=== PATIENT | female | born 1945 | race Caucasian/White ===

== ENCOUNTER 2017-01-04 23:29 | Inpatient (IN) | payer MEDICARE, BC ==
--- NOTE | 2017-01-04 23:50 | ERNOTE ---
Neuro HPI ER Record Presenting Symptoms: confusion Time Seen by Provider: 01/04/17 23:38 Source: family Exam Limitations: clinical condition Immunizations: IMMUNIZATION HX Immunizations Up to Date Yes History of Influenza Vaccine No Hx Pneumococcal Vaccination Yes Allergies/Adverse Reactions: Allergies Allergy/AdvReac Type Severity Reaction Status Date / Time clidinium [Clidinium] Allergy Unknown Verified 06/27/16 09:02 codeine [Codeine] Allergy Unknown Verified 06/27/16 09:02 escitalopram Allergy Unknown Verified 06/27/16 09:02 latex Allergy Unknown Verified 06/27/16 09:02 hydromorphone HCl Allergy Verified 06/27/16 09:02 [From Dilaudid] opoid AdvReac Severe Uncoded 06/27/16 09:02 Home Medications: HOME MEDICATIONS Aspirin [Aspirin EC] 81 mg PO DAILY 01/25/16 [Last Taken Unknown] Clopidogrel Bisulfate [Plavix] 75 mg PO DAILY 01/25/16 [Last Taken Unknown] Nitroglycerin 0.4 mg SL Q5MIN 01/25/16 [Last Taken Unknown] Sennosides [Senna-Extra] 17.2 mg PO DAILY 01/25/16 [Last Taken Unknown] traMADol HCL [Ultram] 100 mg PO QID PRN 01/25/16 [Last Taken Unknown] Atorvastatin Calcium [Lipitor] 80 mg PO HS tablet 01/28/16 [Last Taken Unknown] Insulin Lispro [Humalog] 0 - 24 units SQ ACHS #1 vial 01/28/16 [Last Taken Unknown] Brimonidine Tartrate [Brimonidine 0.2% Ophthalmic Solution] 1 drop EACHEYE BID 06/14/16 [Last Taken Unknown] Gabapentin [Neurontin] 600 mg PO TID 06/14/16 [Last Taken Unknown] Insulin Detemir [Levemir] 36 units SC BID 06/14/16 [Last Taken Unknown] Levothyroxine Sodium [Synthroid] 88 mcg PO DAILY 06/14/16 [Last Taken Unknown] Oxybutynin Chloride [Ditropan] 15 mg PO TID 06/14/16 [Last Taken Unknown] Chlorhexidine Gluconate [Periogard Oral Rinse 0.12%] 15 ml MM DAILY 01/05/17 [ Last Taken Unknown] Docusate Sodium [Colace] 100 mg PO BID 02/24/17 [Last Taken Unknown] Insulin Glargine,Hum.rec.anlog [Lantus] 15 unit SQ HS 01/05/17 [Last Taken Unknown] Lisinopril 5 mg PO BID 01/05/17 [Last Taken Unknown] Metoprolol Succinate 50 mg PO DAILY 01/05/17 [Last Taken Unknown] Polyvinyl Alcohol [Artificial Tears] 1 drop OP DAILY PRN 01/05/17 [Last Taken Unknown] Potassium Chloride [K-Dur] 20 meq PO DAILY 01/05/17 [Last Taken Unknown] Ranolazine [Ranexa] 500 mg PO BID 01/05/17 [Last Taken Unknown] - History of Present Illness Narrative: Pt had 15 teeth pulled at the [facility] yesterday. Her states that she has not eaten since yesterday and has only had a few sips of juice and water today. She has become more and more confused and a bit combative. he has been unable to check her blood sugar due to her confusion Onset: gradual onset Severity: moderate, severe - Character of Deficits Additional Deficits: Present: weakness, cannot walk, cannot stand Baseline Cognition: Present: alert, oriented x 4 Associated Symptoms: Reports: altered mental status, confused, agitated Prior Treament: Reports: recently seen, treated by physician - teeth pulled Review of Systems - Narrative Narrative: Pt confused and does not give much except that she has not been eating - Review of Systems Constitutional: Present: See HPI, chills, weakness. Absent: recent illness EYE: Present: no symptoms reported ENT: Present: other - mouth pain due to teeth being pulled Respiratory: Present: no symptoms reported Cardiology: Present: no symptoms reported Gastrointestinal/Abdominal: Present: no symptoms reported Genitourinary: Present: no symptoms reported Musculoskeletal: Present: no symptoms reported Skin: Present: no symptoms reported Neurological: Present: no symptoms reported Endocrine: Present: no symptoms reported Hematologic/Lymphatic: Present: no symptoms reported Psych: Present: no symptoms reported - Patient's Past Medical History Patient History - Medical: Diabetes Type 2 Insulin Dependent, Fibromyalgia, Hypothyroidism, Osteoarthritis, Osteoporosis, UTI'S, Other Patient History - Cardiac/Respiratory: Arrhythmias, CHF, Myocardial Infarction, Pneumonia Patient History - Cancer: No Hx of Cancer Patient History - Surgical Procedures: Back Surgery, Colonoscopy, Cardiac stent , EGD, Hysterectomy, Tubal Ligation, Other Patient History - Other: None - Family History Mother Family History - Medical: Father Family History - Medical: - Social History Living Situations: home Abuse History: No History of abuse Psych History: No pertinent hx Does anyone smoke in the home?: No Alcohol Use: none Drug Use: none - Immunizations Immunizations Up to Date: Yes Hx Pneumococcal Vaccination: Yes History of Influenza Vaccine: No Physical Exam - Physical Exam General Appearance: Present: wd/wn, moderate distress, lethargic, irritable Ears, Nose, Throat: Present: other - recent teeth extractions noted. Bruising over the lower jaw Neck: Present: normal inspection Respiratory: Present: no respiratory distress, no accessory muscle use, lungs clear Cardiovascular/Chest: Present: regular rate, rhythm, no murmur, normal peripheral pulses Gastrointestinal/Abdominal: Present: normal bowel sounds, nondistended, soft Extremity Exam: Present: normal inspection, no edema Neurological Exam: Present: other - generally confused and irritable Skin Exam: Present: other - bruising of her jaw and chin Lymphatic Exam: Present: no adenopathy Parks Coma Scale - Assess Eye Opening: To Voice Motor: Localizes to Pain Verbal: Confused - Total Coma Scale Total: 12 ED Progress - Results and Orders Patient's Lab Results:: I have reviewed the patient's lab results. Results and Orders: Laboratory Tests 01/04/17 01/04/17 01/05/17 00:04 00:04 00:04 WBC 8.7 Hgb 13.4 Hct 39.8 Plt Count 178 Sodium 137 Potassium 4.3 Chloride 104 Carbon Dioxide 21.9 L BUN 24 H Creatinine 1.17 Est GFR (Non-Af Amer) 48 L BUN/Creatinine Ratio 20.5 Random Glucose 360 H Lactic Acid, Venous 2.9 H* Calcium 8.3 Calcium Adj for Albumin 8.9 Total Bilirubin 0.7 AST 13 ALT 24 Alkaline Phosphatase 88 Total Protein 6.5 Albumin 2.8 L Urine Appearance Urine pH Ur Specific Cameron Urine Protein 01/05/17 00:35 WBC Hgb Hct Plt Count Sodium Potassium Chloride Carbon Dioxide BUN Creatinine Est GFR (Non-Af Amer) BUN/Creatinine Ratio Random Glucose Lactic Acid, Venous Calcium Calcium Adj for Albumin Total Bilirubin AST ALT Alkaline Phosphatase Total Protein Albumin Urine Appearance Cancelled Urine pH Cancelled Ur Specific Cameron Cancelled Urine Protein Cancelled - Vital Signs Patient's Vital Signs:: I have reviewed the patient's vital signs. - CT/Ultrasound CT/Ultrasound Narrative: Chronic small vessel ischemic disease, nothing acute - Progress/Reassessment Progress:: Unchanged Progress Note-Subjective: 01/05/17 01:25 Pt continues to complain of being cold. Pt sleeps at times but when she is bothered at all by staff for vitals, or tests she complains loudly and is mildly combative pushing staff away from her 01/05/17 01:26 Spoke with Ellie BASSETT, she agrees with admit Departure Clinical Impression: Elevated lactic acid level Altered mental status Qualifiers: Altered mental status type: delirium Qualified Code(s): R41.0 - Disorientation , unspecified Status post tooth extraction Qualifiers: Tooth loss class: unspecified tooth loss Qualified Code(s): K08.409 - Partial loss of teeth, unspecified cause, unspecified class Diabetes type 2, uncontrolled Qualifiers: Diabetes mellitus complication status: with neurologic complications Diabetes mellitus complication detail: with unspecified neuropathy - Departure Disposition: [facility] Condition: Poor
[2017-01-05 00:17] LABS: Hematocrit 39.8 % (37.0-47.0); Hemoglobin 13.4 gm/dL (12.5-16.0); Mean Cell Volume 86.1 fl (78-100); Mean Corpuscular Hgb Conc 33.7 g/dl (32-36); Mean Platelet Volume 11.5 fl (6.0-9.5); Neutrophil # 6.8 K/mm3 (1.3-6.0); Neutrophil % 78.5 % (42-75.0); Platelet Count 178 K/mm3 (150-450); Red Blood Count 4.62 M/mm3 (4.2-5.4); Red Cell Distribution Width 13.2 % (11.5-14.0); White Blood Count 8.7 K/mm3 (4.0-10.5)
[2017-01-05 00:28] LABS: Albumin * 2.8 gm/dl (3.4-5.0); Anion Gap 15.4 mmol/L (6.8-13.8); BUN/Creatinine Ratio 20.5 (9.0-21.6); Bilirubin, Total 0.7 mg/dL (0.0-1.1); Ca. Corrected For Albumin 8.9 mg/dL (8.4-10.2); Calcium * 8.3 mg/dL (7.9-10.9); Carbon Dioxide 21.9 mmol/L (24-32.6); Potassium 4.3 mmol/L (3.4-4.6); Total Protein 6.5 gm/dL (6.2-8.2)
[2017-01-05 00:51] LABS: Urine Bilirubin Negative (NEGATIVE); Urine Blood 50 /ul (NEGATIVE); Urine Ketone 50 mg/dL (NEGATIVE); Urine Nitrite Negative (NEGATIVE); Urine Protein 100 mg/dL (NEGATIVE); Urine Urobilinogen Normal (NORMAL)
[2017-01-05 00:52] LABS: Urine Appearance Clear; Urine Bacteria TRACE; Urine Color Pale Yellow; Urine RBC 0-5 /hpf (0-5); Urine WBC 0-5 /hpf (0-5)
[2017-01-05] MEDS: NORMAL SALINE 1,000 ML IV PRN ×2 (01:02→13:00)
--- OUTSIDE RECORDS SUMMARY | 2017-01-05 02:10 | XMS REPORT | Continuity of Care Document ---
:1945 Author Organization [facility] ([facility]) Address [place] [address] Phone [phone] Care Team Providers Name Role Phone Aimee Medina Primary Care Provider [phone] Source Comments This disclosure is being made pursuant to the Care Everywhere program, applicable federal and state laws, and may not contain all informaitonavailable regarding this patient.[facility] ([facility]) Active Allergies and Adverse Reactions Allergen Noted Date Severity Reactions Comments Clidinium 04/26/2016 Unknown Codeine Urticaria (Hives),Pruritus,Unknown Escitalopram 04/26/2016 Unknown Hydrocodone-Acetaminophen 07/29/2012 OTHER Hydromorphone 04/26/2016 Hallucinations Latex, Natural Rubber Urticaria (Hives),Pruritus,Unknown Povidone-Iodine Unknown Current Medications Prescription Sig. Disp. Refills Start Date End Date Status gabapentin 600 mg Take 900 mg by mouth Active tablet 3 times daily ATORVASTATIN 80 mg Take 80 mg by mouth 5 06/28/2015 Active tablet daily levothyroxine 88 Take 88 mcg by mouth Active mcg tablet every morning before breakfast aspirin 81 mg EC Take 1 tablet (81 mg 90 tablet 11/13/2015 Active tablet total) by mouth daily clopidogrel 75 mg Take 1 tablet (75 mg 90 tablet 11/13/2015 Active tablet total) by mouth daily nitroglycerin 0.4 Place 1 tablet (0.4 25 tablet 11/13/2015 Active mg SL tablet mg total) under the tongue every 5 minutes as needed for Chest pain brimonidine 0.2 % Instill 1 Drop onto 11 01/10/2016 Active ophthalmic solution both eyes every 12 hours. pantoprazole 20 mg Take 1 tablet (20 mg 30 tablet 5 04/26/2016 Active EC tablet total) by mouth daily. metoPROLol Take 2 tablets (50 30 tablet 11 08/02/2016 Active succinate 25 mg XL mg total) by mouth tablet daily. artificial tears Instill 1 Drop onto 30 Each 0 2016 Active (REFRESH PLUS) 0.5 both eyes as needed % ophthalmic for Dry eyes. dropperette insulin glargine Inject 15 Units 10 mL 0 2016 Active (LanTUS) 100 subcutaneously at unit/mL injection bedtime. vial insulin lispro Inject 5-13 Units 20 mL 0 2016 Active (HumaLOG) 100 subcutaneously 3 unit/mL injection times daily before vial meals. Breakfast 5 units, lunch 6 units, supper 8 units. SSI 1:50 for glucose >150 docusate 100 mg Take 1 capsule (100 60 capsule 0 2016 Active capsule mg total) by mouth 2 times daily as needed for Constipation. sennosides 8.6 mg Take 1-2 tablets 30 tablet 0 2016 Active tablet (8.6-17.2 mg total) by mouth 2 times daily as needed for Constipation. traMADol 50 mg Take 1-2 tablets 20 tablet 0 10/17/2016 Active tablet (50-100 mg total) by mouth every 6 hours as needed for Pain. chlorhexidine 0.12 Rinse with 10 ML for 473 mL 0 10/17/2016 Active % oral rinse 30 seconds twice daily for 10 days. Swish and spit out excess. Nothing by mouth for 30 minutes. oxybutynin 5 mg Take 5 mg by mouth 3 11 11/08/2016 Active tablet times daily. potassium chloride Take 20 mEq by mouth 0 09/04/2016 Active 20 mEq tablet daily. with food RANEXA 500 mg XR Take 500 mg by mouth 11 11/02/2016 Active tablet 2 times daily. furosemide 20 mg 1 tablet (20 mg 90 tablet 3 11/22/2016 Active tablet total) daily. Take 2 tablets daily for 2 days, then decrease to 1 tab daily. amoxicillin PO Take 500 mg by mouth Active 3 times daily. chlorhexidine 0.12 Rinse with 10 ML for 473 mL 0 01/03/2017 Active % oral rinse 30 seconds twice daily for 10 days. Swish and spit out excess. Nothing by mouth for 30 minutes. amoxicillin 500 mg Take 1 capsule (500 21 capsule 0 01/03/2017 Active capsule mg total) by mouth 3 7 times daily for 7 days. until gone. traMADol 50 mg Take 1-2 tablets 20 tablet 0 01/03/2017 Active tablet (50-100 mg total) by mouth every 6 hours as needed for Pain. Active Problems Problem Noted Date Dental caries 01/03/2017 Type 2 diabetes mellitus with ophthalmic complication 08/02/2016 Neurogenic bladder 08/02/2016 Non-ST elevation myocardial infarction (NSTEMI), initial episode of care 07/31 Ischemic chest pain 07/28/2016 Essential hypertension, benign 07/28/2016 Hyperlipidemia 07/28/2016 Diabetic ketoacidosis without coma associated with type 2 diabetes 07/28/2016 mellitus Acute cystitis without hematuria 07/28/2016 Constipation 12/11/2015 ST elevation myocardial infarction (STEMI) of inferior wall, initial 2014 episode of care CAD in [place] artery 11/09/2015 Overview: Inferior [place] & PCI dRCA, 3.0 x 16 mm, Liberte BMS, [facility] 01/2007. Inferior STEMI, PCI mRCA, 3.0 x 24 Senergy ABBEY & post-dil w/ 3.25 x 15 Quantum , [facility] 12.29.2014 Staged PCI mLAD, 3.0x 38 Senergy ABBEY & post-dil w/ 3.5 x 15 Quantum; POBA jailed D1 2.0 x12 Emerge, [facility] 12.31.2014 Dry eye syndrome 07/01/2015 Seasonal allergic conjunctivitis 07/01/2015 Proliferative diabetic retinopathy without macular edema associated with 07/01 type 2 diabetes mellitus Compression fracture 08/14/2012 Type II or unspecified type diabetes mellitus without mention of 10/14/2008 complication, uncontrolled Abdominal pain, generalized 09/21/2008 Most Recent Encounters Date Type Specialty Providers Description 01/04/2017 Telephone Cardiac Rehabilitation Teresa Urbano DO 01/03/2017 Office Visit Heart and Vascular Teresa Urbano Dx: Benign S, DO essential HTN (Primary Dx) 01/03/2017 Office Visit Dentistry Juan Barlow Dx: Pain (Primary DDS Dx) 01/03/2017 Office Visit Dentistry Juan Barlow Dx: Diabetes DDS (Primary Dx) 01/02/2017 Telephone Dentistry Kitty Kinsey Chief Comp: Dental M, RN Injury 12/19/2016 Office Visit Dentistry Atif Ivy Chief Comp: INGRIS Galvan Patient Reported Reason For Visit 11/22/2016 Office Visit Heart and Vascular Teresa Urbano Dx: Chronic S, DO systolic heart failure (Primary Dx) 11/17/2016 Office Visit Dentistry Chief Comp: Patient Reported Reason For Visit 11/17/2016 Office Visit Dentistry Bertin Mora, Dx: Infected DDS dental carries Nagi Hebert, (Primary Dx) DDS 10/26/2016 Hospital Rehabilitation Therapist, Rehab Dx: BPPV (benign Encounter paroxysmal positional vertigo), left (Primary Dx) 10/25/2016 Office Visit Heart and Vascular Teresa Urbano Chief Comp: S, DO Patient Reported Reason For Visit 10/17/2016 Office Visit Dentistry Bertin Mora, Dx: Caries DDS (Primary Dx) Atif Ivy DDS Social History Tobacco Use Types Packs/Day Years Used Date Former Smoker Cigarettes 20 Quit: 01/03/1985 Smokeless Tobacco: Never Used Alcohol Use Drinks/Week oz/Week Comments No Last Filed Vital Signs Vital Sign Reading Time Taken Blood Pressure 116/57 01/03/2017 8:18 AM [employer] Pulse 71 01/03/2017 8:18 AM [employer] Temperature 36.8 C (98.2 F) 01/03/2017 8:18 AM [employer] Respiratory Rate 18 2016 7:21 AM CDT Height 1.676 m (5' 6") 11/22/2016 11:40 AM [employer] Weight 73.029 kg (161 lb) 11/22/2016 11:40 AM [employer] Body Mass Index 26 11/22/2016 11:40 AM [employer] Oxygen Saturation 97% 2016 7:21 AM CDT Plan of Care Date Type Specialty Providers Description 01/29/2017 Appointment Dentistry Atif Ivy DDS Chief Comp: Patient [address] [place] [address] [phone] (Fax) Health Maintenance Due Date Last Done Comments Hepatitis B Vaccine (1 of 3 - Primary 1945 Series) Tdap Vaccine 1955 Td Vaccine 1962 Mammogram 1984 Zoster Vaccine 2004 Osteoporosis Screening (DXA Bone 2009 Density) Pneumococcal Vaccine (1 of 2 - PCV13) 2009 DIABETIC: Foot Exam 04/25/2011 Influenza Vaccine: Seasonal (#1) 06/12/2016 DIABETIC: Retinal Eye Exam 07/01/2016 07/01/2015 DIABETIC: Hemoglobin A1C 01/25/2017 07/28/2016, 11/10/2015, 09/21/2008 DIABETIC: Cholesterol 07/28/2017 07/28/2016, 09/21/2008 Diabetic: Hdl 07/28/2017 07/28/2016, 09/21/2008 Diabetic: Ldl 07/28/2017 07/28/2016, 09/21/2008 DIABETIC: Microalbumin 07/28/2017 07/28/2016 DIABETIC: Triglycerides 07/28/2017 07/28/2016, 09/21/2008 Colonoscopy 12/02/2018 12/02/2008 Procedures from Last 3 Months Procedure Name Priority Date/Time Associated Comments Diagnosis ABSTRACTED BY Routine 01/04/2017 11:56 AM Pain Results for this [employer] procedure are in the results section. ABSTRACTED BY Routine 10/23/2016 9:00 AM Dental caries Results for this [employer] procedure are in the results section. Results from Last 3 Months DENTOALVEOLAR SURGERY (01/04/2017 11:56 AM) Juan Huitron DDS 01/04/2017 11:56 AM Full Mouth Tooth Extraction Procedure Note Procedure Date: 01/03/17 Location:[facility] Pre-operative Diagnosis: Nonrestorable teeth #6, 8, 9, 10, 11, 12, 13, 14; 22, 23, 24, 25 26, 27, 28. Post-operative Diagnosis:Same. Faculty Surgeon: Juan Barlow Resident Surgeon: Luis Carlos Mckeon DDS Assistants: Maggie Young Procedure:Tooth extraction # 6, 8, 9, 10, 11, 12, 13, 14 ; 23, 24, 25, 26, 28([id number] x 13), Surgical removal # 22, 27 ([id number] x 2), Alveoloplasty UR,UL,LR,LL (D7310 x 4) Consent Obtained: The risks, benefits, indications, potential complications, and alternatives were explained to the patient and informed consent obtained. Description of Operation/Procedure: The patient presented [facility] the [facility] for multiple tooth extractions.The medical history was reviewed and there are no changes. A thorough pre-procedural anesthetic evaluation was completed. IV access was obtained.Appropriate monitors were placed and checked.Oxygen was administered via nasal cannula.The patient was prepped and draped in the usual fashion.Sedative agents were administered and titrated to desired effect. Local anesthetic was administered and given time to take effect. Gauze was placed to protect the oropharynx.A crestal incision was made in the maxilla and a full thickness flap was elevated. Teeth # 6, 8, 9, 10, 11, 12, 13, 14 were then extracted with elevator and forceps technique without complication. The sockets were curetted and the entire area was irrigated.The gingival tissues were trimmed and reapproximated with 3-0 chromic gut suture in continuous fashion after placement of gel foam.A crestal incision was made in the mandible and a full thickness flap was elevated.Teeth # 23, 24, 25, 26, 28 were extracted with elevator and forceps technique without complication.Teeth #22, 27 required removal of bone with a handpiece.Major alveoloplasty was completed to prepare the ridge for a prosthesis. The sockets were curetted and the entire area was irrigated.The gingival tissues were trimmed and reapproximated with 3-0 chromic gut suture in continuous fashion after placement of gel foam.Gauze was removed from the mouth and fresh gauze was placed to aid in hemostasis.The patient tolerated the procedure well and was discharged in stable condition. Agents: 6.8 cc 0.5% marcaine with 1:200,000 epinephrine 5.1cc3% carbocaine without epinephrine Findings:As above. Specimens:None. EBL:Minimal Fluids: None Suture: 3-0 chromic gut Complications:The patient tolerated the procedure well and had no complications. Plan: RTC prn. Denture fabrication after 6 weeks of healing Discharge: Patient approved for discharge by dentist. Teaching Statement: Dr. Juan Barlow was present for [place] portions of the procedure, defined as assurance of anesthesia, and was immediately available for the remainder of the procedure. Luis Carlos Mckeon DDS BLOOD GLUCOSE, BEDSIDE (01/03/2017 8:39 AM)Only the most recent of3 resultswithin the time period is included. Component Value Range Glucose, Accu-Chek 288(H) 65-99 mg/dL Specimen Blood, capillary HOSP DENT SINGLE PANOREX (EACH) (11/17/2016 1:13 PM)DENTOALVEOLAR SURGERY (10/2016 9:00 AM) Ricco Varner DDS 10/23/20169:00 AM Tooth Extraction Procedure Note Procedure Date: 10/17/16 Location:[facility] Pre-operative Diagnosis:Carious, nonrestorable tooth #3 Post-operative Diagnosis:same Faculty Surgeon: Juan Barlow Resident Surgeon: Atif Ivy DDS Assistants: Andreas Prieto Procedure:Tooth extraction #3 (D7140) with local anesthesia Consent Obtained: The risks, benefits, indications, potential complications, and alternatives were explained to the patient and informed consent obtained. Description of Operation/Procedure: The patient presented to [facility] for tooth extraction.The medical history was reviewed and there are no changes. Local anesthetic was administered and given time to take effect. Gauze was placed to protect the oropharynx.Releasing incisions were made to allow a flap buccal to #3.Tooth #3 was removed with standard elevator and forceps technique without complications.Avitene was placed and a figure 8 suture (3-0 gut).Hemostasis was .The area was irrigated with sterile saline and moist gauze was placed to aid in hemostasis. The patient was discharged in stable condition. Agents: 1.7 cc 2% lidocaine with 1:100,000 epinephrine Findings:As above. Specimens:None. EBL:Minimal Fluids: None Suture: None Complications:None RTC:prn Teaching Statement: Dr. Ricco Ding was present for fel[place] portions of the procedure, defined as assurance of anesthesia, and was immediately available for the remainder of the procedure. Atif Ivy DDS
--- OUTSIDE RECORDS SUMMARY | 2017-01-05 02:10 | XMS REPORT | Continuity of Care Document ---
:1945 Author Organization [facility] ([facility]) Address [place] [address] Phone [phone] Care Team Providers Name Role Phone Aimee Medina Primary Care Provider [phone] Source Comments This disclosure is being made pursuant to the Care Everywhere program, applicable federal and state laws, and may not contain all informaitonavailable regarding this patient.[facility] ([facility]) Active Allergies and Adverse Reactions Allergen Noted [...] initial 2014 episode of care CAD in [place] artery 11/09/2015 Overview: Inferior [place] & PCI dRCA, 3.0 x 16 mm, [...] Taken Blood Pressure 116/57 01/03/2017 8:18 AM [employer] Pulse 71 01/03/2017 8:18 AM [employer] Temperature 36.8 C (98.2 F) 01/03/2017 8:18 AM [employer] Respiratory Rate 18 2016 7:21 AM CDT Height 1.676 m (5' 6") 11/22/2016 11:40 AM [employer] Weight 73.029 kg (161 lb) 11/22/2016 11:40 AM [employer] Body Mass Index 26 11/22/2016 11:40 AM [employer] Oxygen Saturation 97% 2016 7:21 AM CDT Plan of Care Date Type Specialty Providers Description 01/29/2017 Appointment Dentistry Atif Ivy DDS Chief Comp: Patient [address] [place] [address] [phone] (Fax) Health Maintenance Due Date Last Done [...] AM Pain Results for this [employer] procedure are in the results section. ABSTRACTED BY Routine 10/23/2016 9:00 AM Dental caries Results for this [employer] procedure are in the results section. Results [...] of Operation/Procedure: The [facility] presented [facility] for multiple tooth extractions.The medical history [...] of Operation/Procedure: The patient presented to the [facility] for tooth extraction.The medical history was [...]
--- NOTE | 2017-01-05 02:43 | HP ---
Chief Complaint - Chief Complaint Date of Service: 01/05/17 Time of Service: 02:33 Chief Complaint: "Confusion, Agitation,". Source of HPI- Pt; unreliable due to AMS, pt's Addison, ER provider report. History of Present Illness: Mrs Gaona is a 71-yr-old [place] pt of Dr. Aimee Medina with a PMH of: Angina at rest, Chronic Pain Syndrome, DM II, Glaucoma, HLD, IBS, CT & Osteoporosis. History is unobtainable from pt due to AMS. She is curled up on the stretcher and when asked any questions, she repeatedly answers, "cold! cold!." I reached the pt's , Addison, by phone and he was able to relay pt's sickness events that led to coming to the ED tonight. He states that pt, was seen by the Dentist at the [facility] on 01/03/17 for a planned teeth extraction. A referral had been made by Dr. An for the remaining teeth to be extracted due to poor/non- restorable dentition, with the plan to replace with complete dentures. On the evening of , he gave her the prescribed Tramadol for pain. He is unsure if she was started on any prophylactic antibiotic. Then on morning hours of 01/04/17, he gave her another Tramadol for pain. Later, he noticed that the pt was acting confused. But, he is uncertain if the confusion began before or after Tramadol administration. He reports that as the day progressed, the confusion got worse. She could not tell where their bedroom was after using the toilet. Addison says that she was also saying " silly things." She also could not eat or drink anything and did not take any other medications during the day. He states that he attempted to help her out of bed to bring her to the hospital, but pt could not follow commands to move or stand up. He then chose to call the EMS and she was brought to [facility] ER. During evaluation at the ED, pt got agitated easily and would not cooperate with treatment cares. A CT of the head did not have any acute findings. The CXR, hematology & chemistry labs, and UA were all also unremarkable. Pt remained in somnolence at the time of exam and would yell with any external stimuli. She will be admitted under observation status due to mental Status changes. - Patient's Past Medical History Patient History - Medical: Diabetes Type 2 Insulin Dependent, Fibromyalgia, Glaucoma, Hypothyroidism, Osteoarthritis, Osteoporosis, UTI'S, Other - Angina at rest, IBS, Patient History - Cardiac/Respiratory: Arrhythmias, CHF, Hyperlipidemia, Myocardial Infarction, Pneumonia Patient History - Cancer: No Hx of Cancer Patient History - Surgical Procedures: Back Surgery, Colonoscopy, Cardiac stent , EGD, Hysterectomy, Tubal Ligation, Other Patient History - Other: None - Family History Mother Family History - Medical: Father Family History - Medical: - Social History Living Situations: home Abuse History: No History of abuse Psych History: No pertinent hx Does anyone smoke in the home?: No Smoking Status: Former smoker Alcohol Use: none Drug Use: none - Immunizations Immunizations Up to Date: Yes Hx Pneumococcal Vaccination: Yes History of Influenza Vaccine: Yes Review Of Systems (GEN) - Review of Systems Additional Comments: ROS unobtainable due to AMS. Immunizations: IMMUNIZATION HX Immunizations Up to Date Yes History of Influenza Vaccine No Hx Pneumococcal Vaccination Yes Allergies/Adverse Reactions: Allergies Allergy/AdvReac Type Severity Reaction Status Date / Time clidinium [Clidinium] Allergy Unknown Verified 01/05/17 03:52 codeine [Codeine] Allergy Unknown Verified 01/05/17 03:52 escitalopram Allergy Unknown Verified 01/05/17 03:52 latex Allergy Unknown Verified 01/05/17 03:52 hydromorphone HCl Allergy Verified 01/05/17 03:52 [From Dilaudid] opoid AdvReac Severe Uncoded 01/05/17 03:52 Home Medications: HOME MEDICATIONS Aspirin [Aspirin EC] 81 mg PO DAILY 01/25/16 [Last Taken Unknown] Clopidogrel Bisulfate [Plavix] 75 mg PO DAILY 01/25/16 [Last Taken Unknown] Nitroglycerin 0.4 mg SL Q5MIN 01/25/16 [Last Taken Unknown] Sennosides [Senna-Extra] 17.2 mg PO DAILY 01/25/16 [Last Taken Unknown] traMADol HCL [Ultram] 100 mg PO QID PRN 01/25/16 [Last Taken Unknown] Atorvastatin Calcium [Lipitor] 80 mg PO HS tablet 01/28/16 [Last Taken Unknown] Insulin Lispro [Humalog] 0 - 24 units SQ ACHS #1 vial 01/28/16 [Last Taken Unknown] Brimonidine Tartrate [Brimonidine 0.2% Ophthalmic Solution] 1 drop EACHEYE BID 06/14/16 [Last Taken Unknown] Gabapentin [Neurontin] 600 mg PO TID 06/14/16 [Last Taken Unknown] Insulin Detemir [Levemir] 36 units SC BID 06/14/16 [Last Taken Unknown] Levothyroxine Sodium [Synthroid] 88 mcg PO DAILY 06/14/16 [Last Taken Unknown] Oxybutynin Chloride [Ditropan] 15 mg PO TID 06/14/16 [Last Taken Unknown] Chlorhexidine Gluconate [Periogard Oral Rinse 0.12%] 15 ml MM DAILY 01/05/17 [ Last Taken Unknown] Docusate Sodium [Colace] 100 mg PO BID 01/05/17 [Last Taken Unknown] Fexofenadine HCl 180 mg PO BID 01/05/17 [Last Taken Unknown] Furosemide [Lasix] 40 mg PO DAILY 01/05/17 [Last Taken Unknown] Insulin Glargine,Hum.rec.anlog [Lantus] 15 unit SQ HS 01/05/17 [Last Taken Unknown] Lisinopril 5 mg PO BID 01/05/17 [Last Taken Unknown] Metoprolol Succinate 50 mg PO DAILY 01/05/17 [Last Taken Unknown] Oxybutynin Chloride [Ditropan Xl] 10 mg PO DAILY 01/05/17 [Last Taken Unknown] Pantoprazole Sodium [Protonix] 20 mg PO DAILY 01/05/17 [Last Taken Unknown] Polyvinyl Alcohol [Artificial Tears] 1 drop OP DAILY PRN 01/05/17 [Last Taken Unknown] Potassium Chloride [K-Dur] 20 meq PO DAILY 01/05/17 [Last Taken Unknown] Ranolazine [Ranexa] 500 mg PO BID 01/05/17 [Last Taken Unknown] Exam - Exam Vital Signs: Vital Signs - Last Taken Temp 37.2 C 01/05/17 02:01 Pulse 105 H 01/05/17 02:01 Resp 18 01/05/17 02:01 BP 187/70 01/05/17 02:01 Pulse Ox 98 01/05/17 02:01 Constitutional: Present: Moderate distress, Somnolent, Other - Yells when touched, says she is cold., Elderly ENT Exam: Present: other - Bruising on chin and around the mouth. Missing dentition, stitches on lower gums, Eye Exam: bilateral eye: normal inspection, PERRL Neck: Present: trachea midline, tender lateral Back Exam: Present: normal inspection, no CVA tenderness Breasts: Present: Exam deferred Respiratory: Present: lungs clear, no accessory muscle use, No wheezing Cardiovascular/Chest: Present: normal peripheral pulses, regular rate, rhythm, no edema, no murmur Abdomen: Present: Normal bowel sounds, soft, nontender /Rectal: Present: Exam deferred Extremity: Present: normal inspection, no pedal edema Skin Exam: Present: other - ecchymosis on mouth region. Lymphatic: Present: no adenopathy Neurologic: Present: disoriented x 3 Appearance: Present: impaired insight Eye contact: Present: refused to answer, uncooperative Thoughts: Present: no apparent hallucination, incoherent Diagnostic Studies: Laboratory Results WBC 8.7 K/mm3 (4.0-10.5) 01/04/17 00:04 RBC 4.62 M/mm3 (4.2-5.4) 01/04/17 00:04 Hgb 13.4 gm/dL (12.5-16.0) 01/04/17 00:04 Hct 39.8 % (37.0-47.0) 01/04/17 00:04 MCV 86.1 fl (78-100) 01/04/17 00:04 MCH 29.0 pg (27-31) 01/04/17 00:04 MCHC 33.7 g/dl (32-36) 01/04/17 00:04 RDW 13.2 % (11.5-14.0) 01/04/17 00:04 Plt Count 178 K/mm3 (150-450) 01/04/17 00:04 MPV 11.5 fl (6.0-9.5) H 01/04/17 00:04 Immature Gran % (Auto) 0.30 % (0.001-0.429) 01/04/17 00:04 Immature Gran # (Auto) 0.03 K/mm3 (0.000-0.0310) 01/04/17 00:04 Neutrophils % 78.5 % (42-75.0) H 01/04/17 00:04 Lymphocytes % 13.0 % (20-51) L 01/04/17 00:04 Monocytes % 7.6 % (0.0-9) 01/04/17 00:04 Eosinophils % 0.1 % (0.0-3.0) 01/04/17 00:04 Basophils % 0.5 % (0.0-1.0) 01/04/17 00:04 Nucleated RBC % 0.0 k/mm3 (0-1) 01/04/17 00:04 Neutrophils # 6.8 K/mm3 (1.3-6.0) H 01/04/17 00:04 Lymphocytes # 1.1 k/mm3 (1.5-3.5) L 01/04/17 00:04 Monocytes # 0.7 k/mm3 (0.0-1.0) 01/04/17 00:04 Eosinophils # 0.0 k/mm3 (0.0-0.7) 01/04/17 00:04 Absolute Basophils 0.0 k/mm3 (0.0-0.1) 01/04/17 00:04 Sodium 137 mmol/L (132-142) 01/04/17 00:04 Plasma Sodium 141 mmol/L (130-142) 01/04/17 00:04 Potassium 4.3 mmol/L (3.4-4.6) 01/04/17 00:04 Chloride 104 mmol/L (97-106) 01/04/17 00:04 Carbon Dioxide 21.9 mmol/L (24-32.6) L 01/04/17 00:04 Anion Gap 15.4 mmol/L (6.8-13.8) H 01/04/17 00:04 BUN 24 mg/dL (3-23) H 01/04/17 00:04 Creatinine 1.17 mg/dL (0.4-1.4) 01/04/17 00:04 Est GFR (Non-Af Amer) 48 mL/min (60-130) L 01/04/17 00:04 BUN/Creatinine Ratio 20.5 (9.0-21.6) 01/04/17 00:04 Random Glucose 360 mg/dL (70-110) H 01/04/17 00:04 Lactic Acid, Venous 2.9 mmol/L (0.4-2.0) H* 01/05/17 00:04 Calcium 8.3 mg/dL (7.9-10.9) 01/04/17 00:04 Calcium Adj for Albumin 8.9 mg/dL (8.4-10.2) 01/04/17 00:04 Total Bilirubin 0.7 mg/dL (0.0-1.1) 01/04/17 00:04 AST 13 U/L (0-48) 01/04/17 00:04 ALT 24 U/L (19-67) 01/04/17 00:04 Alkaline Phosphatase 88 U/L (50-170) 01/04/17 00:04 Total Protein 6.5 gm/dL (6.2-8.2) 01/04/17 00:04 Albumin 2.8 gm/dl (3.4-5.0) L 01/04/17 00:04 Urine Color Pale yellow 01/05/17 00:46 Urine Appearance Clear 01/05/17 00:46 Urine pH 6.0 pH (5.0-7.0) 01/05/17 00:46 Ur Specific Excello 1.020 SP.GR. (1.005-1.010) 01/05/17 00:46 Urine Protein 100 mg/dL (NEGATIVE) H 01/05/17 00:46 Urine Glucose (UA) >=1000 mg/dL (NEGATIVE) H 01/05/17 00:46 Urine Ketones 50 mg/dL (NEGATIVE) 01/05/17 00:46 Urine Blood 50 /ul (NEGATIVE) H 01/05/17 00:46 Urine Nitrate Negative (NEGATIVE) 01/05/17 00:46 Urine Bilirubin Negative mg/dl (NEGATIVE) 01/05/17 00:46 Prot Sulfosalicylic Acd 4+ mg/dL (0) H 01/05/17 00:46 Urine Urobilinogen Normal EU/dl (NORMAL) 01/05/17 00:46 Ur Leukocyte Esterase Negative /ul (NEGATIVE) 01/05/17 00:46 Urine RBC 0-5 /hpf (0-5) 01/05/17 00:46 Urine WBC 0-5 /hpf (0-5) 01/05/17 00:46 Ur Epithelial Cells 5-10 /hpf (0-5) H 01/05/17 00:46 Ur Squamous Epith Cells Cancelled 01/05/17 00:35 Ur Transition Epith Cell Cancelled 01/05/17 00:35 Ur Renal Epithelial Cell Cancelled 01/05/17 00:35 Calcium Oxalate Crystal Cancelled 01/05/17 00:35 Uric Acid Crystals Cancelled 01/05/17 00:35 Triple Phos Crystals Cancelled 01/05/17 00:35 Other Crystals Cancelled 01/05/17 00:35 Amorphous Sediment Cancelled 01/05/17 00:35 Urine Bacteria Trace (NONE) 01/05/17 00:46 Hyaline Casts Cancelled 01/05/17 00:35 Fine Granular Casts Cancelled 01/05/17 00:35 Coarse Granular Casts Cancelled 01/05/17 00:35 Waxy Casts Cancelled 01/05/17 00:35 RBC Casts Cancelled 01/05/17 00:35 WBC Casts Cancelled 01/05/17 00:35 Other Casts Cancelled 01/05/17 00:35 Urine Mucus Cancelled 01/05/17 00:35 Urine Trichomonas Cancelled 01/05/17 00:35 Urine Yeast Cancelled 01/05/17 00:35 Urine Sperm Cancelled 01/05/17 00:35 Ur Oval Fat Bodies Cancelled 01/05/17 00:35 Urine Culture Comments Culture to follow 01/05/17 00:46 Assessment/Plan - Assessment/Plan (1) Altered mental status Assessment: Mrs. gaona'kash AMS is noted with somnolence, agitation/irritability, confusion and inability to cooperate or follow commands. The head CT has negative findings for CVA, hence making it unlikely that this may be related to vascular dementia , but can consider MRI of the brain should the other test proof to be negative or if there is no improvement in cognitive functioning. The conditions that are likely contributing to the pt's delirious state are: a.) Sedation drugs- with the pt undergoing recent invasive procedure which required use of conscious sedation, it is likely the agitation or somnolence are the after effects of the sedating agents. b.) Narcotic/opioids- She received two doses of Tramadol, it's use on elderly can cause impaired psychomotor function. Will hold this med as well as other medications except for antihypertensive medications. c.) Infection- WBC was normal, the CXR, UA did not show any infection. Lactic acid was elevated at 2.9. However, with recent invasive procedure, blood stream infection cannot be ruled out. Will obtain blood cultures. It might be beneficial to cover with prophylactic antibiotics as the records show that she had gross decay involving the dentition that had remained prior to the extraction on 01/03/17. Will start clindamycin, could also consider Ampicillin sulbactam 3 gm q 6 hrs as it has broader coverage against oral anaerobes. Problem: Acute Qualifiers: Altered mental status type: delirium Qualified Code(s): R41.0 - Disorientation, unspecified (2) Lactic acidosis Assessment: Even though lactic acid was elevated, she has NO fevers, tachycardia, nor elevation of WBC to suggest sepsis. However, her serum blood sugar was found to be 360. she had an anion gap of 15.3. and may have had a very mild DKA. A moderate degree of lactic acidodis can occur in some pts with DKA. Will monitor V.S & CBC. Problem: Acute (3) Potential alteration in nutrition Assessment: Nutrition may be affected due to teeth extraction. Will involve sander machine to assist with dietary recommendations. Problem: Acute (4) Generalized weakness Assessment: Involve PT/OT for strengthening. Problem: Acute (5) Diabetes type 2, uncontrolled Assessment: continue accuchecks AC/HS, will cut back on Lantus to 15 units as she is not eating well. Add SSI. Problem: Chronic Qualifiers: Diabetes mellitus complication status: with neurologic complications Diabetes mellitus complication detail: with unspecified neuropathy (6) Chronic pain Assessment: Hold any sedating medications due to AMS/somnolence. Problem: Chronic Qualifiers: Chronic pain type: chronic pain syndrome Qualified Code(s): G89.4 - Chronic pain syndrome (7) GERD (gastroesophageal reflux disease) Assessment: Stable- on Omeprazole. Problem: Chronic (8) Hyperlipemia Problem: Chronic (9) HTN (hypertension) Assessment: Continue Lisinopril and metoprolol. Problem: Chronic Qualifiers: Hypertension type: essential hypertension Qualified Code(s): I10 - Essential (primary) hypertension
[2017-01-05] MEDS ORDERED: INSULIN LISPRO 100 UNITS/ML VIAL SC SCH (02:45)
[2017-01-05 04:16] LABS: Urine Bilirubin Negative (NEGATIVE); Urine Blood 50 /ul (NEGATIVE); Urine Ketone 50 mg/dL (NEGATIVE); Urine Nitrite Negative (NEGATIVE); Urine Protein 100 mg/dL (NEGATIVE); Urine Urobilinogen Normal (NORMAL)
[2017-01-05 04:17] LABS: Urine Appearance Slightly Cloudy; Urine Bacteria None Seen; Urine Color Yellow; Urine RBC 0-5 /hpf (0-5); Urine WBC 0-5 /hpf (0-5)
[2017-01-05] MEDS: CLINDAMYCIN PHOSPHATE 600 MG in DEXTROSE 5 % IN WATER 100 ML IV SCH ×4 (05:47→13:42)
[2017-01-05 06:06] LABS: Hemoglobin 12.6 gm/dL (12.5-16.0); Mean Cell Volume 86.7 fl (78-100); Mean Corpuscular Hemoglobin 29.5 pg (27-31); Mean Corpuscular Hgb Conc 34.1 g/dl (32-36); Mean Platelet Volume 11.6 fl (6.0-9.5); Neutrophil # 8.4 K/mm3 (1.3-6.0); Neutrophil % 78.4 % (42-75.0); Platelet Count 184 K/mm3 (150-450); Red Blood Count 4.27 M/mm3 (4.2-5.4); Red Cell Distribution Width 13.2 % (11.5-14.0); White Blood Count 10.7 K/mm3 (4.0-10.5)
[2017-01-05 06:26] LABS: Anion Gap 13.8 mmol/L (6.8-13.8); BUN/Creatinine Ratio 20.2 (9.0-21.6); Calcium * 8.3 mg/dL (7.9-10.9); Carbon Dioxide 24.1 mmol/L (24-32.6); Estimated Creat Clear 43.7; Potassium 3.9 mmol/L (3.4-4.6)
[2017-01-05] MEDS: INSULIN LISPRO 100 UNITS/ML VIAL SC SCH ×4 (06:56→23:58)
[2017-01-05] MEDS: LISINOPRIL 5 MG TABLET PO SCH (09:03)
[2017-01-05] MEDS: METOPROLOL SUCCINATE 50 MG TABLET.SA PO SCH (09:03)
[2017-01-05] MEDS: PANTOPRAZOLE SODIUM 20 MG TABLET.DR PO SCH (09:03)
[2017-01-05] MEDS ORDERED: POLYVINYL ALCOHOL 150 DROP BTL OP PRN (12:50)
[2017-01-05] MEDS ORDERED: INSULIN DETEMIR 100 UNITS/ML VIAL SC SCH (13:00)
[2017-01-05] MEDS ORDERED: ACETAMINOPHEN 650 MG SUPP.RECT RC PRN (14:18)
[2017-01-05] MEDS ORDERED: INSULIN GLARGINE,HUM.REC.ANLOG 100 UNITS/ML VIAL SC SCH (21:00)
[2017-01-05] MEDS: DOCUSATE SODIUM 100 MG CAPSULE PO SCH (23:57)
[2017-01-05] MEDS: BRIMONIDINE TARTRATE 50 DROP BTL EACHEYE SCH (23:57)
[2017-01-06] MEDS: LORazepam 2 MG/ML DISP.SYRIN IV PRN (00:10)
[2017-01-06] MEDS: INSULIN DETEMIR 100 UNITS/ML VIAL SC SCH ×2 (01:33→10:02)
[2017-01-06] MEDS: KETOROLAC TROMETHAMINE 30 MG/ML VIAL IV PRN ×3 (01:34→23:12)
[2017-01-06 06:31] LABS: Hematocrit 35.6 % (37.0-47.0); Hemoglobin 11.8 gm/dL (12.5-16.0); Mean Cell Volume 87.9 fl (78-100); Mean Corpuscular Hemoglobin 29.1 pg (27-31); Mean Corpuscular Hgb Conc 33.1 g/dl (32-36); Mean Platelet Volume 11.7 fl (6.0-9.5); Neutrophil # 6.8 K/mm3 (1.3-6.0); Neutrophil % 75.6 % (42-75.0); Platelet Count 183 K/mm3 (150-450); Red Blood Count 4.05 M/mm3 (4.2-5.4); Red Cell Distribution Width 13.4 % (11.5-14.0)
[2017-01-06 06:46] LABS: Anion Gap 19.1 mmol/L (6.8-13.8); Calcium * 8.2 mg/dL (7.9-10.9); Carbon Dioxide 16.9 mmol/L (24-32.6); Estimated Creat Clear 47.6
[2017-01-06] MEDS: LEVOTHYROXINE SODIUM 88 MCG TABLET PO SCH (07:39)
[2017-01-06] MEDS: INSULIN LISPRO 100 UNITS/ML VIAL SC SCH ×3 (07:51→17:44)
[2017-01-06] MEDS ORDERED: ASPIRIN 81 MG TABLET.DR PO SCH (09:00)
[2017-01-06] MEDS: ZIPRASIDONE HCL 20 MG CAPSULE PO SCH (09:59)
[2017-01-06] MEDS: SENNOSIDES 8.6 MG TABLET PO SCH (10:00)
[2017-01-06] MEDS: LISINOPRIL 5 MG TABLET PO SCH ×2 (10:00)
[2017-01-06] MEDS: DOCUSATE SODIUM 100 MG CAPSULE PO SCH (10:00)
[2017-01-06] MEDS: BRIMONIDINE TARTRATE 50 DROP BTL EACHEYE SCH (10:00)
[2017-01-06] MEDS: PANTOPRAZOLE SODIUM 20 MG TABLET.DR PO SCH (10:01)
[2017-01-06] MEDS: CLOPIDOGREL BISULFATE 75 MG TABLET PO SCH (10:01)
[2017-01-06] MEDS: METOPROLOL SUCCINATE 50 MG TABLET.SA PO SCH (10:01)
[2017-01-06] MEDS: CHLORHEXIDINE GLUCONATE 15 ML UDC MM SCH (10:02)
[2017-01-06] MEDS: 0.5 NORMAL SALINE 1,000 ML IV PRN ×2 (10:04→20:13)
--- NOTE | 2017-01-06 16:09 | PN ---
Subjective - Date and Time Seen Date: 01/06/17 Time: 16:05 Subjective Narrative: Remains very confused. sugars on the high side. very little pain. Objective - Review of Systems Generalized/Overall Review: Reports: Malaise EENTM: Reports: Mouth Pain - changes of dental extraction Respiratory: Reports: No Symptoms Reported Cardiac: Reports: No Symptoms Reported Abdominal: Reports: No Symptoms Reported Genitourinary Symptoms: Reports: No Symptoms Reported Musculoskeletal Complaints: Reports: No Symptoms Reported Neurological: Reports: No Symptoms Reported Skin: Reports: No Symptoms Reported Endocrine: Reports: No Symptoms Reported Misc: All systems neg except as marked - Vitals Vitals: Last Vital Signs Selected Entries 01/06/17 14:00 Temperature 36.7 C Temperature Oral Source Pulse Rate 71 Respiratory 20 Rate Respiratory Normal Depth Blood Pressure 153/55 Blood Pressure Supine Position O2 Sat by Pulse 99 Oximetry Oxygen Delivery Room Air Method - Abnormal Lab Findings Abnormal Lab Findings: Abnormal Lab Results 01/06/17 01/06/17 Range/Units 05:00 05:00 RBC 4.05 L (4.2-5.4) M/mm3 Hgb 11.8 L (12.5-16.0) gm/dL Hct 35.6 L (37.0-47.0) % MPV 11.7 H (6.0-9.5) fl Neutrophils % 75.6 H (42-75.0) % Lymphocytes % 17.3 L (20-51) % Neutrophils # 6.8 H (1.3-6.0) K/mm3 Plasma Sodium 143 H (130-142) mmol/L Chloride 108 H (97-106) mmol/L Carbon Dioxide 16.9 L (24-32.6) mmol/L Anion Gap 19.1 H (6.8-13.8) mmol/L BUN 24 H (3-23) mg/dL Est GFR (Non-Af Amer) 58 L (60-130) mL/min BUN/Creatinine Ratio 24.0 H (9.0-21.6) Random Glucose 300 H (70-110) mg/dL - Exam Constitutional: Present: Well developed, Well nourished, Mild distress, Looks Older than stated age ENT Exam: Present: normal ENT inspection Neck: Present: normal inspection Respiratory: Present: lungs clear, no respiratory distress Cardiovascular/Chest: Present: regular rate, rhythm, no murmur Abdomen: Present: Normal bowel sounds, soft, nontender, nondistended, no rebound tenderness, no hepatospenomegaly, no masses Extremity: Present: normal inspection, pedal edema Skin Exam: Present: normal color, warm/dry, no cyanosis Neurologic: Present: disoriented x 3 Appearance: Present: neat Eye contact: Present: other Assessment/Plan Plan Narrative: adjust insulin. follow labs. add geodon. - Problems/Diagnosis (1) Altered mental status Problem: Acute Qualifiers: Altered mental status type: delirium Qualified Code(s): R41.0 - Disorientation, unspecified (2) Generalized weakness Problem: Acute (3) Status post tooth extraction Problem: Acute Qualifiers: Tooth loss class: unspecified tooth loss Qualified Code(s): K08.409 - Partial loss of teeth, unspecified cause, unspecified class (4) Diabetes type 2, uncontrolled Problem: Chronic Qualifiers: Diabetes mellitus complication status: with neurologic complications Diabetes mellitus complication detail: with unspecified neuropathy (5) HTN (hypertension) Problem: Chronic Qualifiers: Hypertension type: essential hypertension Qualified Code(s): I10 - Essential (primary) hypertension (6) GERD (gastroesophageal reflux disease) Problem: Chronic Qualifiers: Esophagitis presence: without esophagitis Qualified Code(s): K21.9 - Gastro -esophageal reflux disease without esophagitis
[2017-01-06] MEDS ORDERED: INSULIN DETEMIR 100 UNITS/ML VIAL SC SCH (21:00)
[2017-01-06] MEDS ORDERED: DEXTROSE 50%-WATER 50 ML SYRG IV ONE (23:06)
[2017-01-07] MEDS: LORazepam 2 MG/ML DISP.SYRIN IV PRN (03:40)
[2017-01-07 05:13] LABS: Hematocrit 33.5 % (37.0-47.0); Hemoglobin 11.4 gm/dL (12.5-16.0); Mean Cell Volume 87.2 fl (78-100); Mean Corpuscular Hemoglobin 29.7 pg (27-31); Mean Platelet Volume 10.9 fl (6.0-9.5); Neutrophil # 4.8 K/mm3 (1.3-6.0); Platelet Count 170 K/mm3 (150-450); Red Blood Count 3.84 M/mm3 (4.2-5.4); Red Cell Distribution Width 13.6 % (11.5-14.0); White Blood Count 7.3 K/mm3 (4.0-10.5)
[2017-01-07 05:16] LABS: Anion Gap 12.1 mmol/L (6.8-13.8); Calcium * 8.2 mg/dL (7.9-10.9); Carbon Dioxide 24.4 mmol/L (24-32.6); Estimated Creat Clear 53.5; Potassium 3.5 mmol/L (3.4-4.6)
[2017-01-07] MEDS: KETOROLAC TROMETHAMINE 30 MG/ML VIAL IV PRN (05:48)
[2017-01-07] MEDS: 0.5 NORMAL SALINE 1,000 ML IV PRN (06:25)
[2017-01-07] MEDS: LEVOTHYROXINE SODIUM 88 MCG TABLET PO SCH (06:28)
[2017-01-07] MEDS: ACETAMINOPHEN 325 MG TABLET PO PRN ×2 (06:30→18:39)
--- NOTE | 2017-01-07 06:51 | PN ---
<Ellie Salinas - Last Filed: 01/07/17 07:10> Subjective - Date and Time Seen Date: 01/07/17 Time: 06:44 Subjective Narrative: Mrs. Arriaza is awake and in mild distress. Able to communicate needs to nursing. Says her mouth hurts a lot. Is very emotional about not having any teeth. Nursing reports hypoglycemic events in the night and this am with BS of 45 & 59. Toradol provides pain relief to the according to nursing. Objective - Vitals Vitals: Last Vital Signs Temp 36.4 C L 01/07/17 06:31 Pulse 77 01/07/17 06:31 Resp 20 01/07/17 06:31 BP 131/59 01/07/17 06:31 Pulse Ox 99 01/07/17 06:31 - Abnormal Lab Findings Abnormal Lab Findings: Abnormal Lab Results 01/06/17 01/07/17 01/07/17 Range/Units 05:00 05:00 05:00 RBC 3.84 L (4.2-5.4) M/mm3 Hgb 11.4 L (12.5-16.0) gm/dL Hct 33.5 L (37.0-47.0) % MPV 10.9 H (6.0-9.5) fl Sodium 145 H (132-142) mmol/L Plasma Sodium 143 H 144 H (130-142) mmol/L Chloride 108 H 112 H (97-106) mmol/L Carbon Dioxide 16.9 L (24-32.6) mmol/L Anion Gap 19.1 H (6.8-13.8) mmol/L BUN 24 H 24 H (3-23) mg/dL Est GFR (Non-Af Amer) 58 L (60-130) mL/min BUN/Creatinine Ratio 24.0 H 27.0 H (9.0-21.6) Random Glucose 300 H 66 L D (70-110) mg/dL - Exam Constitutional: Present: Alert, Oriented x3, Moderate distress ENT Exam: Present: nasal congestion, dry mucous membranes, other - Missing dentition in upper/lower gums. Has stitches. Ecchymosis around her mouth. Neck: Present: full range of motion. Absent: lymphadenopathy (R), lymphadenopathy (L) Breasts: Present: Exam deferred Respiratory: Present: lungs clear, no accessory muscle use, No wheezing Cardiovascular/Chest: Present: regular rate, rhythm, no chest tenderness, no murmur Abdomen: Present: Normal bowel sounds, soft, nontender /Rectal: Present: Exam deferred Extremity: Present: non-tender, normal inspection, no pedal edema Skin Exam: Present: other - Echymossis on mouth region. Lymphatic: Present: no adenopathy Neurologic: Present: alert, oriented x 3. Absent: dizzy/light-headedness Appearance: Present: appropriate appearance Eye contact: Present: cooperative, normal speech Thoughts: Present: no apparent hallucination, other - Very emotional & teary Assessment/Plan - Problems/Diagnosis (1) Altered mental status Problem: Acute QualifierTitle: Altered mental status type: delirium Qualified Code(s): R41.0 - Disorientation, unspecified Narrative: Mrs. spain AMS was initially noted with somnolence, agitation/irritability, confusion and inability to cooperate or follow commands. The head CT has negative findings for CVA, hence making it unlikely that this may be related to vascular dementia. Etiology of AMS remained unclear as there was no use of sedation during the teeth extraction surgical procedure. She received Tramadol and this could have been the cause too. There was no clear sign of infection but she was started on prophylactic antibiotics due to tooth decay she had prior to the extraction. During the night, nursing report having somewhat clear mentation. She is recalling that she had dental procedure and able to communicate about her pain. Will continue to monitor closely. Could consider MRI of the brain if there is no improvement in cognitive functioning. (2) Status post tooth extraction Problem: Acute QualifierTitle: Tooth loss class: unspecified tooth loss Qualified Code(s ): K08.409 - Partial loss of teeth, unspecified cause, unspecified class Narrative: Continue with prophylactic antibiotic use of Clindaymycin. Change toradol to scheduled doses to help ease the pain. (3) Lactic acidosis Problem: Acute Narrative: Even though lactic acid was elevated, she has NO fevers, tachycardia, nor elevation of WBC to suggest sepsis. However, her serum blood sugar was found to be 360. she had an anion gap of 15.3. and may have had a very mild DKA. A moderate degree of lactic acidodis can occur in some pts with DKA. Will monitor V.S & CBC. (4) Potential alteration in nutrition Problem: Acute Narrative: Furnace Installer Helper consulted- Continue the consistent carb, pureed diet, glucerna TID with meals for wound healing. (5) Generalized weakness Problem: Acute Narrative: Continue with PT/OT. Encourage ambulation. (6) Diabetes type 2, uncontrolled Problem: Chronic QualifierTitle: Diabetes mellitus complication status: with neurologic complications Diabetes mellitus complication detail: with unspecified neuropathy Narrative: Was noted to be hyperglycemic initially. Will adjust SSI to low dose algorithm and cut the long acting insulin to 20 units bid instead of 46 units as her appetite is still poor. (7) Chronic pain Problem: Chronic QualifierTitle: Chronic pain type: chronic pain syndrome Qualified Code(s ): G89.4 - Chronic pain syndrome (8) GERD (gastroesophageal reflux disease) Problem: Chronic QualifierTitle: Esophagitis presence: without esophagitis Qualified Code( s): K21.9 - Gastro-esophageal reflux disease without esophagitis (9) Hyperlipemia Problem: Chronic (10) HTN (hypertension) Problem: Chronic QualifierTitle: Hypertension type: essential hypertension Qualified Code( s): I10 - Essential (primary) hypertension <Gregor Swift - Last Filed: 01/07/17 12:13> Objective - Vitals Vitals: Last Vital Signs Temp 36.4 C L 01/07/17 11:03 Pulse 64 01/07/17 11:03 Resp 16 01/07/17 11:03 BP 131/59 01/07/17 11:03 Pulse Ox 99 01/07/17 11:03 - Abnormal Lab Findings Abnormal Lab Findings: Abnormal Lab Results 01/07/17 01/07/17 Range/Units 05:00 05:00 RBC 3.84 L (4.2-5.4) M/mm3 Hgb 11.4 L (12.5-16.0) gm/dL Hct 33.5 L (37.0-47.0) % MPV 10.9 H (6.0-9.5) fl Sodium 145 H (132-142) mmol/L Plasma Sodium 144 H (130-142) mmol/L Chloride 112 H (97-106) mmol/L BUN 24 H (3-23) mg/dL BUN/Creatinine Ratio 27.0 H (9.0-21.6) Random Glucose 66 L D (70-110) mg/dL Assessment/Plan Plan Narrative: I personally directed Ellie Salinas's care for this patient. Record reviewed and patient examined. Hypernatremia and hyperkalemia today, will adjust IV fluids. Much better on oral Geodon. Vulvitis, will use nystatin cream. - Problems/Diagnosis (1) Altered mental status Problem: Acute Qualifiers: Altered mental status type: delirium Qualified Code(s): R41.0 - Disorientation, unspecified (2) Generalized weakness Problem: Acute (3) Status post tooth extraction Problem: Acute Qualifiers: Tooth loss class: unspecified tooth loss Qualified Code(s): K08.409 - Partial loss of teeth, unspecified cause, unspecified class (4) Diabetes type 2, uncontrolled Problem: Chronic Qualifiers: Diabetes mellitus complication status: with neurologic complications Diabetes mellitus complication detail: with unspecified neuropathy (5) HTN (hypertension) Problem: Chronic Qualifiers: Hypertension type: essential hypertension Qualified Code(s): I10 - Essential (primary) hypertension (6) GERD (gastroesophageal reflux disease) Problem: Chronic Qualifiers: Esophagitis presence: without esophagitis Qualified Code(s): K21.9 - Gastro -esophageal reflux disease without esophagitis (7) Candidal vulvovaginitis Problem: Acute (8) Hypernatremia Problem: Acute (9) Hyperkalemia Problem: Acute
[2017-01-07] MEDS: BRIMONIDINE TARTRATE 50 DROP BTL EACHEYE SCH ×3 (07:00→20:24)
[2017-01-07] MEDS: ZIPRASIDONE HCL 20 MG CAPSULE PO SCH ×3 (07:00→20:28)
[2017-01-07] MEDS: DOCUSATE SODIUM 100 MG CAPSULE PO SCH ×3 (07:00→20:25)
[2017-01-07] MEDS: INSULIN LISPRO 100 UNITS/ML VIAL SC SCH ×5 (07:01→20:34)
[2017-01-07] MEDS: ROSUVASTATIN CALCIUM 10 MG TABLET PO SCH ×2 (07:01→20:26)
[2017-01-07] MEDS: LISINOPRIL 5 MG TABLET PO SCH ×3 (07:01→20:28)
[2017-01-07] MEDS ORDERED: KETOROLAC TROMETHAMINE 30 MG/ML VIAL IV SCH ×2 (07:15→12:00)
[2017-01-07] MEDS: PANTOPRAZOLE SODIUM 20 MG TABLET.DR PO SCH (08:36)
[2017-01-07] MEDS: METOPROLOL SUCCINATE 50 MG TABLET.SA PO SCH (08:40)
[2017-01-07] MEDS: CLOPIDOGREL BISULFATE 75 MG TABLET PO SCH (08:42)
[2017-01-07] MEDS: SENNOSIDES 8.6 MG TABLET PO SCH (08:46)
[2017-01-07] MEDS: CHLORHEXIDINE GLUCONATE 15 ML UDC MM SCH (08:55)
[2017-01-07] MEDS: INSULIN DETEMIR 100 UNITS/ML VIAL SC SCH ×2 (08:56→18:51)
[2017-01-07] MEDS: WATER FOR INJECTION STERILE IV SCH ×2 (13:40→23:56)
[2017-01-07] MEDS: SODIUM CHLORIDE IV SCH ×2 (13:40→23:56)
[2017-01-07] MEDS: NYSTATIN 30 APPL TUBE TP SCH ×2 (13:42→20:27)
[2017-01-07] MEDS: POLYVINYL ALCOHOL 150 DROP BTL EACHEYE PRN ×2 (14:38→17:01)
[2017-01-07] MEDS: GABAPENTIN 600 MG TABLET PO SCH (16:54)
[2017-01-07] MEDS: KETOROLAC TROMETHAMINE 15 MG/ML VIAL IV SCH ×2 (18:30→23:23)
[2017-01-08] MEDS: ACETAMINOPHEN 500 MG TABLET PO PRN ×2 (00:16→08:55)
[2017-01-08] MEDS: KETOROLAC TROMETHAMINE 15 MG/ML VIAL IV SCH (05:14)
[2017-01-08 05:44] LABS: Hemoglobin 12.9 gm/dL (12.5-16.0); Mean Cell Volume 87.2 fl (78-100); Mean Corpuscular Hemoglobin 28.9 pg (27-31); Mean Corpuscular Hgb Conc 33.1 g/dl (32-36); Mean Platelet Volume 11.6 fl (6.0-9.5); Neutrophil # 3.5 K/mm3 (1.3-6.0); Neutrophil % 63.3 % (42-75.0); Platelet Count 164 K/mm3 (150-450); Red Blood Count 4.47 M/mm3 (4.2-5.4); Red Cell Distribution Width 13.7 % (11.5-14.0); White Blood Count 5.5 K/mm3 (4.0-10.5)
[2017-01-08 05:55] LABS: Anion Gap 12.4 mmol/L (6.8-13.8); BUN/Creatinine Ratio 17.3 (9.0-21.6); Calcium * 8.6 mg/dL (7.9-10.9); Carbon Dioxide 25.8 mmol/L (24-32.6); Estimated Creat Clear 45.8; Potassium 3.2 mmol/L (3.4-4.6)
[2017-01-08] MEDS: LEVOTHYROXINE SODIUM 88 MCG TABLET PO SCH (06:53)
[2017-01-08 06:58] VITALS: BP 195/80
[2017-01-08] MEDS: INSULIN LISPRO 100 UNITS/ML VIAL SC SCH (07:08)
[2017-01-08] MEDS ORDERED: POTASSIUM CHLORIDE 20 MEQ TABLET.SA PO ONE (07:15)
[2017-01-08] MEDS: ZIPRASIDONE HCL 20 MG CAPSULE PO SCH (07:32)
--- NOTE | 2017-01-08 07:53 | DS ---
(1) Encephalopathy acute Problem: Resolved (2) Elevated lactic acid level Problem: Resolved Description of Stay: ADMISSION DATE: 01.05.2017 DISCHARGE DATE: 01.08.2017 ADMISSION HPI: Mrs Arriaza is a 71-yr-old W[place] pt of Dr. Aimee Medina with a PMH of: Angina at rest, Chronic Pain Syndrome, DM II, Glaucoma, HLD, IBS, FL & Osteoporosis. History is unobtainable from pt due to AMS. She is curled up on the stretcher and when asked any questions, she repeatedly answers, "cold! cold!." I reached the pt's , Addison, by phone and he was able to relay pt's sickness events that led to coming to the ED tonight. He states that pt, was seen by the Dentist at the [facility] on 01/03/17 for a planned teeth extraction. A referral had been made by Dr. An for the remaining teeth to be extracted due to poor/non- restorable dentition, with the plan to replace with complete dentures. On the evening of , he gave her the prescribed Tramadol for pain. He is unsure if she was started on any prophylactic antibiotic. Then on morning hours of 01/04/17, he gave her another Tramadol for pain. Later, he noticed that the pt was acting confused. But, he is uncertain if the confusion began before or after Tramadol administration. He reports that as the day progressed, the confusion got worse. She could not tell where their bedroom was after using the toilet. Addison says that she was also saying " silly things." She also could not eat or drink anything and did not take any other medications during the day. He states that he attempted to help her out of bed to bring her to the hospital, but pt could not follow commands to move or stand up. He then chose to call the EMS and she was brought to [facility] ER. During evaluation at the ED, pt got agitated easily and would not cooperate with treatment cares. A CT of the head did not have any acute findings. The CXR, hematology & chemistry labs, and UA were all also unremarkable. Pt remained in somnolence at the time of exam and would yell with any external stimuli. She will be admitted under observation status due to mental Status changes. HOSPITAL COURSE: Unclear etiology of the patient's acute encephalopathy. I spoke with the oral surgeon at the [facility] that performed the patient's surgery the day prior to admission. He states that no sedation was given during her procedure other than local marcaine. She did not get any IV pain medications, IV anesthesia or even any inhaled nitrous oxide. He is unable to provide any insight into the etiology of the patient's AMS. The patient was sent home with a script for Tramadol which may be the cause for the AMS but it is not clear whether or not the patient even took any of this medication. The bruising that the patient has is expected per the oral surgeon, as she is on Plavix which was not discontinued perioperatively secondary to recent cardiac stent placement. Head CT in ED unremarkable for acute findings. Cultures negative with no other overwhelming signs of infection. During her admission, her mental status eventually improved and on the day of discharge, she was back to baseline. FOLLOW-UP APPOINTMENTS: PCP, Dr. Medina, within 1-2 weeks. Check BMP at follow-up visit. NEW OR CHANGED MEDICATIONS: Lisinopril 10mg PO BID (increased from 5mg BID) Nystatin cream PRN DISCONTINUED MEDICATIONS: None Procedures Performed: none Discharge Disposition: Home self care Disposition: Home self-care Condition: Stable Discharge Activity: Activity as tolerated Discharge Diet: Consistent carbs, Resume usual diet Referrals: Aimee Medina DO [Primary Care Provider] - Problem Oriented Discharge Instructions to Patient/Family: Confusion Additional Patient Instructions (free text): Follow-up with Dr. Medina within 1-2 weeks. Check BMP at follow-up visit. 01/18 at 11:00 Prescriptions (Any new or edited meds): Lisinopril [Zestril] 10 mg PO BID #60 tablet Nystatin [Mycostatin Cream] 1 appl TP BID PRN #1 tube PRN Reason: Rash Complete Home Medications List: Complete Home Medication List: Aspirin [Aspirin EC] 81 mg PO DAILY 01/25/16 Clopidogrel Bisulfate [Plavix] 75 mg PO DAILY 01/25/16 Nitroglycerin 0.4 mg SL Q5MIN 01/25/16 Sennosides [Senna-Extra] 17.2 mg PO DAILY 01/25/16 traMADol HCL [Ultram] 100 mg PO QID PRN 01/25/16 Atorvastatin Calcium [Lipitor] 80 mg PO HS tablet 01/28/16 Insulin Lispro [Humalog] 0 - 24 units SQ ACHS #1 vial 01/28/16 Brimonidine Tartrate [Brimonidine 0.2% Ophthalmic Solution] 1 drop EACHEYE BID 06/14/16 Gabapentin [Neurontin] 600 mg PO TID 06/14/16 Insulin Detemir [Levemir] 36 units SC BID 06/14/16 Levothyroxine Sodium [Synthroid] 88 mcg PO DAILY 06/14/16 Oxybutynin Chloride [Ditropan] 5 mg PO TID 06/14/16 Chlorhexidine Gluconate [Periogard Oral Rinse 0.12%] 10 ml MM DAILY 01/05/17 Docusate Sodium [Colace] 100 mg PO BID 01/05/17 Fexofenadine HCl 180 mg PO BID 01/05/17 Furosemide [Lasix] 40 mg PO DAILY 01/05/17 Metoprolol Succinate 50 mg PO DAILY 01/05/17 Oxybutynin Chloride [Ditropan Xl] 10 mg PO DAILY 01/05/17 Pantoprazole Sodium [Protonix] 20 mg PO DAILY 01/05/17 Polyvinyl Alcohol [Artificial Tears] 1 drop OP DAILY PRN 01/05/17 Potassium Chloride [K-Dur] 20 meq PO DAILY 01/05/17 Ranolazine [Ranexa] 500 mg PO BID 01/05/17 Lisinopril [Zestril] 10 mg PO BID #60 tablet 01/08/17 Nystatin [Mycostatin Cream] 1 appl TP BID PRN #1 tube 01/08/17
[2017-01-08] MEDS: BRIMONIDINE TARTRATE 50 DROP BTL EACHEYE SCH (08:21)
[2017-01-08] MEDS: DOCUSATE SODIUM 100 MG CAPSULE PO SCH (08:22)
[2017-01-08] MEDS: NYSTATIN 30 APPL TUBE TP SCH (08:23)
[2017-01-08] MEDS: GABAPENTIN 600 MG TABLET PO SCH (08:25)
[2017-01-08] MEDS: CHLORHEXIDINE GLUCONATE 15 ML UDC MM SCH (08:27)
[2017-01-08] MEDS: PANTOPRAZOLE SODIUM 20 MG TABLET.DR PO SCH (08:28)
[2017-01-08] MEDS: SENNOSIDES 8.6 MG TABLET PO SCH (08:28)
[2017-01-08] MEDS: METOPROLOL SUCCINATE 50 MG TABLET.SA PO SCH (08:29)
[2017-01-08] MEDS: INSULIN DETEMIR 100 UNITS/ML VIAL SC SCH (08:50)
[2017-01-08] MEDS: CLOPIDOGREL BISULFATE 75 MG TABLET PO SCH (08:53)
[2017-01-08] MEDS ORDERED: LISINOPRIL 10 MG TABLET PO SCH (09:00)
== END 2017-01-08 10:53 | disposition home or self-care (01) | DRG 72 ==
LOC: ER 23:29 → MS 01-05 01:54 → OBSVTOIN 01-05 01:54
PROVIDERS: ADMIT Nurse Practitioner; ATTEND Internal Medicine
DX: G93.40 Encephalopathy, unspecified (principal); E11.40 Type 2 diabetes mellitus with diabetic neuropathy, unspecified; E11.65 Type 2 diabetes mellitus with hyperglycemia; K08.409 Partial loss of teeth, unspecified cause, unspecified class; R53.1 Weakness; G89.4 Chronic pain syndrome; I10 Essential (primary) hypertension; E78.5 Hyperlipidemia, unspecified; Z79.4 Long term (current) use of insulin; Z79.82 Long term (current) use of aspirin

== ENCOUNTER 2017-01-16 22:47 | Emergency (ER) | payer MEDICARE, BC ==
[2017-01-16] MEDS ORDERED: ASPIRIN 81 MG TAB.CHEW ONE (22:55)
[2017-01-16] MEDS ORDERED: ASPIRIN 81 MG TAB.CHEW PO ONE (22:59)
[2017-01-16] MEDS ORDERED: NITROGLYCERIN 0.4 MG/TAB BTL SL ONE (23:00)
[2017-01-16] MEDS ORDERED: SUCRALFATE 1 G/10 ML UDC PO ONE (23:09)
[2017-01-16] MEDS ORDERED: MAG HYDROX/ALUMINUM HYD/SIMETH 30 ML UDC PO ONE (23:09)
[2017-01-16] MEDS ORDERED: LIDOCAINE HCL 20 ML UDC PO ONE (23:09)
[2017-01-16] MEDS ORDERED: ONDANSETRON HCL/PF 2 MG/ML VIAL IV ONE (23:15)
[2017-01-16] MEDS ORDERED: ONDANSETRON HCL/PF 2 MG/ML VIAL ONE (23:16)
--- OUTSIDE RECORDS SUMMARY | 2017-01-16 23:18 | XMS REPORT | Continuity of Care Document ---
:1945 Author Organization [facility] ([facility]) Address [address] [place] [address] Phone [phone] Care Team Providers Name Role Phone Aimee Medina Primary Care Provider [phone] Source Comments This disclosure is being made pursuant to the Care Everywhere program, applicable federal and state laws, and may not contain all informaitonavailable regarding this patient.[facility] ([facility]) Active Allergies and Adverse Reactions Allergen Noted Date Severity Reactions Comments Clidinium 04/26/2016 Unknown Codeine Urticaria (Hives),Pruritus,Unknown Escitalopram 04/26/2016 Unknown Hydrocodone-Acetaminophen 07/29/2012 OTHER Hydromorphone 04/26/2016 Hallucinations Latex, Natural Rubber Urticaria (Hives),Pruritus,Unknown Povidone-Iodine Unknown Current Medications Prescription Sig. Disp. Refills Start End Date Status Date gabapentin 600 mg Take 900 mg by Active tablet mouth 3 times daily ATORVASTATIN 80 mg Take 80 mg by 5 Active tablet mouth daily 5 levothyroxine 88 Take 88 mcg by Active mcg tablet mouth every morning before breakfast aspirin 81 mg EC Take 1 tablet (81 90 tablet Active tablet mg total) by mouth 6 daily clopidogrel 75 mg Take 1 tablet (75 90 tablet 4 Active tablet mg total) by mouth [address] 1 tablet 25 tablet Active mg SL tablet (0.4 mg total) 6 under the tongue every 5 minutes as needed for Chest pain brimonidine 0.2 % Instill 1 Drop Active ophthalmic onto both eyes 6 solution every 12 hours. pantoprazole 20 mg Take 1 tablet (20 30 tablet 5 Active EC tablet mg total) by mouth 6 daily. metoPROLol Take 2 tablets (50 30 tablet 11 Active succinate 25 mg XL mg total) by mouth 6 tablet daily. artificial tears Instill 1 Drop 30 Each 0 Active (REFRESH PLUS) 0.5 onto both eyes as 6 % ophthalmic needed for Dry dropperette eyes. insulin glargine Inject 15 Units 10 mL 0 Active (LanTUS) 100 subcutaneously at 6 unit/mL injection bedtime. vial insulin lispro Inject 5-13 Units 20 mL 0 Active (HumaLOG) 100 subcutaneously 3 6 unit/mL injection times daily before vial meals. Breakfast 5 units, lunch 6 units, supper 8 units. SSI 1:50 for glucose >150 docusate 100 mg Take 1 capsule 60 capsule 0 Active capsule (100 mg total) by 6 mouth 2 times daily as needed for Constipation. sennosides 8.6 mg Take 1-2 tablets 30 tablet 0 Active tablet (8.6-17.2 mg 6 total) by mouth 2 times daily as needed for Constipation. traMADol 50 mg Take 1-2 tablets 20 tablet 0 Active tablet (50-100 mg total) 6 by mouth every 6 hours as needed for Pain. chlorhexidine 0.12 Rinse with 10 ML 473 mL 0 Active % oral rinse for 30 seconds 6 twice daily for 10 days. Swish and spit out excess. Nothing by mouth for 30 minutes. oxybutynin 5 mg Take 5 mg by mouth Active tablet 3 times daily. 6 potassium chloride Take 20 mEq by 0 Active 20 mEq tablet mouth daily. with 6 food furosemide 20 mg 1 tablet (20 mg 90 tablet 3 Active tablet total) daily. Take 7 2 tablets daily for 2 days, then decrease to 1 tab daily. amoxicillin PO Take 500 mg by Active mouth 3 times daily. chlorhexidine 0.12 Rinse with 10 ML 473 mL 0 Active % oral rinse for 30 seconds 7 twice daily for 10 days. Swish and spit out excess. Nothing by mouth for 30 minutes. traMADol 50 mg Take 1-2 tablets 20 tablet 0 Active tablet (50-100 mg total) 7 by mouth every 6 hours as needed for Pain. RANEXA 500 mg XR Take 1 tablet (500 60 tablet 11 Active tablet mg total) by mouth 7 2 times daily. RANEXA 500 mg XR Take 500 mg by 11 01/05/20 Discontinued tablet mouth 2 times 6 17 daily. amoxicillin 500 mg Take 1 capsule 21 capsule 0 01/11/20 capsule (500 mg total) by 7 17 mouth 3 times daily for 7 days. until gone. Active Problems Problem Noted Date Dental caries [...] initial 2014 episode of care CAD in rampart artery 11/09/2015 Overview: Inferior ND & PCI dRCA, 3.0 x 16 mm, [...] Encounters Date Type Specialty Providers Description 01/04/2017 Refill Cardiac Rehabilitation Teresa Urbano Dx: Coronary S, DO artery disease involving rampart coronary artery of rampart heart without angina pectoris (Primary Dx) 01/03/2017 Office Visit Heart and Vascular Teresa Urbano Dx: Benign S, DO essential HTN (Primary Dx) 01/03/2017 Office Visit Dentistry Juan Barlow, Dx: Pain (Primary DDS Dx) 01/03/2017 Office Visit Dentistry Juan Barlow, Dx: Diabetes DDS (Primary Dx) 01/02/2017 Telephone [...] S, DO Patient Reported Reason For Visit Social History Tobacco Use Types Packs/Day Years Used Date Former Smoker Cigarettes 1 20 Quit: 01/03/1985 Smokeless Tobacco: Never Used Alcohol Use Drinks/Week oz/Week Comments No Last Filed Vital Signs Vital Sign Reading Time Taken Blood Pressure 116/57 01/03/2017 8:18 AM IGNITION SPECIALIST Pulse 71 01/03/2017 8:18 AM IGNITION SPECIALIST Temperature 36.8 C (98.2 F) 01/03/2017 8:18 AM IGNITION SPECIALIST Respiratory Rate 18 2016 7:21 AM CDT Height 1.676 m (5' 6") 11/22/2016 11:40 AM IGNITION SPECIALIST Weight 73.029 kg (161 lb) 11/22/2016 11:40 AM IGNITION SPECIALIST Body Mass Index 26 11/22/2016 11:40 AM IGNITION SPECIALIST Oxygen Saturation 97% 2016 7:21 AM CDT Plan of Care Date Type Specialty Providers Description 01/29/2017 Appointment Dentistry Atif Ivy DDS Chief Comp: Patient [address] [place] [address] [phone] (Fax) Health Maintenance Due Date Last Done [...] Date/Time Associated Comments Diagnosis ABSTRACTED BY Routine 01/10/2017 10:00 AM Pain Results for this BILLING STAFF IGNITION SPECIALIST procedure are in the results section. ABSTRACTED BY Routine 10/23/2016 9:00 AM Dental caries Results for this BILLING STAFF IGNITION SPECIALIST procedure are in the results section. Results from Last 3 Months DENTOALVEOLAR SURGERY (01/10/2017 10:00 AM) Juan Huitron DDS 01/10/2017 10:00 AM Full Mouth Tooth Extraction Procedure Note [...] # 22, 27 (D7210 x 2), Alveoloplasty LR,LL (D7310 x 2) Consent Obtained: The risks, benefits, indications, potential complications, and alternatives were explained to the patient and informed consent obtained. Description of Operation/Procedure: The [facility] extractions.The medical history [...] BEDSIDE (01/03/2017 8:39 AM)Only the most recent of2 resultswithin the time period is included. Component [...] of Operation/Procedure: The patient presented to the [facility] for tooth extraction.The medical history was [...]
--- NOTE | 2017-01-16 23:26 | ERNOTE ---
Chest Pain/Cardiac HPI Chief Complaint: Chest Pain Time Seen by Provider: 01/16/17 23:10 Source: patient, family Exam Limitations: no limitations Immunizations: IMMUNIZATION HX Immunizations Up to Date No History of Influenza Vaccine Yes Hx Pneumococcal Vaccination Yes Allergies/Adverse Reactions: Allergies clidinium [Clidinium] Allergy (Unknown, Verified 01/05/17 03:52) codeine [Codeine] Allergy (Unknown, Verified 01/05/17 03:52) escitalopram Allergy (Unknown, Verified 01/05/17 03:52) latex Allergy (Unknown, Verified 01/05/17 03:52) hydromorphone HCl [From Dilaudid] Allergy (Verified 01/05/17 03:52) opoid Adverse Reaction (Severe, Uncoded 01/05/17 03:52) Home Medications: HOME MEDICATIONS Aspirin [Aspirin EC] 81 mg PO DAILY 01/25/16 [Last Taken Unknown] Clopidogrel Bisulfate [Plavix] 75 mg PO DAILY 01/25/16 [Last Taken Unknown] Nitroglycerin 0.4 mg SL Q5MIN 01/25/16 [Last Taken Unknown] Sennosides [Senna-Extra] 17.2 mg PO DAILY 01/25/16 [Last Taken Unknown] traMADol HCL [Ultram] 100 mg PO QID PRN 01/25/16 [Last Taken Unknown] Atorvastatin Calcium [Lipitor] 80 mg PO HS tablet 01/28/16 [Last Taken Unknown] Insulin Lispro [Humalog] 0 - 24 units SQ ACHS #1 vial 01/28/16 [Last Taken Unknown] Brimonidine Tartrate [Brimonidine 0.2% Ophthalmic Solution] 1 drop EACHEYE BID 06/14/16 [Last Taken Unknown] Gabapentin [Neurontin] 600 mg PO TID 06/14/16 [Last Taken Unknown] Insulin Detemir [Levemir] 36 units SC BID 06/14/16 [Last Taken Unknown] Levothyroxine Sodium [Synthroid] 88 mcg PO DAILY 06/14/16 [Last Taken Unknown] Oxybutynin Chloride [Ditropan] 5 mg PO TID 06/14/16 [Last Taken Unknown] Chlorhexidine Gluconate [Periogard Oral Rinse 0.12%] 10 ml MM DAILY 01/05/17 [ Last Taken Unknown] Docusate Sodium [Colace] 100 mg PO BID 01/05/17 [Last Taken Unknown] Fexofenadine HCl 180 mg PO BID 01/05/17 [Last Taken Unknown] Furosemide [Lasix] 40 mg PO DAILY 01/05/17 [Last Taken Unknown] Metoprolol Succinate 50 mg PO DAILY 01/05/17 [Last Taken Unknown] Oxybutynin Chloride [Ditropan Xl] 10 mg PO DAILY 01/05/17 [Last Taken Unknown] Pantoprazole Sodium [Protonix] 20 mg PO DAILY 01/05/17 [Last Taken Unknown] Polyvinyl Alcohol [Artificial Tears] 1 drop OP DAILY PRN 01/05/17 [Last Taken Unknown] Potassium Chloride [K-Dur] 20 meq PO DAILY 01/05/17 [Last Taken Unknown] Ranolazine [Ranexa] 500 mg PO BID 01/05/17 [Last Taken Unknown] Lisinopril [Zestril] 10 mg PO BID #60 tablet 01/08/17 [Last Taken Unknown] Nystatin [Mycostatin Cream] 1 appl TP BID PRN #1 tube 01/08/17 [Last Taken Unknown] Narrative: 5 hours SIZE MIXER, Pt had sudden onset of chest pain while eating that was severe and radiated to her left jaw. Pt tried a nitro at home which didn't help. Timing: constant Severity/Quality: moderate, severe Location: central Chest Pain Radiation: jaw Activities at Onset: other - eating Modifying Factors - Improves: Present: nothing Nitro Today/Relief: 0.4 mg x 1 Aspirin Treatment Today: 81 mg x 1 Associated Symptoms: Present: nausea. Absent: shortness of breath, diaphoresis Prior Chest Pain/Cardiac Workup: Reports: prior chest pain, heart attack Review of Systems - Review of Systems Constitutional: Absent: recent illness EYE: Present: no symptoms reported ENT: Present: no symptoms reported Respiratory: Absent: shortness of breath Cardiology: Present: See HPI Gastrointestinal/Abdominal: Present: vomiting - frequently without other symptoms, other - difficulty swallowing at times Genitourinary: Present: no symptoms reported Musculoskeletal: Present: no symptoms reported Skin: Present: no symptoms reported Neurological: Present: no symptoms reported Endocrine: Present: no symptoms reported Hematologic/Lymphatic: Present: no symptoms reported Psych: Present: no symptoms reported - Patient's Past Medical History Patient History - Medical: Diabetes Type 2 Insulin Dependent, Fibromyalgia, Glaucoma, Hypothyroidism, Osteoarthritis, Osteoporosis, UTI'S, Other Patient History - Cardiac/Respiratory: Arrhythmias, CHF, Hyperlipidemia, Myocardial Infarction, Pneumonia Patient History - Cancer: No Hx of Cancer Patient History - Surgical Procedures: Back Surgery, Colonoscopy, Cardiac stent , EGD, Hysterectomy, Tubal Ligation, Other Patient History - Other: None - Family History Mother Family History - Medical: Father Family History - Medical: - Social History Living Situations: spouse Abuse History: No History of abuse Psych History: No pertinent hx Does anyone smoke in the home?: No Smoking Status: Former smoker Have you smoked in the past 12 months: No Do you dip or chew tobacco: No Patient requests Smoking Cessation Consult: No Initiate information on Smoking Cessation: No Alcohol Use: none Drug Use: none - Immunizations Immunizations Up to Date: No Hx Pneumococcal Vaccination: Yes History of Influenza Vaccine: Yes Physical Exam - Physical Exam General Appearance: Present: wd/wn, alert, mild distress Eye Exam: Normal inspection: bilateral Ears, Nose, Throat: Present: normal ENT inspection Neck: Present: normal inspection Respiratory: Present: no respiratory distress, normal breath sounds, no accessory muscle use, chest nontender, lungs clear Cardiovascular/Chest: Present: regular rate, rhythm, no murmur, normal peripheral pulses Gastrointestinal/Abdominal: Present: normal bowel sounds, nondistended, soft Back Exam: Present: normal inspection Extremity Exam: Present: normal inspection, non-tender, no edema Neurological Exam: Present: alert, oriented, normal mood/affect, no motor/ sensory deficits Skin Exam: Present: normal color, warm/dry ED Progress - Results and Orders Patient's Lab Results:: I have reviewed the patient's lab results. Results and Orders: Laboratory Tests 01/16/17 01/16/17 23:26 23:26 WBC 7.8 Hgb 11.7 L Hct 34.7 L Plt Count 180 Sodium 144 H Potassium 4.4 D Chloride 107 H Carbon Dioxide 29.0 Anion Gap 12.4 BUN 13 Creatinine 1.13 Est GFR (Non-Af Amer) 50 L BUN/Creatinine Ratio 11.5 Random Glucose 157 H Calcium 8.4 Calcium Adj for Albumin 9.1 Total Bilirubin 0.3 AST 18 ALT 26 Alkaline Phosphatase 79 Troponin I Less than 0.017 Total Protein 5.7 L Albumin 2.7 L Amylase 10 L Lipase 36 L - Vital Signs Patient's Vital Signs:: I have reviewed the patient's vital signs. Vital Signs: Vital Signs 01/16/17 01/16/17 01/16/17 22:53 23:04 23:07 Temperature 36.0 C L Pulse Rate 69 74 77 Respiratory 15 16 Rate Blood Pressure 154/133 115/53 O2 Sat by Pulse 93 Oximetry - EKG EKG: NSR, RBBB, other - left posterior fascicular block EKG read: Interp. by me EKG Comments: No acute changes - Progress/Reassessment Chief Complaint: Chest Pain Progress:: Pain free at discharge Progress Note-Subjective: 01/17/17 00:15 pt is pain free after GI coctail. Discussed possibility of esophageal spasm. Pt says she occasionally takes nexium. I encouraged her to take it regularly. She as an appointment with her PCP Dr Medina in 2 days. Departure - Departure Clinical Impression: Esophageal spasm Disposition: Home Follow Up Needed Condition: Good Instructions: Esophageal Spasm Additional Instructions: Take nexium daily. Talk to Dr. Medina about your symptoms today and if she thinks you might need and EGD (scope into your stomach). Return to ER as needed Referrals: Aimee Medina DO [Primary Care Provider] -
[2017-01-16 23:32] LABS: Hematocrit 34.7 % (37.0-47.0); Hemoglobin 11.7 gm/dL (12.5-16.0); Mean Cell Volume 87.4 fl (78-100); Mean Corpuscular Hemoglobin 29.5 pg (27-31); Mean Corpuscular Hgb Conc 33.7 g/dl (32-36); Mean Platelet Volume 11.5 fl (6.0-9.5); Neutrophil # 5.3 K/mm3 (1.3-6.0); Neutrophil % 68.6 % (42-75.0); Platelet Count 180 K/mm3 (150-450); Red Blood Count 3.97 M/mm3 (4.2-5.4); Red Cell Distribution Width 13.3 % (11.5-14.0); White Blood Count 7.8 K/mm3 (4.0-10.5)
[2017-01-16 23:50] LABS: ALT 26 U/L (19-67); AST 18 U/L (0-48); Albumin * 2.7 gm/dl (3.4-5.0); Alkaline Phosphatase * 79 U/L (50-170); Amylase * 10 U/L (25-115); Anion Gap 12.4 mmol/L (6.8-13.8); BUN/Creatinine Ratio 11.5 (9.0-21.6); Bilirubin, Total 0.3 mg/dL (0.0-1.1); Blood Urea Nitrogen 13 mg/dL (3-23); Ca. Corrected For Albumin 9.1 mg/dL (8.4-10.2); Calcium * 8.4 mg/dL (7.9-10.9); Chloride 107 mmol/L (97-106); Glucose * 157 mg/dL (70-110); Lipase 36 U/L (73-393); Potassium 4.4 mmol/L (3.4-4.6); Sodium 144 mmol/L (132-142); Total Protein 5.7 gm/dL (6.2-8.2); Troponin I Less than 0.017 ng/ml (0.00-0.10)
[2017-01-17 00:28] VITALS: BP 119/53
== END 2017-01-17 00:35 | disposition home or self-care (01) ==
LOC: ER 22:47
DX: K22.4 Dyskinesia of esophagus (principal)

== ENCOUNTER 2017-05-09 11:45 | Day surgery (SDC) | payer MEDICARE, BC ==
[~2017-05-09 11:45] MED LIST: NORMAL SALINE 1,000 ML IV PRN
[2017-05-09] MEDS ORDERED: RINGERS SOLUTION,LACTATED 1,000 ML IV ONE (12:40)
[2017-05-09] MEDS ORDERED: ceFAZolin SODIUM 1 GM VIAL IV ONE ×2 (13:00→13:15)
[2017-05-09] MEDS ORDERED: IOPAMIDOL 100 ML INFUS..BTL IJ ONE (13:10)
--- NOTE | 2017-05-09 13:33 | OR ---
Operative Report - Dictated Report Narrative: Location: Main OR Anesthesia: Mac anesthesia Surgeon: Dr. Mckeon Preoperative diagnosis: Persistent urinary abnormalities including hematuria Postoperative diagnosis: Right lateral wall large bladder tumor and smaller tumor on posterior wall. Normal left retrograde. Inability to identify right ureter Procedure: #1 Cystoscopy with platter washing for cytology and culture and left retrograde pyelograms Indications: 71-year-old diabetic female with history of coronary artery disease and multiple prior stents last stent July 2016 on Plavix with persistent urinary abnormalities and hematuria. CT 2016 with contrast was normal in FM. Above-mentioned procedure was indicated to assess bladder for potential cause of the abnormalities Description: Consent obtained. Patient brought to the operating room where general endotracheal anesthesia was induced. Placed in the dorsal lithotomy position. Prepped and draped. Timeout taken. Rigid cystoscope introduced into the bladder with ease. There was some debris. Bladder was rinsed and a washing was obtained sent for cytology and culture. On the right lateral wall is a large exophytic tumor. Right ureter not visible. Appearance is classic for TCC. Appears to be on a stalk. It is near the obturator on the right. There is a second tumor identified on the posterior wall that was smaller. Left ureter was visible. Right ureter was under the tumor I did not want to risk bleeding with the Plavix. Left retrograde obtained and interpreted by Dr. Maldonado. Left ureter identified intubated with 5 [place] catheter and left retrograde obtained. 5-7 mL of Isovue was injected. Distal, mid and proximal ureter delicate without filling defects or hydronephrosis. Proximal collecting system nonhydronephrotic, delicate calyces, no filling defects. Essentially normal retrograde. Prompt drainage upon removal of catheter. Washing for cytology and culture. 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 Large bulky tumor on right lateral wall. Normal left retrograde. Inability to find right ureter. Follow-up: Need to have patient be evaluated by cardiology for general anesthesia. More importantly would like to proceed with this surgery without Plavix on board however she had stent in July so need guidance/ clarification from cardiology. Worst case scenario I would stop the Plavix for 3 days perform the surgery on day for that way I can assess for degree of bleeding and not be fully off Plavix. Also diabetic. CT urogram was last year so I need to repeat one prior to surgery to assess outside of bladder and right upper tract.
--- NOTE | 2017-05-09 14:09 | PATH ---
PHYSICIAN: Mike Maldonado MD LAB#: [id number] SPECIMEN DATE: 05/09/2017 SPECIMEN: Bladder washings for cytology CLINICAL INFORMATION: Hematuria. Rigid cystoscopy with retrograde. Operative report: A large exophytic tumor on right lateral wall appearance is classic for TCC. There is a smaller tumor on the posterior wall. GROSS DESCRIPTION: The specimen is received in a urine container appropriately designated, "bladder washings for cytology." The specimen consists of 95 mL of slightly cloudy urine with fixative added. Specimen is processed for cytospin' s and cytologic examination. DIAGNOSIS: URINE, WASHINGS OBTAINED DURING CYSTOSCOPY, CYTOLOGIC EXAMINATION: -ABNORMAL CYTOLOGIC FINDINGS COMMENT: Some atypical urothelial cells arranged singly and in clusters, few reactive urothelial cells, few reactive clusters of urothelial cells due to instrumentation, some benign urothelial cells, few squamous cells, many PMNs, some histiocytes, some RBCs and scant proteinaceous debris. Cytologic findings are correlated with the gross findings seen on cystoscopy and a high-grade malignant process cannot be confirmed. Low-grade TCC does not produce malignant urine cytologic findings. A histologic biopsy of the identified lesions would be necessary to establish a pathologic diagnosis. The findings are communicated to Dr. Maldonado by fax on 05/10/2017.
[2017-05-09 14:31] VITALS: BP 121/64
== END 2017-05-09 11:46 | disposition home or self-care (01) ==
LOC: AMB 11:45
PROVIDERS: ATTEND Urology
PROC: 3E1K88X Irrigation of Genitourinary Tract using Irrigating Substance, Via Natural or Artificial Opening Endoscopic, Diagnostic (ICD-10-PCS; 2017-05-09)
PROC: BT1FZZZ Fluoroscopy of Left Kidney, Ureter and Bladder (ICD-10-PCS; principal; 2017-05-09 13:10)
DX: D49.4 Neoplasm of unspecified behavior of bladder (principal); R31.9 Hematuria, unspecified; E11.9 Type 2 diabetes mellitus without complications; I25.10 Atherosclerotic heart disease of native coronary artery without angina pectoris; E03.9 Hypothyroidism, unspecified; M19.90 Unspecified osteoarthritis, unspecified site; M81.0 Age-related osteoporosis without current pathological fracture; Z87.891 Personal history of nicotine dependence; Z68.23 Body mass index [BMI] 23.0-23.9, adult

== ENCOUNTER 2017-06-20 14:41 | Inpatient (IN) | payer MEDICARE, BC ==
[2017-06-20] MEDS ORDERED: NORMAL SALINE 1,000 ML IV ONE (15:14)
--- NOTE | 2017-06-20 15:19 | ERNOTE ---
Abdominal HPI - General Chief Complaint: Abdominal Pain Time Seen by Provider: 06/20/17 15:08 Source: patient, family Exam Limitations: clinical condition - Immun/Allergies/Home Medications Immunizatons: IMMUNIZATION HX Immunizations Up to Date No History of Influenza Vaccine Yes Hx Pneumococcal Vaccination Yes Allergies/Adverse Reactions: Allergies hydromorphone HCl [From Dilaudid] Allergy (Intermediate, Verified 05/09/17 12:34 ) Other Altered mental status codeine [Codeine] Allergy (Mild, Verified 05/09/17 12:34) Itching latex Allergy (Mild, Verified 05/09/17 12:34) Other Blisters clidinium [Clidinium] Allergy (Unknown, Verified 05/09/17 12:34) escitalopram Allergy (Unknown, Verified 05/09/17 12:34) opoid Adverse Reaction (Severe, Uncoded 05/09/17 12:34) Other Altered mental status Home Medications: HOME MEDICATIONS Aspirin [Aspirin EC] 81 mg PO DAILY 01/25/16 [Last Taken 05/08/17] Nitroglycerin 0.4 mg SL [id number] PRN 01/25/16 [Last Taken 05/08/17] traMADol HCL [Ultram] 50 mg PO Q12H PRN 01/25/16 [Last Taken 05/08/17] Atorvastatin Calcium [Lipitor] 80 mg PO HS tablet 01/28/16 [Last Taken 05/08/17 ] Brimonidine Tartrate [Brimonidine 0.2% Ophthalmic Solution] 1 drop EACHEYE DAILY 06/14/16 [Last Taken 05/08/17] Gabapentin [Neurontin] 600 mg PO DAILY 06/14/16 [Last Taken 05/08/17] Insulin Detemir [Levemir] 30 units SC HS 06/14/16 [Last Taken 05/08/17] Levothyroxine Sodium [Synthroid] 88 mcg PO DAILY 06/14/16 [Last Taken 05/08/17] Oxybutynin Chloride [Ditropan] 5 mg PO DAILY 06/14/16 [Last Taken 05/08/17] Ranolazine [Ranexa] 500 mg PO BID 01/05/17 [Last Taken 05/08/17] Metoprolol Succinate [Toprol Xl] 12.5 mg PO BID 05/01/17 [Last Taken 05/08/17 18 :00] Nitrofurantoin/Nitrofuran Mac [Macrobid] 100 mg PO Q12H 06/20/17 [Last Taken Unknown] - History of Present Illness Narrative: reports that patient had had intermittent vomiting for 8-9 months. She vomits a couple times a week, sometimes goes a couple of weeks without it. This time she has vomited for a couple of days, also complains of abdominal pain. Per her she is getting increasingly confused over about the same time frame. Unable to obtain details of history from patient, complaints of being cold. Review of Systems - Narrative Narrative: unable to obtain details - Patient's Past Medical History Patient History - Medical: Chronic Pain, Diabetes Type 2, Fibromyalgia, Hypothyroidism, Osteoarthritis, Osteoporosis, Other Patient History - Cardiac/Respiratory: Coronary Heart Disease, Myocardial Infarction Patient History - Cancer: No Hx of Cancer Patient History - Surgical Procedures: Cardiac stent, Hysterectomy, Tubal Ligation, Other, Hernia Repair Patient History - Other: None - Family History Mother Family History - Medical: , Diabetes Type 2 Family History - Cardiac/Respiratory: No pertinent hx Family History - Cancer: No pertinent family hx Father Family History - Medical: , Diabetes Type 2 Family History - Cardiac/Respiratory: No pertinent hx Family History - Cancer: No pertinent family hx Sister Family History - Medical: Diabetes Type 2 Family History - Cardiac/Respiratory: No pertinent hx Family History - Cancer: No pertinent family hx Brother Family History - Medical: No pertinent hx Family History - Cardiac/Respiratory: No pertinent hx Family History - Cancer: Melanoma - Social History Living Situations: spouse Abuse History: No History of abuse Psych History: No pertinent hx Does anyone smoke in the home?: No Have you smoked in the past 12 months: No Alcohol Use: none Drug Use: none - Immunizations Immunizations Up to Date: No Hx Pneumococcal Vaccination: Yes History of Influenza Vaccine: Yes Physical Exam - Physical Exam General Appearance: Present: wd/wn, alert, no apparent distress, anxious Head Exam: Present: normal inspection Eye Exam: Normal inspection: bilateral, PERRL: bilateral Ears, Nose, Throat: Present: normal ENT inspection, dry mucous membranes Respiratory: Present: no respiratory distress, normal breath sounds, no accessory muscle use, lungs clear Cardiovascular/Chest: Present: regular rate, rhythm, no murmur Gastrointestinal/Abdominal: Present: normal bowel sounds, nondistended, soft, tenderness - mild throughout Extremity Exam: Present: no edema Neurological Exam: Present: alert, no motor/sensory deficits - moves all extremities, face symmetric, equal director design, limited exam due to limited cooperation , other - patient is oriented to person, when asked about location she repeats her name again, follows some commands, repeatedly states that she is cold Skin Exam: Present: normal color, warm/dry ED Progress - Results and Orders Patient's Lab Results:: I have reviewed the patient's lab results. - Vital Signs Patient's Vital Signs:: I have reviewed the patient's vital signs. Vital Signs: Vital Signs 06/20/17 14:42 Temperature 37.2 C Pulse Rate 77 Respiratory 17 Rate Blood Pressure 225/100 O2 Sat by Pulse 100 Oximetry - EKG EKG: NSR, RBBB, unchanged from - 01/2017, other - no acute changes EKG read: Interp. by me - X-Ray X-Ray #1 X-Ray: abdomen - moderate amount of stool, no acute changes Interpretation: Reviewed by me - CT/Ultrasound CT/Ultrasound Narrative: CT head: no acute changes - Progress/Reassessment Chief Complaint: Abdominal Pain Progress Note-Subjective: 06/20/17 16:32 reviewed patient's prior chart, was admitted in 12/2016 for encephalopathy of unclear origin, she seemed to have similar symptoms then compared to now. patient also had a recurrent bladder tumor per , had cystoscopy 05/09/17 06/20/17 16:48 blood pressure continues in the 190's 06/20/17 17:20 patient alert, oriented to person and place, states that she feels fine, denies headache, denies feeling cold, tolerating sips of water 06/20/17 18:05 patient still intermittently confused discussed with Dr Medina, okay to admit to observation for encephalopathy and UTI, will treat with macrobid as last cx was sensitive to that Departure - Departure Clinical Impression: Encephalopathy acute, Acute UTI Disposition: [facility] Condition: Fair
[2017-06-20 15:37] LABS: Hemoglobin 13.5 gm/dL (12.5-16.0); Mean Cell Volume 84.2 fl (78-100); Mean Corpuscular Hemoglobin 29.2 pg (27-31); Mean Corpuscular Hgb Conc 34.6 g/dl (32-36); Mean Platelet Volume 11.5 fl (6.0-9.5); Neutrophil # 5.3 K/mm3 (1.3-6.0); Neutrophil % 74.4 % (42-75.0); Platelet Count 147 K/mm3 (150-450); Red Blood Count 4.63 M/mm3 (4.2-5.4); Red Cell Distribution Width 12.4 % (11.5-14.0); White Blood Count 7.1 K/mm3 (4.0-10.5)
[2017-06-20 15:40] LABS: Urine Bilirubin Negative (NEGATIVE); Urine Blood 25 /ul (NEGATIVE); Urine Ketone 5 mg/dL (NEGATIVE); Urine Nitrite Negative (NEGATIVE); Urine Protein 100 mg/dL (NEGATIVE); Urine Urobilinogen Normal (NORMAL); Urine pH 7.5 pH (5.0-7.0)
[2017-06-20 15:59] LABS: ALT 27 U/L (19-67); AST 19 U/L (0-48); Albumin * 2.8 gm/dl (3.4-5.0); Alkaline Phosphatase * 102 U/L (50-170); Amylase * 14 U/L (25-115); Anion Gap 15.8 mmol/L (6.8-13.8); BUN/Creatinine Ratio 14.4 (9.0-21.6); Bilirubin, Total 0.4 mg/dL (0.0-1.1); Blood Urea Nitrogen 13 mg/dL (3-23); Ca. Corrected For Albumin 9.2 mg/dL (8.4-10.2); Calcium * 8.6 mg/dL (7.9-10.9); Carbon Dioxide 23.2 mmol/L (24-32.6); Chloride 103 mmol/L (97-106); Glucose * 308 mg/dL (70-110); Sodium 138 mmol/L (132-142); Total Protein 6.2 gm/dL (6.2-8.2); Troponin I Less than 0.017 ng/ml (0.00-0.10)
[2017-06-20 16:08] LABS: Urine Amorphous Sediment Moderate - 2+ (NONE-FEW); Urine Appearance Slightly Cloudy; Urine Bacteria 1+; Urine Color Yellow; Urine WBC 0-5 /hpf (0-5); Urine Yeast Few - 1+
[2017-06-20] MEDS: LABETALOL HCL 5 MG/ML VIAL IV ONE ×2 (16:53→17:22)
--- NOTE | 2017-06-20 20:13 | HP ---
Chief Complaint - Chief Complaint Date of Service: 06/20/17 Time of Service: 20:13 Chief Complaint: "Confusion, poor appetite, nausea,". Source of HPI-Pt; unobtainable due to AMS, Pt's spouse Addison. History of Present Illness: Mrs. Arriaza is a 71-yr-old [place] pt of Dr. Aimee Medina with a PMH of: Angina at rest , Bladder tumor, CAD, Chronic Pain Syndrome, DM II, Glaucoma, HTN, HLD, IBS, OR & Osteoporosis. History is unobtainable from pt due to AMS and therefore her spouse, Addison Arriaza was reached by phone. He states that Mrs. Arriaza has had worsening confusion for the last 1-2 days. Her appetite has been very poor for the past 8 months and she has had on & off episodes of vomiting 30-40 minutes later after meals. He denies her having any fevers or chills. Today, she was complaining of abdominal pain and her confusion wasn't improving and so he called the EMS. At the ED, most oh her lab-work was otherwise unremarkable. The abdominal x-ray did not have any findings to suggest SBO, but moderate amount of stool was noted. The head CT also did not have any acute findings. However, she was found to have hypertenive urgency with BP of 225/100 and required IV Labetalol. The UA showed possible UTI. - Patient's Past Medical History Patient History - Medical: Chronic Pain, Diabetes Type 2, Fibromyalgia, Glaucoma , Hypothyroidism, Osteoarthritis, Osteoporosis, Other - bladder tumor, Chronic Pain Syndrome, Patient History - Cardiac/Respiratory: Coronary Heart Disease, Hypertension, Hyperlipidemia, Myocardial Infarction Patient History - Cancer: No Hx of Cancer Patient History - Surgical Procedures: Cardiac stent, Hysterectomy, Tubal Ligation, Other, Hernia Repair Patient History - Other: None - Family History Mother Family History - Medical: , Diabetes Type 2 Family History - Cardiac/Respiratory: No pertinent hx Family History - Cancer: No pertinent family hx Father Family History - Medical: , Diabetes Type 2 Family History - Cardiac/Respiratory: No pertinent hx Family History - Cancer: No pertinent family hx Sister Family History - Medical: Diabetes Type 2 Family History - Cardiac/Respiratory: No pertinent hx Family History - Cancer: No pertinent family hx Brother Family History - Medical: No pertinent hx Family History - Cardiac/Respiratory: No pertinent hx Family History - Cancer: Melanoma - Social History Living Situations: spouse Abuse History: No History of abuse Psych History: No pertinent hx Does anyone smoke in the home?: No Have you smoked in the past 12 months: No Alcohol Use: none Drug Use: none - Immunizations Immunizations Up to Date: No Hx Pneumococcal Vaccination: Yes History of Influenza Vaccine: Yes Review Of Systems (GEN) - Review of Systems Additional Comments: ROS unobtainable due to AMS. Immunizations: IMMUNIZATION HX Immunizations Up to Date No History of Influenza Vaccine Yes Hx Pneumococcal Vaccination Yes Allergies/Adverse Reactions: Allergies Allergy/AdvReac Type Severity Reaction Status Date / Time hydromorphone HCl Allergy Intermediate Other Verified 05/09/17 12:34 [From Dilaudid] codeine [Codeine] Allergy Mild Itching Verified 05/09/17 12:34 latex Allergy Mild Other Verified 05/09/17 12:34 clidinium [Clidinium] Allergy Unknown Verified 05/09/17 12:34 escitalopram Allergy Unknown Verified 05/09/17 12:34 opoid AdvReac Severe Other Uncoded 05/09/17 12:34 Home Medications: HOME MEDICATIONS Nitroglycerin 0.4 mg SL [id number] PRN 01/25/16 [Last Taken 05/08/17] traMADol HCL [Ultram] 50 mg PO Q12H PRN 01/25/16 [Last Taken 05/08/17] Atorvastatin Calcium [Lipitor] 80 mg PO HS tablet 01/28/16 [Last Taken 05/08/17 ] Brimonidine Tartrate [Brimonidine 0.2% Ophthalmic Solution] 1 drop EACHEYE BID 06/14/16 [Last Taken 05/08/17] Gabapentin [Neurontin] 900 mg PO TID 06/14/16 [Last Taken 05/08/17] Levothyroxine Sodium [Synthroid] 88 mcg PO DAILY 06/14/16 [Last Taken 05/08/17] Oxybutynin Chloride [Ditropan] 5 mg PO TID 06/14/16 [Last Taken 05/08/17] Ranolazine [Ranexa] 500 mg PO BID 01/05/17 [Last Taken 05/08/17] Metoprolol Succinate [Toprol Xl] 50 mg PO DAILY 05/01/17 [Last Taken 05/08/17 18 :00] Insulin Glargine,Hum.rec.anlog [Lantus] 18 units SC HS 06/20/17 [Last Taken Unknown] Insulin Lispro [Humalog] 8 units SC TIDWM 06/20/17 [Last Taken Unknown] Lisinopril [Zestril] 2.5 mg PO DAILY 06/20/17 [Last Taken Unknown] Nitrofurantoin/Nitrofuran Mac [Macrobid] 100 mg PO DAILY 06/20/17 [Last Taken Unknown] Polyethylene Glycol 3350 [Miralax] 17 gm PO DAILY 06/20/17 [Last Taken Unknown] Sennosides/Docusate Sodium [Senna-S Tablet] 1 each PO TID 06/20/17 [Last Taken Unknown] Tobramycin/Dexamethasone [Tobramycin-Dexameth Ophth Susp] 5 ml OP QID 06/20/17 [ Last Taken Unknown] Exam - Exam Vital Signs: Vital Signs - Last Taken Temp 36.8 C 06/20/17 15:36 Pulse 76 06/20/17 17:22 Resp 15 06/20/17 16:48 BP 188/86 06/20/17 17:22 Pulse Ox 96 06/20/17 16:48 Constitutional: Present: Alert - to self only, she mourns repeately about pain on abdomen and feeling cold, restless in bed., Mild distress, Elderly ENT Exam: Present: other - No teeth on upper and lower gums. Eye Exam: bilateral eye: normal inspection, PERRL Neck: Present: full range of motion, normal inspection Back Exam: Present: normal inspection, no CVA tenderness Breasts: Present: Exam deferred Respiratory: Present: lungs clear, No rales, No wheezing Cardiovascular/Chest: Present: normal peripheral pulses, regular rate, rhythm Abdomen: Present: Normal bowel sounds, soft, tender - LLQ /Rectal: Present: Exam deferred Extremity: Present: normal range of motion, normal inspection Skin Exam: Present: no cyanosis Lymphatic: Present: no adenopathy Neurologic: Present: no motor/sensory deficits, depressed affect, disoriented x 3 Appearance: Present: impaired insight, impaired recent memory Eye contact: Present: avoids eye contact, uncooperative Thoughts: Present: incoherent Diagnostic Studies: Laboratory Results WBC 7.1 K/mm3 (4.0-10.5) 06/20/17 15:35 RBC 4.63 M/mm3 (4.2-5.4) 06/20/17 15:35 Hgb 13.5 gm/dL (12.5-16.0) 06/20/17 15:35 Hct 39.0 % (37.0-47.0) 06/20/17 15:35 MCV 84.2 fl (78-100) 06/20/17 15:35 MCH 29.2 pg (27-31) 06/20/17 15:35 MCHC 34.6 g/dl (32-36) 06/20/17 15:35 RDW 12.4 % (11.5-14.0) 06/20/17 15:35 Plt Count 147 K/mm3 (150-450) L 06/20/17 15:35 MPV 11.5 fl (6.0-9.5) H 06/20/17 15:35 Immature Gran % (Auto) 0.30 % (0.001-0.429) 06/20/17 15:35 Immature Gran # (Auto) 0.02 K/mm3 (0.000-0.0310) 06/20/17 15:35 Neutrophils % 74.4 % (42-75.0) 06/20/17 15:35 Lymphocytes % 19.7 % (20-51) L 06/20/17 15:35 Monocytes % 4.7 % (0.0-9) 06/20/17 15:35 Eosinophils % 0.3 % (0.0-3.0) 06/20/17 15:35 Basophils % 0.6 % (0.0-1.0) 06/20/17 15:35 Nucleated RBC % 0.0 k/mm3 (0-1) 06/20/17 15:35 Neutrophils # 5.3 K/mm3 (1.3-6.0) 06/20/17 15:35 Lymphocytes # 1.4 k/mm3 (1.5-3.5) L 06/20/17 15:35 Monocytes # 0.3 k/mm3 (0.0-1.0) 06/20/17 15:35 Eosinophils # 0.0 k/mm3 (0.0-0.7) 06/20/17 15:35 Absolute Basophils 0.0 k/mm3 (0.0-0.1) 06/20/17 15:35 Sodium 138 mmol/L (132-142) 06/20/17 15:13 Plasma Sodium 141 mmol/L (130-142) 06/20/17 15:13 Potassium 4.0 mmol/L (3.4-4.6) 06/20/17 15:13 Chloride 103 mmol/L (97-106) 06/20/17 15:13 Carbon Dioxide 23.2 mmol/L (24-32.6) L 06/20/17 15:13 Anion Gap 15.8 mmol/L (6.8-13.8) H 06/20/17 15:13 BUN 13 mg/dL (3-23) 06/20/17 15:13 Creatinine 0.90 mg/dL (0.4-1.4) 06/20/17 15:13 Est GFR (Non-Af Amer) 65 mL/min (60-130) 06/20/17 15:13 BUN/Creatinine Ratio 14.4 (9.0-21.6) 06/20/17 15:13 Random Glucose 308 mg/dL (70-110) H 06/20/17 15:13 Calcium 8.6 mg/dL (7.9-10.9) 06/20/17 15:13 Calcium Adj for Albumin 9.2 mg/dL (8.4-10.2) 06/20/17 15:13 Total Bilirubin 0.4 mg/dL (0.0-1.1) 06/20/17 15:13 AST 19 U/L (0-48) 06/20/17 15:13 ALT 27 U/L (19-67) 06/20/17 15:13 Alkaline Phosphatase 102 U/L (50-170) 06/20/17 15:13 Troponin I Less than 0.017 ng/ml (0.00-0.10) 06/20/17 15:13 Total Protein 6.2 gm/dL (6.2-8.2) 06/20/17 15:13 Albumin 2.8 gm/dl (3.4-5.0) L 06/20/17 15:13 Amylase 14 U/L (25-115) L 06/20/17 15:13 Urine Color Yellow 06/20/17 15:27 Urine Appearance Slightly cloudy 06/20/17 15:27 Urine pH 7.5 pH (5.0-7.0) 06/20/17 15:27 Ur Specific [place] 1.020 SP.GR. (1.005-1.010) 06/20/17 15:27 Urine Protein 100 mg/dL (NEGATIVE) H 06/20/17 15:27 Urine Glucose (UA) 500 mg/dL (NEGATIVE) H 06/20/17 15:27 Urine Ketones 5 mg/dL (NEGATIVE) 06/20/17 15:27 Urine Blood 25 /ul (NEGATIVE) H 06/20/17 15:27 Urine Nitrate Negative (NEGATIVE) 06/20/17 15:27 Urine Bilirubin Negative mg/dl (NEGATIVE) 06/20/17 15:27 Prot Sulfosalicylic Acd 3+ mg/dL (0) H 06/20/17 15:27 Urine Urobilinogen Normal EU/dl (NORMAL) 06/20/17 15:27 Ur Leukocyte Esterase Negative /ul (NEGATIVE) 06/20/17 15:27 Urine RBC 5-10 /hpf (0-5) H 06/20/17 15:27 Urine WBC 0-5 /hpf (0-5) 06/20/17 15:27 Ur Epithelial Cells 0-5 /hpf (0-5) 06/20/17 15:27 Amorphous Sediment Moderate - 2+ (NONE-FEW) H 06/20/17 15:27 Urine Bacteria 1+ (NONE) H 06/20/17 15:27 Urine Yeast Few - 1+ (NONE) H 06/20/17 15:27 Urine Culture Comments Culture to follow 06/20/17 15:27 Serum Ketones Negative (NEGATIVE) 06/20/17 15:13 Assessment/Plan - Assessment/Plan (1) Encephalopathy acute Assessment: Pt is noted to have Confusion, agitation, & delirium. The conditions likely contributing to pt's delirious state: I) Infection- UA shows a UTI, II.) Dehydration: she had had poor food/liquid intake per pt's spouse or III) Delirium that can coexist with dementia. I do not suspect toxic causes from drugs as she is not on any psychiatric and sedative medications. 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 Will monitor progress following IVF hydration, better b/ps control and if no improvement, may consider obtaining MRI of the brain to check for vascular dementia. Will Hold Neurontin for now & Provide IVF hydration, continue oral antibiotics. Will utilize pharmacological therapy only when her agitation seems to be interfering with safety and if utilized, the goal will be to avoid sedation and keep her in a manageable state. Problem: Acute (2) Hypertensive urgency Assessment: Likely contributed by non- compliance with treatment regimen. Administered IV labetalol due to BP of 225/100. Will add prn Apresoline for SBP > 180 or DBP > 90. Problem: Acute (3) UTI (urinary tract infection) Assessment: Continue with Macrobid until urine culture results. Problem: Acute (4) Altered mental status Problem: Acute (5) Delirium, acute Assessment: Plan as above. Problem: Acute (6) Diabetes type 2, controlled Assessment: Accu checks ACHS, Carb Control diet. Continue with Long acting and mealtime insulin. Problem: Chronic Qualifiers: Diabetic retinopathy severity: with proliferative retinopathy (7) GERD (gastroesophageal reflux disease) Problem: Chronic Qualifiers: Esophagitis presence: without esophagitis Qualified Code(s): K21.9 - Gastro -esophageal reflux disease without esophagitis (8) HTN (hypertension) Problem: Chronic Qualifiers: Hypertension type: essential hypertension Qualified Code(s): I10 - Essential (primary) hypertension (9) Hyperlipemia Problem: Chronic
[2017-06-20] MEDS ORDERED: NITROFURANTOIN/NITROFURAN MAC 100 MG CAPSULE PO SCH (21:00)
[2017-06-20] MEDS ORDERED: NITROGLYCERIN 0.4 MG/TAB BTL SL PRN (21:40)
[2017-06-20] MEDS: INSULIN GLARGINE,HUM.REC.ANLOG 100 UNITS/ML VIAL SC SCH (22:32)
[2017-06-20] MEDS: BRIMONIDINE TARTRATE 50 DROP BTL EACHEYE SCH (22:35)
[2017-06-21] MEDS ORDERED: hydrALAZINE HCL 25 MG TABLET ONE (00:26)
[2017-06-21] MEDS: hydrALAZINE HCL 50 MG TABLET PO PRN (00:31)
[2017-06-21] MEDS: NORMAL SALINE 1,000 ML IV PRN ×2 (01:17→14:18)
[2017-06-21 07:03] LABS: BUN/Creatinine Ratio 17.9 (9.0-21.6); Calcium * 8.7 mg/dL (7.9-10.9); Carbon Dioxide 23.7 mmol/L (24-32.6); Estimated Creat Clear 52.3; Potassium 3.7 mmol/L (3.4-4.6)
[2017-06-21] MEDS: LEVOTHYROXINE SODIUM 88 MCG TABLET PO SCH (07:32)
[2017-06-21] MEDS: NITROFURANTOIN/NITROFURAN MAC 100 MG CAPSULE PO SCH ×3 (07:55→21:05)
[2017-06-21] MEDS: POLYETHYLENE GLYCOL 3350 119 GM BTL PO SCH ×2 (07:55→09:03)
[2017-06-21] MEDS: OXYBUTYNIN CHLORIDE 5 MG TABLET PO SCH ×4 (07:55→16:54)
[2017-06-21] MEDS: BRIMONIDINE TARTRATE 50 DROP BTL EACHEYE SCH ×3 (07:57→21:03)
[2017-06-21] MEDS: SENNOSIDES/DOCUSATE SODIUM 1 TAB TABLET PO SCH ×3 (07:59→17:02)
[2017-06-21] MEDS: TOBRAMYCIN SULFATE/DEXAMETH 25 DROP BTL OP SCH ×4 (08:00→21:04)
[2017-06-21] MEDS: METOPROLOL SUCCINATE 50 MG TABLET.SA PO SCH (08:00)
[2017-06-21] MEDS: hydrALAZINE HCL 20 MG/ML VIAL IV PRN ×2 (08:35→21:26)
[2017-06-21] MEDS: INSULIN LISPRO 100 UNITS/ML VIAL SC SCH ×3 (08:59→17:02)
[2017-06-21] MEDS ORDERED: TOBRAMYCIN SULFATE/DEXAMETH 25 DROP BTL OP SCH (09:00)
[2017-06-21] MEDS ORDERED: LISINOPRIL 2.5 MG TABLET PO SCH (09:00)
[2017-06-21] MEDS: LISINOPRIL 10 MG TABLET PO SCH (09:15)
[2017-06-21] MEDS: ENOXAPARIN SODIUM 40 MG/0.4 ML SYRG SC SCH (17:44)
--- NOTE | 2017-06-21 20:06 | PN ---
Subjective - Date and Time Seen Date: 06/21/17 Time: 19:52 Subjective Narrative: Mrs. Arriaza examined this am. She is tearful, restless, in mild distress and is alert and oriented to self and place only. She is retching, states that she ' feels like she is going to throw up.' & complains of lower Abdominal pain. Nursing reports poor appetite all day and only drunk apple juice and when given medicine, she spits out. She refuses to wear her dentures. B/Ps improved but slightly elevated. Objective - Vitals Vitals: Last Vital Signs Temp 37.0 C 06/21/17 15:08 Pulse 86 06/21/17 15:08 Resp 20 06/21/17 15:08 BP 175/55 06/21/17 15:08 Pulse Ox 97 06/21/17 15:08 - Exam Constitutional: Present: Alert, Mild distress, Elderly ENT Exam: Present: hard of hearing. Absent: nasal drainage, pharyngeal erythema Neck: Present: full range of motion, supple, normal inspection Breasts: Present: Exam deferred Respiratory: Present: lungs clear, No rales, No wheezing Cardiovascular/Chest: Present: regular rate, rhythm, no edema Abdomen: Present: Normal bowel sounds, soft, tender - lower abdomen /Rectal: Present: Exam deferred Extremity: Present: normal range of motion, non-tender, normal inspection, no pedal edema Skin Exam: Present: warm/dry, no cyanosis Neurologic: Present: no motor/sensory deficits, alert, depressed affect Appearance: Present: impaired insight, impaired recent memory Eye contact: Present: decreased rate of speech, compulsive Thoughts: Present: no apparent hallucination, incoherent Assessment/Plan - Problems/Diagnosis (1) Encephalopathy acute Problem: Acute Narrative: 06/20/17-Pt is noted to have Confusion, agitation, & delirium. The conditions likely contributing to pt's delirious state: I) Infection- UA shows a UTI, II. ) Dehydration: she had had poor food/liquid intake per pt's spouse or III) Delirium that can coexist with dementia. I do not suspect toxic causes from drugs as she is not on any psychiatric and sedative medications. 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 Will monitor progress following IVF hydration, better b/ps control and if no improvement, may consider obtaining MRI of the brain to check for vascular dementia. Will Hold Neurontin for now & Provide IVF hydration, continue oral antibiotics. Will utilize pharmacological therapy only when her agitation seems to be interfering with safety and if utilized, the goal will be to avoid sedation and keep her in a manageable state. 06/21/17- Still noted to be restless, irritable, focus is poor, unable to carry out a conversation, and will answer questions with one or two words. Nursing reports she refuses to eat and has had poor oral intake at home for a while. Cannot perform any ADLs without assistance.Etiology of delirum unclear but malnutrition is also one of the risk factors. will consult Psychiatry as she may need oral antispychotics & she will be evaluated on 06/21/17 (2) Hypertensive urgency Problem: Acute Narrative: Likely contributed by non- compliance with treatment regimen. Administered IV labetalol due to BP of 225/100. Will add Prn Apresoline for SBP > 180 or DBP > 90 on DOA- b/p 06/21/17- B/Ps slighly elevated but improved. Lisinopril daily dose increased. (3) UTI (urinary tract infection) Problem: Acute Narrative: Continue with Macrobid until urine culture results. (4) Abdominal pain Problem: Acute Narrative: Pt states that her lower abdomen hurts. There is no distention, guarding, but she has tenderness on lower abdomen. She complains of feeling nauseted and is noted to be retching. Abdominal X-ray on 06/20 did not show anything acute, but there was moderate stool retention. Will give additional miralax tonight and dulcolax suppository. (5) Altered mental status Problem: Acute (6) Diabetes type 2, controlled Problem: Chronic Qualifiers: Diabetic retinopathy severity: with proliferative retinopathy Narrative: Accu checks ACHS, Carb Control diet. Continue with Long acting and mealtime insulin. (7) Delirium, acute Problem: Acute (8) GERD (gastroesophageal reflux disease) Problem: Chronic Qualifiers: Esophagitis presence: without esophagitis Qualified Code(s): K21.9 - Gastro -esophageal reflux disease without esophagitis (9) HTN (hypertension) Problem: Chronic Qualifiers: Hypertension type: essential hypertension Qualified Code(s): I10 - Essential (primary) hypertension (10) Hyperlipemia Problem: Chronic
[2017-06-21] MEDS ORDERED: BISACODYL 10 MG SUPP.RECT RC ONE (20:30)
[2017-06-21] MEDS ORDERED: POLYETHYLENE GLYCOL 3350 119 GM BTL PO SCH (20:30)
[2017-06-21] MEDS: ROSUVASTATIN CALCIUM 20 MG TABLET PO SCH (21:05)
[2017-06-21] MEDS: INSULIN GLARGINE,HUM.REC.ANLOG 100 UNITS/ML VIAL SC SCH (21:24)
[2017-06-22] MEDS: NORMAL SALINE 1,000 ML IV PRN ×2 (03:58→17:08)
--- NOTE | 2017-06-22 06:19 | PN ---
Subjective - Date and Time Seen Date: 06/22/17 - n Time: 06:01 Subjective Narrative: Mrs. Arriaza seen this am. As i entered the room, she seemed to be resting/ sleeping comfortably. When i called her name, she woke-up, became restless, while nodding her head side to side. She repeatedly says, "help me, help me, am cold."She is oriented to self only. When asked questions, she will repeat back the question and says "I don't know." She starts retching repeatedly and brings up saliva. says her 'abdomen hurts and feels hot,' while touching the lower section. According to nursing, she had little results with dulcolax and miralax. Objective - Vitals Vitals: Last Vital Signs Temp 37.0 C 06/22/17 03:05 Pulse 95 06/22/17 03:05 Resp 20 06/22/17 03:05 BP 191/83 06/22/17 03:05 Pulse Ox 96 06/22/17 03:05 - Exam Constitutional: Present: Alert, Mild distress, Other - gets easily irritated and restless., Elderly ENT Exam: Present: hard of hearing, other - No teeth, - Neck: Present: full range of motion, supple, normal inspection Respiratory: Present: normal breath sounds, No rales, No wheezing Cardiovascular/Chest: Present: regular rate, rhythm, no chest tenderness, no edema, no murmur Abdomen: Present: Normal bowel sounds, soft, tender - lower abdomen /Rectal: Present: Exam deferred Extremity: Present: non-tender, normal inspection, no pedal edema Skin Exam: Present: warm/dry, no cyanosis Lymphatic: Present: no adenopathy Neurologic: Present: no motor/sensory deficits, alert, disoriented x 3 Appearance: Present: impaired insight, impaired recent memory, impaired remote memory Eye contact: Present: decreased rate of speech, compulsive Thoughts: Present: no apparent hallucination, incoherent Assessment/Plan - Problems/Diagnosis (1) Encephalopathy acute Problem: Acute Narrative: 06/20/17-Pt is noted to have Confusion, agitation, & delirium. The conditions likely contributing to pt's delirious state: I) Infection- UA shows a UTI, II. ) Dehydration: she had had poor food/liquid intake per pt's spouse or III) Delirium that can coexist with dementia. I do not suspect toxic causes from drugs as she is not on any psychiatric and sedative medications. She has had prior episodes of delirium states which research shows it can can be associated with permanent neurologic damage and will likely continue to have manager terminal cognitive and functional deficits, hence Skilled placement may be necessary in the near future. Will monitor progress following IVF hydration, better b/ps control and if no improvement, may consider obtaining MRI of the brain to check for vascular dementia. Will Hold Neurontin for now & Provide IVF hydration, continue oral antibiotics. Will utilize pharmacological therapy only when her agitation seems to be interfering with safety and if utilized, the goal will be to avoid sedation and keep her in a manageable state. 06/21/17- Still noted to be restless, irritable, focus is poor, unable to carry out a conversation, and will answer questions with one or two words. Nursing reports she refuses to eat and has had poor oral intake at home for a while. Cannot perform any ADLs without assistance.Etiology of delirum unclear but malnutrition is also one of the risk factors. will consult Psychiatry as she may need oral antispychotics & she will be evaluated on 06/21/17 06/22/17- Behaviour is unchanged. Will await input from psychiatry. (2) Hypertensive urgency Problem: Acute Narrative: Likely contributed by non- compliance with treatment regimen. Administered IV labetalol due to BP of 225/100. Will add Prn Apresoline for SBP > 180 or DBP > 90 on DOA- b/p 06/21/17- B/Ps slighly elevated but improved. Lisinopril daily dose increased. (3) UTI (urinary tract infection) Problem: Acute Narrative: Continue with Macrobid until urine culture results. 06/22/17- No growth on preliminary urine culture results. (4) Abdominal pain Problem: Acute Narrative: 06/21/17-Pt states that her lower abdomen hurts. There is no distention, guarding, but she has tenderness on lower abdomen. She complains of feeling nauseted and is noted to be retching. Abdominal X-ray on 06/20 did not show anything acute, but there was moderate stool retention. Will give additional miralax tonight and dulcolax suppository. 06/22/17- No good results with miralax and dulcolax supp. Still complain of abdominal pain, and says her lower abdomen feels hot. May consider obtaining CT of the abdomen. (5) Altered mental status Problem: Acute (6) Delirium, acute Problem: Acute (7) Diabetes Problem: Chronic Qualifiers: Diabetes mellitus type: type 2 Narrative: Accu checks ACHS, Carb Control diet. Continue with Long acting and mealtime insulin (8) GERD (gastroesophageal reflux disease) Problem: Chronic Qualifiers: Esophagitis presence: without esophagitis Qualified Code(s): K21.9 - Gastro -esophageal reflux disease without esophagitis (9) HTN (hypertension) Problem: Chronic Qualifiers: Hypertension type: essential hypertension Qualified Code(s): I10 - Essential (primary) hypertension (10) Hyperlipemia Problem: Chronic
[2017-06-22] MEDS: INSULIN LISPRO 100 UNITS/ML VIAL SC SCH ×6 (07:12→17:12)
[2017-06-22] MEDS: LEVOTHYROXINE SODIUM 88 MCG TABLET PO SCH (07:12)
[2017-06-22] MEDS: hydrALAZINE HCL 20 MG/ML VIAL IV PRN (08:36)
[2017-06-22] MEDS: POLYETHYLENE GLYCOL 3350 119 GM BTL PO SCH (08:44)
[2017-06-22] MEDS: hydrALAZINE HCL 50 MG TABLET PO PRN ×2 (08:44→21:01)
[2017-06-22] MEDS: LISINOPRIL 10 MG TABLET PO SCH (08:45)
[2017-06-22] MEDS: SENNOSIDES/DOCUSATE SODIUM 1 TAB TABLET PO SCH ×3 (08:45→17:12)
[2017-06-22] MEDS: NITROFURANTOIN/NITROFURAN MAC 100 MG CAPSULE PO SCH ×2 (08:47→20:49)
[2017-06-22] MEDS: BRIMONIDINE TARTRATE 50 DROP BTL EACHEYE SCH ×2 (08:47→20:48)
[2017-06-22] MEDS: OXYBUTYNIN CHLORIDE 5 MG TABLET PO SCH ×3 (08:47→17:12)
[2017-06-22] MEDS: TOBRAMYCIN SULFATE/DEXAMETH 25 DROP BTL OP SCH ×4 (08:48→20:49)
[2017-06-22] MEDS: METOPROLOL SUCCINATE 50 MG TABLET.SA PO SCH (11:29)
[2017-06-22] MEDS: traMADol HCL 50 MG TABLET PO PRN (13:31)
[2017-06-22] MEDS: ENOXAPARIN SODIUM 40 MG/0.4 ML SYRG SC SCH (17:12)
--- NOTE | 2017-06-22 18:25 | CONS ---
[facility] - General Date of Service: 06/22/17 Source: patient, family, RN/MD, RN notes reviewed, old records Exam Limitations: other - History of Present Illness Allergies/Adverse Reactions: Allergies hydromorphone HCl [From Dilaudid] Allergy (Intermediate, Verified 05/09/17 12:34 ) Other Altered mental status codeine [Codeine] Allergy (Mild, Verified 05/09/17 12:34) Itching latex Allergy (Mild, Verified 05/09/17 12:34) Other Blisters clidinium [Clidinium] Allergy (Unknown, Verified 05/09/17 12:34) escitalopram Allergy (Unknown, Verified 05/09/17 12:34) opoid Adverse Reaction (Severe, Uncoded 05/09/17 12:34) Other Altered mental status Home Medications: Home Medications Medication Instructions Recorded Last Taken Nitroglycerin 0.4 mg SL [id number] PRN 01/25/16 05/08/17 traMADol HCL [Ultram] 50 mg PO Q12H PRN 01/25/16 05/08/17 Brimonidine Tartrate [Brimonidine 1 drop EACHEYE BID 06/14/16 05/08/17 0.2% Ophthalmic Solution] Gabapentin [Neurontin] 900 mg PO TID 06/14/16 05/08/17 Levothyroxine Sodium [Synthroid] 88 mcg PO DAILY 06/14/16 05/08/17 Oxybutynin Chloride [Ditropan] 5 mg PO TID 06/14/16 05/08/17 Ranolazine [Ranexa] 500 mg PO BID 01/05/17 05/08/17 Metoprolol Succinate [Toprol Xl] 50 mg PO DAILY 05/01/17 05/08/17 18:00 Insulin Glargine,Hum.rec.anlog 18 units SC HS 06/20/17 Unknown [Lantus] Insulin Lispro [Humalog] 8 units SC TIDWM 06/20/17 Unknown Lisinopril [Zestril] 2.5 mg PO DAILY 06/20/17 Unknown Nitrofurantoin/Nitrofuran Mac 100 mg PO DAILY 06/20/17 Unknown [Macrobid] Polyethylene Glycol 3350 [Miralax] 17 gm PO DAILY 06/20/17 Unknown Sennosides/Docusate Sodium 1 each PO TID 06/20/17 Unknown [Senna-S Tablet] Tobramycin/Dexamethasone 5 ml OP QID 06/20/17 Unknown [Tobramycin-Dexameth Ophth Susp] - Narrative Narrative: IDENTIFYING INFORMATION Zoila Arriaza is a 71 year old , , female from [place], [place] admitted through our ED for evaluation and treatment of : 1-Stomach pain 2-Altered consciousness She was referred to me by Dr. Aimee Medina, for psychiatric evaluation and treatment. I reviewed all of her medical files and ran an exhaustive drug-drug interaction check of each of her home medications and spent a considerable amount of time with Addison, her long-suffering , overwhelmed of 53 years alone and then saw them together in her room for another good hour. 1-This woman is one of three siblings. She has a brother and a sister. Her father in 1985 of complications related to uncontrolled Diabetes Mellitus Type II who eventually had his legs amputated and "lost her mind two weeks before he ." This was in August that year. 2-Her mother was a source of a great deal of pain for Zoila: She was given to rapid, rapid moodswings, insane spending sprees, rages for no visible or predictable triggers. She was a hypochondriac who demanded a lot of adulation and attention from her children and . She eventually from metastatic cancer the source focus being undiscovered. This was in 2003. 3-Addison considers her the "only love of my life." He coddled her and gave her the stability and "unconditional love" that was totally alien to her until they met. 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 Things really went from bad to worse after the demise of her mother towards whom she held a strong set of ambivalent feelings. In May 5 years ago, after years of hypochondriacal stomach complaints for which no medical provider , including the [facility] , could find a plausible etiological disease , she suddenly became psychotic. "It was scary to watch as she talked gibberish and made no sense at all. And as unpredictably stochastic as her moods and "psychotic episodes " came , she would suddenly be "just as normal as can be !" Two years ago , in July, she had another "nervous breakdown " wherein she talked gibberish again and totally made no sense. She had refused to eat or drink for days on end even when she was advised stentorially against this practice by her medical providers. "She has always been quite sensitive about her weight as , at 5'5" , she weighed above 200 lbs. "For two months, she had suffered these things after a course of Hydrocortisone." It got so insane that she fired her medical provider , Dr. Swift of killing all of his assistants ." Within the past 3 weeks, she was diagnosed with bladder malignancy and , just this week, was informed by Dr. Mike Maldonado , her Urologist, that she also has a malignancy in her kidney. "This really threw her for a loop because she has always been afraid of dying.She then went back to her refusing to eat or drink within the past 24 hours which eventually led to my taking her here to our Emergency Room because she was totally out of it." An impressive constant in all the vagaries of this woman's excesses --according to Addison- is how, from out the blue, as when I signed her out of here { peremptorily } because she objected to the oppressive bullying of the Physical Therapist, as she was "out of her mind all this time when she was an inpatient, the moment we got into my car, she suddenly as normal as she has ever been for no reason at all." The nursing staff have noticed these patterns of behavior as in when she was "so out of it the whole day today , until the Respiratory Therapist , who she has always loved , walked in and , suddenly, from her confused , disoriented state, she suddenly became "with it" and gabbing giddily with that member of our staff. And then, after that staffer left, she suddenly lapsed into "being out of it." INTERVIEW That last paragraph's truth was never as dramatically shown as when I spent a considerable amount of time with her and her . She kept complaining of how hard of hearing she was , but when I murmured some witticism which I knew would trip her trigger, she "suddenly could hear every single word I said !" When she refused the SC anticoagulant she was supposed to have to avoid DVTs , she suddenly acquiesced when I quipped that she would certainly be in a heap of bad shape if she didn't allow that injection. This woman definitely embodies the actions and presentation of the Great Cecille Blair , the famous stage actress , who made it her obsession to sleep in a silk-lined coffin when she was on the road to perform. She repeatedly told me that she does not know how our current President is , nor does she recall the past 5 Presidents were in sequence backwards. She says that she has no idea what year {"1916"} , month, or date today is. Judgment, orientation, abstract thinking, calculation and memory were totally absent. Her general fund of information was as barren as that possessed by a person who has lived under a rock for the past decade or so . It is my opinion that the great majority of these deficiencies were staged and dissimulated. IMPRESSIONS 1-Bipolar affective disorder 2-Posttraumatic Stress Disorder 3-Munchhausen syndrome 4-Histrionic personality disorder Thank you for asking me to participate in this certainly challenging lady's care. Nelly Uribe M.D. Total time spent: 2 hours - Patient's Past Medical History Patient History - Medical: Chronic Pain, Diabetes Type 2, Fibromyalgia, Glaucoma , Hypothyroidism, Osteoarthritis, Osteoporosis, Other - bladder tumor, Chronic Pain Syndrome, Patient History - Cardiac/Respiratory: Coronary Heart Disease, Hypertension, Hyperlipidemia, Myocardial Infarction Patient History - Cancer: No Hx of Cancer Patient History - Surgical Procedures: Cardiac stent, Hysterectomy, Tubal Ligation, Other, Hernia Repair Patient History - Other: None - Family History Mother Family History - Medical: , Diabetes Type 2 Family History - Cardiac/Respiratory: No pertinent hx Family History - Cancer: No pertinent family hx Father Family History - Medical: , Diabetes Type 2 Family History - Cardiac/Respiratory: No pertinent hx Family History - Cancer: No pertinent family hx Sister Family History - Medical: Diabetes Type 2 Family History - Cardiac/Respiratory: No pertinent hx Family History - Cancer: No pertinent family hx Brother Family History - Medical: No pertinent hx Family History - Cardiac/Respiratory: No pertinent hx Family History - Cancer: Melanoma - Social History Living Situations: spouse Abuse History: No History of abuse Psych History: No pertinent hx Does anyone smoke in the home?: No Smoking Status: Former smoker Have you smoked in the past 12 months: No Do you dip or chew tobacco: No Alcohol Use: none Drug Use: none - Immunizations Immunizations Up to Date: No Hx Pneumococcal Vaccination: Yes History of Influenza Vaccine: Yes Procedures ANESTH INJEC PERIPH NERV (03/27/07) ANESTH INJECT-SPIN CANAL (08/29/04) DRAINAGE OF BLADDER, VIA NATURAL OR ARTIFICIAL OPENING (06/20/17) ENDOSC POLYPECTOMY OF LG INTEST (05/27/07) ESOPHAGOGASTRODUODENOSCOPY [EGD] W/CLOSED BIOPSY (03/27/07) EXCIS DEBRIDE OF WOUND, INFECT, OR BURN (07/19/11) FLUOROSCOPY OF LEFT KIDNEY, URETER AND BLADDER (05/09/17) INJECT STEROID (03/27/07) IRRIGATION OF GENITOURINARY TRACT USING IRRIGAT, ENDO, DIAGN (05/09/17) PERIPH NERVE INJECT NEC (03/27/07) SPINAL CANAL INJECT NEC (08/29/04) TOE AMPUTATION (07/07/11) Medications - Medications Current Medications: Current Medications Brimonidine Tartrate (Brimonidine 0.2% Ophthalmic Solution) 1 drop EACHEYE BID [facility] Stop: 07/20/17 21:46 Last Admin: 06/22/17 08:47 Dose: 1 drop Enoxaparin Sodium (Lovenox) 40 mg SC Q24H [facility] Stop: 07/21/17 17:31 Last Admin: 06/22/17 17:12 Dose: 40 mg Hydralazine HCl (Apresoline) 50 mg PO Q6H PRN PRN Reason: Hypertension Stop: 07/20/17 23:01 Last Admin: 06/22/17 08:44 Dose: 50 mg Hydralazine HCl (Apresoline) 20 mg IV Q4H PRN PRN Reason: Hypertension Stop: 07/21/17 08:12 Last Admin: 06/22/17 08:36 Dose: 20 mg Sodium Chloride (Sodium Chloride 0.9%) 1,000 mls @ 75 mls/hr IV .[id number] PRN PRN Reason: HYDRATION Stop: 07/21/17 00:58 Last Admin: 06/22/17 17:08 Dose: 75 mls/hr Insulin Glargine (Lantus) 18 units SC HS [facility] Stop: 07/20/17 22:01 Last Admin: 06/21/17 21:24 Dose: 9 units Insulin Human Lispro (Humalog) 8 units SC TIDWM [facility] Stop: 07/21/17 09:01 Last Admin: 06/22/17 17:12 Dose: 8 units Insulin Human Lispro (Humalog) 0 units SC ACINS [facility] PRN Reason: Protocol Stop: 07/22/17 07:01 Last Admin: 06/22/17 17:07 Dose: Not Given Levothyroxine Sodium (Synthroid) 88 mcg PO QDAC [facility] Stop: 07/21/17 07:01 Last Admin: 06/22/17 07:12 Dose: 88 mcg Lisinopril (Zestril) 10 mg PO DAILY [facility] Stop: 07/21/17 09:01 Last Admin: 06/22/17 08:45 Dose: 10 mg Metoprolol Succinate (Toprol Xl) 50 mg PO DAILY [facility] Stop: 07/21/17 09:01 Last Admin: 06/22/17 11:29 Dose: 50 mg Nitrofurantoin Macrocrystals (Macrobid) 100 mg PO BID [facility] Stop: 07/21/17 09:01 Last Admin: 06/22/17 08:47 Dose: 100 mg Oxybutynin Chloride (Ditropan) 5 mg PO TID [facility] Stop: 07/21/17 09:01 Last Admin: 06/22/17 17:12 Dose: 5 mg Polyethylene Glycol (Miralax) 17 gm PO DAILY [facility] Stop: 07/21/17 09:01 Last Admin: 06/22/17 08:44 Dose: 17 gm Polyethylene Glycol (Miralax) 17 gm PO ONCE [facility] Stop: 07/21/17 20:31 Last Admin: 06/21/17 20:54 Dose: 17 gm Ranolazine (Ranexa) 500 mg PO BID [facility] Stop: 07/21/17 09:01 Last Admin: 06/22/17 08:44 Dose: 500 mg Rosuvastatin Calcium (Crestor) 40 mg PO HS [facility] Stop: 07/21/17 21:01 Last Admin: 06/21/17 21:05 Dose: 40 mg Senna/Docusate Sodium (Senokot-S) 1 tab PO TID [facility] Stop: 07/21/17 09:01 Last Admin: 06/22/17 17:12 Dose: 1 tab Tobramycin/Dexamethasone (Tobradex) 1 drop OP QID [facility] Stop: 07/21/17 09:01 Last Admin: 06/22/17 17:13 Dose: 1 drop Tramadol HCl (Ultram) 50 mg PO Q12H PRN PRN Reason: Pain Stop: 07/20/17 21:41 Last Admin: 06/22/17 13:31 Dose: 50 mg Physical Examination - Exam Vital Signs: Vital Signs - Last Taken Temp 37.1 C 06/22/17 15:33 Pulse 76 06/22/17 15:33 Resp 18 06/22/17 15:33 BP 163/71 06/22/17 15:33 Pulse Ox 97 06/22/17 15:33 O2 Oxygen Delivery Method Room Air
[2017-06-22] MEDS: ROSUVASTATIN CALCIUM 20 MG TABLET PO SCH (20:49)
[2017-06-22] MEDS: INSULIN GLARGINE,HUM.REC.ANLOG 100 UNITS/ML VIAL SC SCH (20:57)
[2017-06-23] MEDS: hydrALAZINE HCL 20 MG/ML VIAL IV PRN (03:22)
[2017-06-23] MEDS: NORMAL SALINE 1,000 ML IV PRN (05:17)
[2017-06-23] MEDS: traMADol HCL 50 MG TABLET PO PRN (05:49)
--- NOTE | 2017-06-23 06:10 | PN ---
Subjective - Date and Time Seen Date: 06/23/17 Time: 06:02 Subjective Narrative: Mrs. Arriaza seen this morning. Nursing reports a restful night till 5.00am. She is very tearful. Says " please let me !" "you cant leave me alone!". Complains about her RT foot hurting. When asked if her abdomen feels any better , she says "it hurts too" and starts retching. BP is still elevated. No other acute issues. Seen and evaluated by Psychiatry yesterday. Objective - Vitals Vitals: Last Vital Signs Temp 36.7 C 06/23/17 03:05 Pulse 71 06/23/17 03:22 Resp 18 06/23/17 03:05 BP 149/57 06/23/17 04:54 Pulse Ox 97 06/23/17 03:05 - Exam Constitutional: Present: Alert, Mild distress, Elderly ENT Exam: Present: hard of hearing Neck: Present: full range of motion, supple, normal inspection Breasts: Present: Exam deferred Respiratory: Present: lungs clear, No rales, No wheezing Cardiovascular/Chest: Present: regular rate, rhythm, no chest tenderness, no edema Abdomen: Present: Normal bowel sounds, soft, nontender /Rectal: Present: Exam deferred Extremity: Present: non-tender, normal inspection, no pedal edema Skin Exam: Present: warm/dry, no cyanosis Lymphatic: Present: no adenopathy Neurologic: Present: no motor/sensory deficits, alert, depressed affect, disoriented x 3 Appearance: Present: impaired insight Eye contact: Present: cooperative, compulsive Thoughts: Present: no apparent hallucination, incoherent Assessment/Plan - Problems/Diagnosis (1) Encephalopathy acute Problem: Acute Narrative: Pt presented with delirium noted with Confusion, agitation/irritability and the cause was unclear as most of her labwork, and imaging involving Head CT & CXR did not have any acute findings. The were no new medications involved and she was not any sedative hypnotic, or antipsychotic medications. Behaviour did not improve and Psychiatry was consulted. Impression given by Psych: Bipolar affective disorder, Posttraumatic Stress Disorder, Munchhausen syndrome & Histrionic personality disorder. I do not see any pharmacological therapy he recommended for Mrs. Arriaza to overcome her mood or behaviours. Will contact him for more guidance. Otherwise it may be beneficial to pt to be placed at a senior care home where she can receive round the clock care & proper nutrition until she can regain ability of selfcare. 7.22am I called Dr. Wong in regards to treatment recommendations given her behaviours. He does not recommend any antipsychotics/sedatives pharmacological treatment as pt's behaviours are manipulation for sympathy from . Per Dr. Wong, pt spouse stated that intermediate placement is not an option for him as he is 'madly inlove with her.' (See his note for details). He suggested we could try 1 mg po haldol at hs only. (2) Hypertensive urgency Problem: Acute Narrative: Likely contributed by non- compliance with treatment regimen. Administered IV labetalol due to BP of 225/100. Will add Prn Apresoline for SBP > 180 or DBP > 90 on DOA- b/p 06/21/17- B/Ps slighly elevated but improved. Lisinopril daily dose increased. 06/22/17- Still having episodes of elevated B/Ps and prn Apresoline doses have been utilized a few times. Consider adding and changing lisinopril to 10 bid or 5 mg bid. (3) UTI (urinary tract infection) Problem: Acute Narrative: Was on Macrobid & final urine culture shows no growth. Will stop the macrobid. (4) Diabetes Problem: Chronic Qualifiers: Diabetes mellitus type: type 2 Narrative: Accu checks ACHS, Carb Control diet. Continue with Long acting and mealtime insulin. Levemir dose cut back by 50% due to low hs blood sugars. (5) Abdominal pain Problem: Acute Narrative: Non- Specific complain. No acute findings on Abdominal X-ray on 06/23. (6) Altered mental status Problem: Acute (7) Delirium, acute Problem: Acute (8) GERD (gastroesophageal reflux disease) Problem: Chronic Qualifiers: Esophagitis presence: without esophagitis Qualified Code(s): K21.9 - Gastro -esophageal reflux disease without esophagitis (9) HTN (hypertension) Problem: Chronic Qualifiers: Hypertension type: essential hypertension Qualified Code(s): I10 - Essential (primary) hypertension (10) Hyperlipemia Problem: Chronic
[2017-06-23] MEDS: LEVOTHYROXINE SODIUM 88 MCG TABLET PO SCH (07:07)
[2017-06-23] MEDS: INSULIN LISPRO 100 UNITS/ML VIAL SC SCH ×3 (07:11→11:30)
[2017-06-23 07:38] VITALS: BP 122/54
[2017-06-23 08:11] LABS: Hematocrit 39.3 % (37.0-47.0); Hemoglobin 13.4 gm/dL (12.5-16.0); Mean Corpuscular Hemoglobin 29.3 pg (27-31); Mean Corpuscular Hgb Conc 34.1 g/dl (32-36); Platelet Count 164 K/mm3 (150-450); Red Blood Count 4.57 M/mm3 (4.2-5.4); Red Cell Distribution Width 13.4 % (11.5-14.0); White Blood Count 8.4 K/mm3 (4.0-10.5)
[2017-06-23 08:19] LABS: Anion Gap 16.1 mmol/L (6.8-13.8); BUN/Creatinine Ratio 19.8 (9.0-21.6); Calcium * 8.4 mg/dL (7.9-10.9); Carbon Dioxide 20.1 mmol/L (24-32.6); Estimated Creat Clear 45.7; Potassium 3.2 mmol/L (3.4-4.6)
[2017-06-23] MEDS: SENNOSIDES/DOCUSATE SODIUM 1 TAB TABLET PO SCH (08:21)
[2017-06-23] MEDS: hydrALAZINE HCL 50 MG TABLET PO PRN (08:21)
[2017-06-23] MEDS: OXYBUTYNIN CHLORIDE 5 MG TABLET PO SCH (08:21)
[2017-06-23] MEDS: LISINOPRIL 10 MG TABLET PO SCH (08:21)
[2017-06-23] MEDS: METOPROLOL SUCCINATE 50 MG TABLET.SA PO SCH (08:22)
[2017-06-23] MEDS: BRIMONIDINE TARTRATE 50 DROP BTL EACHEYE SCH (08:22)
[2017-06-23] MEDS: POLYETHYLENE GLYCOL 3350 119 GM BTL PO SCH (08:23)
[2017-06-23] MEDS: NITROFURANTOIN/NITROFURAN MAC 100 MG CAPSULE PO SCH (08:25)
[2017-06-23] MEDS: TOBRAMYCIN SULFATE/DEXAMETH 25 DROP BTL OP SCH (08:26)
--- NOTE | 2017-06-23 12:17 | DS ---
(1) Bipolar affective disorder Problem: Chronic (2) Posttraumatic stress disorder Problem: Chronic (3) Munchausen syndrome Problem: Chronic (4) Histrionic personality disorder Problem: Chronic (5) Acute UTI Problem: Acute (6) Encephalopathy acute Problem: Acute Description of Stay: ADMISSION DATE: 06/20/2017 DISCHARGE DATE: 06/23/2017 ADMISSION HPI BY SERJIO BAILEY: Mrs. Arriaza is a 71-yr-old W[place] pt of Dr. Aimee Medina with a PMH of: Angina at rest , Bladder tumor, CAD, Chronic Pain Syndrome, DM II, Glaucoma, HTN, HLD, IBS, VA & Osteoporosis. History is unobtainable from pt due to AMS and therefore her spouse, Addison Arriaza was reached by phone. He states that Mrs. Arriaza has had worsening confusion for the last 1-2 days. Her appetite has been very poor for the past 8 months and she has had on & off episodes of vomiting 30-40 minutes later after meals. He denies her having any fevers or chills. Today, she was complaining of abdominal pain and her confusion wasn't improving and so he called the EMS. At the ED, most oh her lab-work was otherwise unremarkable. The abdominal x-ray did not have any findings to suggest SBO, but moderate amount of stool was noted. The head CT also did not have any acute findings. However, she was found to have hypertenive urgency with BP of 225/100 and required IV Labetalol. The UA showed possible UTI. HOSPITAL COURSE: The patient was admitted to the hospital with acute encephalopathy, agitation and delirium. The patient was diagnosed with a UTI which was treated with nitrofurantoin. She was also found to have signs of dehydration secondary to poor PO intake and she was treated with IV fluid hydration. This was not reversed and the patient has presented with acute encephalopathy but I did not feel that her UTI or mild electrolyte abnormalities completely explained her presentation. Thus, our psychiatrist, Dr. Uribe, was consulted for further evaluation. As documented by Dr. Uribe, Judgment, orientation, abstract thinking, calculation and memory were totally absent. Her general fund of information was as barren as that possessed by a person who has lived under a rock for the past decade or so. It is my opinion that the great majority of these deficiencies were staged and dissimulated. Dr. [place] evaluation was consistent with the diagnoses of bipolar affective disorder, posttraumatic stress disorder, Munchausen syndrome and histrionic personality disorder. I discussed with the patients that her recurrent episodes of altered mental status, agitation and delirium seem to be psychiatric in etiology. The patient has been adamantly refused placement in a care facility. He also refused home health care. The patient was discharged home in stable condition on 06/23/2017. FOLLOW-UP APPOINTMENTS: - Follow-up with a provider in Internal Medicine within 1-2 weeks -Follow-up with Dr. Uribe within 1 month -Check BMP within 1 week NEW OR CHANGED MEDICATIONS: -Nitrofurantoin [Macrobid] 100mg PO BID X 2 days DISCONTINUED MEDICATIONS: None RADIOLOGY REPORTS: Head CT without contrast on 06/30/2017 showed: No acute intracranial process. Abdominal x-ray flat with upright on 06/20/2017 showed: Nonspecific bowel gas pattern. Abdominal x-ray flat and upright on 06/22/2017 showed: Abnormal but nonspecific bowel gas pattern. No definite signs of intestinal obstruction or free air. Procedures Performed: none Discharge Disposition: Home self care Disposition: Home self-care Condition: Stable Discharge Activity: Activity as tolerated Discharge Diet: Consistent carbs, Resume usual diet Referrals: Aimee Medina DO [Primary Care Provider] - Problem Oriented Discharge Instructions to Patient/Family: Confusion, Hypertension, [id number] Additional Patient Instructions (free text): TCM at discharge. Call Becca at [phone] when discharged. Follow-up with a provider in Internal Medicine within 1-2 weeks Follow-up with Dr. Uribe within 1 month Prescriptions (Any new or edited meds): Nitrofurantoin/Nitrofuran Mac [Macrobid] 100 mg PO BID #4 capsule Complete Home Medications List: Complete Home Medication List: Nitroglycerin 0.4 mg SL [id number] PRN 01/25/16 traMADol HCL [Ultram] 50 mg PO Q12H PRN 01/25/16 Atorvastatin Calcium [Lipitor] 80 mg PO HS tablet 01/28/16 Brimonidine Tartrate [Brimonidine 0.2% Ophthalmic Solution] 1 drop EACHEYE BID 06/14/16 Gabapentin [Neurontin] 900 mg PO TID 06/14/16 Levothyroxine Sodium [Synthroid] 88 mcg PO DAILY 06/14/16 Oxybutynin Chloride [Ditropan] 5 mg PO TID 06/14/16 Ranolazine [Ranexa] 500 mg PO BID 01/05/17 Metoprolol Succinate [Toprol Xl] 50 mg PO DAILY 05/01/17 Insulin Glargine,Hum.rec.anlog [Lantus] 18 units SC HS 06/20/17 Insulin Lispro [Humalog] 8 units SC TIDWM 06/20/17 Lisinopril [Zestril] 2.5 mg PO DAILY 06/20/17 Polyethylene Glycol 3350 [Miralax] 17 gm PO DAILY 06/20/17 Sennosides/Docusate Sodium [Senna-S Tablet] 1 each PO TID 06/20/17 Tobramycin/Dexamethasone [Tobramycin-Dexameth Ophth Susp] 5 ml OP QID 06/20/17 Nitrofurantoin/Nitrofuran Mac [Macrobid] 100 mg PO BID #4 capsule 06/23/17 Amb Orders for Discharge: Basic Metabolic Panel Time Frame: 1 Week, Location: Determined By Patient
[2017-06-23] MEDS ORDERED: POTASSIUM CHLORIDE 20 MEQ TABLET.SA PO ONE (13:00)
[2017-06-23] MEDS ORDERED: HALOPERIDOL 1 MG TABLET PO SCH (21:00)
== END 2017-06-23 13:45 | disposition home or self-care (01) | DRG 689 ==
LOC: ER 14:41 → OBSVTOIN 18:11 → MS 18:11 → INTOOBSV 18:11 → OBSVTOIN 06-21 17:20
PROVIDERS: ADMIT Internal Medicine; ATTEND Internal Medicine
PROC: 0T9B7ZZ Drainage of Bladder, Via Natural or Artificial Opening (ICD-10-PCS; principal; 2017-06-20)
DX: N39.0 Urinary tract infection, site not specified (principal); G93.40 Encephalopathy, unspecified; I16.0 Hypertensive urgency; E11.9 Type 2 diabetes mellitus without complications; K21.9 Gastro-esophageal reflux disease without esophagitis; E78.5 Hyperlipidemia, unspecified; E86.0 Dehydration
CPT/HCPCS: 36415; 51701; 70450; 74020; 80048; 80053; 81001; 82009; 82150; 84484; 85025; 85027; 87086; 93005; 96374; 97116; 97162; 97165; 97530; 99284; G0378

== ENCOUNTER 2017-07-09 06:19 | Emergency (ER) | payer MEDICARE, BC ==
[2017-07-09] MEDS ORDERED: ASPIRIN 81 MG TAB.CHEW PO ONE (06:28)
[2017-07-09] MEDS ORDERED: ASPIRIN 81 MG TAB.CHEW ONE (06:31)
[2017-07-09] MEDS ORDERED: NITROGLYCERIN 0.4 MG/TAB BTL SL ONE (06:34)
[2017-07-09 06:48] LABS: Hematocrit 33.4 % (37.0-47.0); Hemoglobin 11.3 gm/dL (12.5-16.0); Mean Cell Volume 86.8 fl (78-100); Mean Corpuscular Hemoglobin 29.4 pg (27-31); Mean Corpuscular Hgb Conc 33.8 g/dl (32-36); Mean Platelet Volume 10.9 fl (6.0-9.5); Neutrophil # 3.1 K/mm3 (1.3-6.0); Platelet Count 141 K/mm3 (150-450); Red Blood Count 3.85 M/mm3 (4.2-5.4); Red Cell Distribution Width 12.8 % (11.5-14.0); White Blood Count 6.2 K/mm3 (4.0-10.5)
[2017-07-09 06:57] LABS: Prothrombin Time (Patient) 10.1 Seconds (9.4-11.4)
[2017-07-09 06:58] LABS: INR 0.97 INR (0.90-1.10)
[2017-07-09] MEDS ORDERED: MAG HYDROX/ALUMINUM HYD/SIMETH 30 ML UDC PO ONE (07:00)
[2017-07-09] MEDS ORDERED: LIDOCAINE HCL 20 ML UDC PO ONE (07:00)
[2017-07-09 07:08] LABS: Albumin * 2.5 gm/dl (3.4-5.0); BUN/Creatinine Ratio 10.1 (9.0-21.6); Bilirubin, Total 0.3 mg/dL (0.0-1.1); Ca. Corrected For Albumin 9.2 mg/dL (8.4-10.2); Calcium * 8.3 mg/dL (7.9-10.9); Carbon Dioxide 29.6 mmol/L (24-32.6); Potassium 3.6 mmol/L (3.4-4.6); Total Protein 5.4 gm/dL (6.2-8.2); Troponin I 0.03 ng/ml (0.00-0.10)
--- NOTE | 2017-07-09 07:13 | ERNOTE ---
<Suly Lawrence - Last Filed: 07/09/17 07:19> Medical Problem HPI - General Chief Complaint: Chest Pain Time Seen by Provider: 07/09/17 06:20 Source: patient Exam Limitations: no limitations - Immun/Allergies/Home Medications Immunizations: IMMUNIZATION HX Immunizations Up to Date Yes History of Influenza Vaccine Yes Hx Pneumococcal Vaccination Yes Allergies/Adverse Reactions: Allergies hydromorphone HCl [From Dilaudid] Allergy (Intermediate, Verified 07/09/17 06:28 ) Other Altered mental status codeine [Codeine] Allergy (Mild, Verified 07/09/17 06:28) Itching latex Allergy (Mild, Verified 07/09/17 06:28) Other Blisters clidinium [Clidinium] Allergy (Unknown, Verified 07/09/17 06:28) escitalopram Allergy (Unknown, Verified 07/09/17 06:28) opoid Adverse Reaction (Severe, Uncoded 07/09/17 06:28) Other Altered mental status Home Medications: HOME MEDICATIONS Nitroglycerin 0.4 mg SL [id number] PRN 01/25/16 [Last Taken 05/08/17] traMADol HCL [Ultram] 50 mg PO Q12H PRN 01/25/16 [Last Taken 05/08/17] Atorvastatin Calcium [Lipitor] 80 mg PO HS tablet 01/28/16 [Last Taken 05/08/17 ] Brimonidine Tartrate [Brimonidine 0.2% Ophthalmic Solution] 1 drop EACHEYE BID 06/14/16 [Last Taken 05/08/17] Gabapentin [Neurontin] 900 mg PO TID 06/14/16 [Last Taken 05/08/17] Levothyroxine Sodium [Synthroid] 88 mcg PO DAILY 06/14/16 [Last Taken 05/08/17] Oxybutynin Chloride [Ditropan] 5 mg PO TID 06/14/16 [Last Taken 05/08/17] Ranolazine [Ranexa] 500 mg PO BID 01/05/17 [Last Taken 05/08/17] Metoprolol Succinate [Toprol Xl] 50 mg PO DAILY 05/01/17 [Last Taken 05/08/17 18 :00] Insulin Glargine,Hum.rec.anlog [Lantus] 18 units SC HS 06/20/17 [Last Taken Unknown] Insulin Lispro [Humalog] 8 units SC TIDWM 06/20/17 [Last Taken Unknown] Lisinopril [Zestril] 2.5 mg PO DAILY 06/20/17 [Last Taken Unknown] Polyethylene Glycol 3350 [Miralax] 17 gm PO DAILY 06/20/17 [Last Taken Unknown] Sennosides/Docusate Sodium [Senna-S Tablet] 1 each PO TID 06/20/17 [Last Taken Unknown] Tobramycin/Dexamethasone [Tobramycin-Dexameth Ophth Susp] 5 ml OP QID 06/20/17 [ Last Taken Unknown] Nitrofurantoin/Nitrofuran Mac [Macrobid] 100 mg PO BID #4 capsule 06/23/17 [ Last Taken Unknown] Famotidine [Pepcid] 40 mg PO HS #30 tab 07/09/17 [Last Taken Unknown] - History of Present History Narrative: pt comes in for chest pain which began two hours prior to presentation to ED. She states it radiates to the mid back region. She denies any nausea vomiting diaphoresis or palpitations. She has history of CAD Review of Systems - Review of Systems Constitutional: Present: no symptoms reported EYE: Present: no symptoms reported ENT: Present: no symptoms reported Respiratory: Present: no symptoms reported Cardiology: Present: See HPI Gastrointestinal/Abdominal: Present: no symptoms reported Genitourinary: Present: no symptoms reported Neurological: Present: no symptoms reported All Other Systems: All systems neg except as marked - she also feels anxious - Patient's Past Medical History Patient History - Medical: Chronic Pain, Diabetes Type 2, Fibromyalgia, Glaucoma , Hypothyroidism, Osteoarthritis, Osteoporosis, Other Patient History - Cardiac/Respiratory: Angina, Coronary Heart Disease, Hypertension, Hyperlipidemia, Myocardial Infarction Patient History - Cancer: No Hx of Cancer Patient History - Surgical Procedures: Cardiac stent, Hysterectomy, Tubal Ligation, Other, Hernia Repair Patient History - Other: None - Family History Mother Family History - Medical: , Diabetes Type 2 Family History - Cardiac/Respiratory: No pertinent hx Family History - Cancer: No pertinent family hx Father Family History - Medical: , Diabetes Type 2 Family History - Cardiac/Respiratory: No pertinent hx Family History - Cancer: No pertinent family hx Sister Family History - Medical: Diabetes Type 2 Family History - Cardiac/Respiratory: No pertinent hx Family History - Cancer: No pertinent family hx Brother Family History - Medical: No pertinent hx Family History - Cardiac/Respiratory: No pertinent hx Family History - Cancer: Melanoma - Social History Living Situations: spouse Abuse History: No History of abuse Psych History: No pertinent hx Does anyone smoke in the home?: No Smoking Status: Former smoker Have you smoked in the past 12 months: No Do you dip or chew tobacco: No Alcohol Use: none Drug Use: none - Immunizations Immunizations Up to Date: Yes Hx Pneumococcal Vaccination: Yes History of Influenza Vaccine: Yes Physical Exam - Physical Exam General Appearance: Present: wd/wn, alert, no apparent distress Head Exam: Present: normal inspection, no evidence of injury Ears, Nose, Throat: Present: normal ENT inspection, normal pharynx Neck: Present: normal inspection, nontender Respiratory: Present: no respiratory distress, normal breath sounds, no accessory muscle use, chest nontender, lungs clear Cardiovascular/Chest: Present: regular rate, rhythm, no murmur, normal peripheral pulses Neurological Exam: Present: alert, oriented, normal mood/affect, other - she is anxious ED Progress - Results and Orders Patient's Lab Results:: I have reviewed the patient's lab results. - Vital Signs Patient's Vital Signs:: I have reviewed the patient's vital signs. Vital Signs: Vital Signs 07/09/17 07/09/17 07/09/17 06:22 06:39 06:45 Pulse Rate 74 69 68 Respiratory 20 11 L Rate Blood Pressure 176/76 163/74 O2 Sat by Pulse 98 99 Oximetry 07/09/17 07:06 Pulse Rate 65 Respiratory 12 Rate Blood Pressure 181/62 O2 Sat by Pulse 100 Oximetry - EKG EKG read: Interp. by me - X-Ray X-Ray #1 X-Ray: chest - Progress/Reassessment Chief Complaint: Chest Pain - Transfer of Care Physician Sign Out: Suly Lawrence Receiving Physician: Ricco Forrester Pending Results: CT/MRI results Plan - Plan Plan: pt has chest pain however chest pain improved with three Nitro's, she is allergic to Morphine, was given ASA, also was placed on O2. EKG is normal sinus , Her first set of enzymes are normal. She also had some GI cocktail and it helped as well. d-dimer is positive at this time. Departure - Departure Clinical Impression: Chest pain Qualifiers: Chest pain type: unspecified Qualified Code(s): R07.9 - Chest pain, unspecified GERD (gastroesophageal reflux disease) Qualifiers: Esophagitis presence: with esophagitis Qualified Code(s): K21.0 - Gastro- esophageal reflux disease with esophagitis Disposition: Home self-care Condition: Good Instructions: Indigestion, [id number], Heartburn, [id number] Prescriptions: Famotidine [Pepcid] 40 mg PO HS #30 tab <PhiljankiRicco - Last Filed: 07/09/17 09:49> Medical Problem HPI - Immun/Allergies/Home Medications Immunizations: IMMUNIZATION HX Immunizations Up to Date Yes History of Influenza Vaccine Yes Hx Pneumococcal Vaccination Yes ED Progress - Vital Signs Vital Signs: Vital Signs 07/09/17 07/09/17 07/09/17 06:22 06:39 06:45 Pulse Rate 74 69 68 Respiratory 20 11 L Rate Blood Pressure 176/76 163/74 O2 Sat by Pulse 98 99 Oximetry 07/09/17 07/09/17 07/09/17 07:06 07:09 07:57 Pulse Rate 65 61 65 Respiratory 12 12 18 Rate Blood Pressure 181/62 168/50 192/67 O2 Sat by Pulse 100 99 100 Oximetry 07/09/17 07/09/17 07/09/17 08:00 08:11 08:26 Pulse Rate 61 52 L 60 Respiratory 16 14 14 Rate Blood Pressure 189/64 192/66 194/68 O2 Sat by Pulse 100 99 100 Oximetry 07/09/17 07/09/17 07/09/17 08:42 08:51 08:57 Pulse Rate 59 L 60 61 Respiratory 15 14 Rate Blood Pressure 197/67 194/65 O2 Sat by Pulse 100 100 Oximetry 07/09/17 09:25 Pulse Rate 62 Respiratory 14 Rate Blood Pressure 193/66 O2 Sat by Pulse 97 Oximetry Plan - Plan Plan: Patient states she was vastly improved with the GI cocktail and most the pain was epigastric anyway. Patient will be started on Pepcid and she'll follow-up with her family physician. I suggested that she get an outpatient stress test as the patient refuses to stay in the emergency department and wants to go home.
[2017-07-09 09:26] VITALS: BP 193/66
== END 2017-07-09 09:56 | disposition home or self-care (01) ==
LOC: ER 06:19
DX: R07.9 Chest pain, unspecified (principal); K21.0 Gastro-esophageal reflux disease with esophagitis

== ENCOUNTER 2017-07-14 15:55 | Inpatient (IN) | payer MEDICARE, BC ==
[2017-07-14] MEDS ORDERED: NORMAL SALINE 1,000 ML IV ONE (16:04)
[2017-07-14 16:16] LABS: Urine Appearance Clear; Urine Bilirubin Negative (NEGATIVE); Urine Blood 150 /ul (NEGATIVE); Urine Color Yellow; Urine Ketone 15 mg/dL (NEGATIVE); Urine Nitrite Negative (NEGATIVE); Urine Protein 100 mg/dL (NEGATIVE); Urine Specific Gravity 1.025 SP.GR. (1.005-1.010); Urine Urobilinogen Normal (NORMAL); Urine pH 6.5 pH (5.0-7.0)
[2017-07-14 16:17] LABS: Urine Bacteria TRACE
[2017-07-14 16:23] LABS: Hematocrit 38.5 % (37.0-47.0); Hemoglobin 13.1 gm/dL (12.5-16.0); Mean Cell Volume 85.4 fl (78-100); Mean Platelet Volume 10.7 fl (6.0-9.5); Neutrophil # 5.4 K/mm3 (1.3-6.0); Neutrophil % 79.8 % (42-75.0); Platelet Count 148 K/mm3 (150-450); Red Blood Count 4.51 M/mm3 (4.2-5.4); Red Cell Distribution Width 12.9 % (11.5-14.0); White Blood Count 6.8 K/mm3 (4.0-10.5)
[2017-07-14] MEDS ORDERED: LORazepam 2 MG/ML DISP.SYRIN IV ONE ×2 (16:31→17:05)
[2017-07-14 16:38] LABS: Troponin I Less than 0.017 ng/ml (0.00-0.10)
[2017-07-14] MEDS ORDERED: LORazepam 2 MG/ML DISP.SYRIN ONE (16:47)
[2017-07-14 16:57] LABS: Albumin * 2.7 gm/dl (3.4-5.0); Anion Gap 19.4 mmol/L (6.8-13.8); BUN/Creatinine Ratio 13.3 (9.0-21.6); Bilirubin, Total 0.5 mg/dL (0.0-1.1); Ca. Corrected For Albumin 9.1 mg/dL (8.4-10.2); Calcium * 8.4 mg/dL (7.9-10.9); Carbon Dioxide 19.8 mmol/L (24-32.6); Potassium 4.2 mmol/L (3.4-4.6); Total Protein 6.1 gm/dL (6.2-8.2)
[2017-07-14] MEDS ORDERED: NORMAL SALINE 1,000 ML IV PRN ×2 (16:58→18:09)
--- NOTE | 2017-07-14 17:49 | ERNOTE ---
Neuro HPI ER Record Date of Service: 07/14/17 Presenting Symptoms: weakness, confusion Time Seen by Provider: 07/14/17 16:05 Source: patient, family, EMS Exam Limitations: other - alterred medical status Immunizations: IMMUNIZATION HX Immunizations Up to Date Yes History of Influenza Vaccine Yes Hx Pneumococcal Vaccination Yes Allergies/Adverse Reactions: Allergies Allergy/AdvReac Type Severity Reaction Status Date / Time hydromorphone HCl Allergy Intermediate Other Verified 07/09/17 06:28 [From Dilaudid] codeine [Codeine] Allergy Mild Itching Verified 07/09/17 06:28 latex Allergy Mild Other Verified 07/09/17 06:28 clidinium [Clidinium] Allergy Unknown Verified 07/09/17 06:28 escitalopram Allergy Unknown Verified 07/09/17 06:28 opoid AdvReac Severe Other Uncoded 07/09/17 06:28 Home Medications: HOME MEDICATIONS Nitroglycerin 0.4 mg SL [id number] PRN 01/25/16 [Last Taken 05/08/17] traMADol HCL [Ultram] 50 mg PO Q12H PRN 01/25/16 [Last Taken 05/08/17] Atorvastatin Calcium [Lipitor] 80 mg PO HS tablet 01/28/16 [Last Taken 05/08/17 ] Brimonidine Tartrate [Brimonidine 0.2% Ophthalmic Solution] 1 drop EACHEYE BID 06/14/16 [Last Taken 05/08/17] Gabapentin [Neurontin] 900 mg PO TID 06/14/16 [Last Taken 05/08/17] Levothyroxine Sodium [Synthroid] 88 mcg PO DAILY 06/14/16 [Last Taken 05/08/17] Oxybutynin Chloride [Ditropan] 5 mg PO TID 06/14/16 [Last Taken 05/08/17] Ranolazine [Ranexa] 500 mg PO BID 01/05/17 [Last Taken 05/08/17] Metoprolol Succinate [Toprol Xl] 50 mg PO DAILY 05/01/17 [Last Taken 05/08/17 18 :00] Insulin Glargine,Hum.rec.anlog [Lantus] 18 units SC HS 06/20/17 [Last Taken Unknown] Insulin Lispro [Humalog] 8 units SC TIDWM 06/20/17 [Last Taken Unknown] Lisinopril [Zestril] 2.5 mg PO DAILY 06/20/17 [Last Taken Unknown] Polyethylene Glycol 3350 [Miralax] 17 gm PO DAILY 06/20/17 [Last Taken Unknown] Sennosides/Docusate Sodium [Senna-S Tablet] 1 each PO TID 06/20/17 [Last Taken Unknown] Tobramycin/Dexamethasone [Tobramycin-Dexameth Ophth Susp] 5 ml OP QID 06/20/17 [ Last Taken Unknown] Nitrofurantoin/Nitrofuran Mac [Macrobid] 100 mg PO BID #4 capsule 06/23/17 [ Last Taken Unknown] Famotidine [Pepcid] 40 mg PO HS #30 tab 07/09/17 [Last Taken Unknown] - History of Present Illness Narrative: ems reports family tells them patient was normal until trhee days ago when patient became progressivly weaker and confused, recent hx of uti Onset: cannot confirm onset Severity: moderate Context: other - unknown - Character of Deficits New weakness: Present: general (diffuse) Additional Deficits: Present: decrease ability to stand, decrease ability to walk Baseline Cognition: Present: alert, oriented x 4 Baseline Gait: Present: walks w/o assistance Associated Symptoms: Reports: altered mental status, disoriented, trouble concentrating Prior Treament: Reports: recently seen, treated by physician Review of Systems - Narrative Narrative: unable to get ros due to patients confusion - Review of Systems Constitutional: Present: weakness, fatigue, malaise - Patient's Past Medical History Patient History - Medical: Chronic Pain, Diabetes Type 2, Fibromyalgia, Glaucoma , Hypothyroidism, Osteoarthritis, Osteoporosis, Other Patient History - Cardiac/Respiratory: Angina, Coronary Heart Disease, Hypertension, Hyperlipidemia, Myocardial Infarction Patient History - Cancer: No Hx of Cancer Patient History - Surgical Procedures: Cardiac stent, Hysterectomy, Tubal Ligation, Other, Hernia Repair Patient History - Other: None - Family History Mother Family History - Medical: , Diabetes Type 2 Family History - Cardiac/Respiratory: No pertinent hx Family History - Cancer: No pertinent family hx Father Family History - Medical: , Diabetes Type 2 Family History - Cardiac/Respiratory: No pertinent hx Family History - Cancer: No pertinent family hx Sister Family History - Medical: Diabetes Type 2 Family History - Cardiac/Respiratory: No pertinent hx Family History - Cancer: No pertinent family hx Brother Family History - Medical: No pertinent hx Family History - Cardiac/Respiratory: No pertinent hx Family History - Cancer: Melanoma - Social History Living Situations: significant other Abuse History: No History of abuse Psych History: No pertinent hx Does anyone smoke in the home?: No Smoking Status: Smoker, status unknown Have you smoked in the past 12 months: No Do you dip or chew tobacco: No Alcohol Use: none Drug Use: none - Immunizations Immunizations Up to Date: Yes Hx Pneumococcal Vaccination: Yes History of Influenza Vaccine: Yes Physical Exam - Physical Exam General Appearance: Present: mild distress, other - alterred mental status Head Exam: Present: normal inspection, no evidence of injury Eye Exam: Normal inspection: bilateral, PERRL: bilateral, EOMI: bilateral Ears, Nose, Throat: Present: normal ENT inspection Neck: Present: normal inspection, nontender Respiratory: Present: no respiratory distress, normal breath sounds, no accessory muscle use, chest nontender, lungs clear Cardiovascular/Chest: Present: regular rate, rhythm, no murmur, normal peripheral pulses Peripheral Pulses: N=norm/S=strong/W=weak/B=bound/A=absent: Carotid (R): Normal , Carotid (L): Normal, Radial (R): Normal, Radial (L): Normal, Femoral (R): Normal, Femoral (L): Normal, Dorsalis-pedis (R): Normal, Dorsalis-pedis (L): Normal Gastrointestinal/Abdominal: Present: normal bowel sounds, nontender, nondistended, soft, no organomegaly Back Exam: Present: normal inspection, normal range of motion, no CVA tenderness , no vertebral tenderness Extremity Exam: Present: normal inspection, non-tender, normal range of motion, no edema Neurological Exam: Present: disoriented to person, disoriented to time, disoriented to place, disoriented to situation DTR: N=norm/NB=norm/brisk/A=abs/DD=dull/dimin/HC=hyperactive: Bicep (R): Normal , Bicep (L): Normal, Tricep (R): Normal, Tricep (L): Normal, Knee (R): Normal Skin Exam: Present: normal color, warm/dry Lymphatic Exam: Present: no adenopathy [place] Coma Scale - Assess Eye Opening: Spontaneous Motor: Obeys Commands Verbal: Confused - Total Coma Scale Total: 14 ED Progress - Results and Orders Patient's Lab Results:: I have reviewed the patient's lab results. - Vital Signs Patient's Vital Signs:: I have reviewed the patient's vital signs. Vital Signs: Vital Signs 07/14/17 07/14/17 15:56 16:04 Temperature 36.6 C Pulse Rate 103 H 83 Respiratory 28 H Rate Blood Pressure 170/72 O2 Sat by Pulse 100 Oximetry - EKG EKG: NSR EKG read: Interp. by me - CT/Ultrasound CT/Ultrasound Narrative: ct; no acute process - Progress/Reassessment Chief Complaint: Altered Mental Status Progress:: Unchanged Progress Note-Subjective: 07/14/17 18:00 condition unchanged, discussed labs and x-rays with dr monteiro who accepts patient for admission - Transfer of Care Receiving Physician: Abelino Monteiro Pending Results: Labs - blood cultures Expected Disposition: Admit Departure Clinical Impression: Delirium, acute - Departure Disposition: [facility] Condition: Serious
--- NOTE | 2017-07-14 20:09 | HP ---
Chief Complaint - Chief Complaint Date of Service: 07/14/17 Time of Service: 20:06 Chief Complaint: confusion, UTI History of Present Illness: 71 years old female adm to the hospital from ER with reports of confusion, unable to obtain information from pt as she is confused and mourns constantly. Information obtained from ER report and previous records. 06/20/17 pt was last adm for UTi and confusion , she is been admit again with reports of similar s/s per report to the ER. In ER CT head: no acute intra-cranial abnormality , CXR no acute cardiopulmonary process.Lactic acid 4.0--->1.9, urinalysis + for UTI, urine culture and blood culture pending.Antibiotic was given in ER and IVF rehydrate. PMH of: Angina at rest, Bladder tumor, CAD, Chronic Pain Syndrome, DM II, Glaucoma, HTN, HLD, IBS, AL & Osteoporosis. - Patient's Past Medical History Patient History - Medical: Chronic Pain, Diabetes Type 2, Fibromyalgia, Glaucoma , Hypothyroidism, Osteoarthritis, Osteoporosis, Other Patient History - Cardiac/Respiratory: Angina, Coronary Heart Disease, Hypertension, Hyperlipidemia, Myocardial Infarction Patient History - Cancer: No Hx of Cancer Patient History - Surgical Procedures: Cardiac stent, Hysterectomy, Tubal Ligation, Other, Hernia Repair Patient History - Other: None - Family History Mother Family History - Medical: , Diabetes Type 2 Family History - Cardiac/Respiratory: No pertinent hx Family History - Cancer: No pertinent family hx Father Family History - Medical: , Diabetes Type 2 Family History - Cardiac/Respiratory: No pertinent hx Family History - Cancer: No pertinent family hx Sister Family History - Medical: Diabetes Type 2 Family History - Cardiac/Respiratory: No pertinent hx Family History - Cancer: No pertinent family hx Brother Family History - Medical: No pertinent hx Family History - Cardiac/Respiratory: No pertinent hx Family History - Cancer: Melanoma - Social History Living Situations: significant other Abuse History: No History of abuse Psych History: No pertinent hx Does anyone smoke in the home?: No Smoking Status: Smoker, status unknown Have you smoked in the past 12 months: No Do you dip or chew tobacco: No Alcohol Use: none Drug Use: none - Immunizations Immunizations Up to Date: Yes Hx Pneumococcal Vaccination: Yes History of Influenza Vaccine: Yes Review Of Systems (GEN) - Review of Systems Additional Comments: Due to pt confusion unable to obtain information Immunizations: IMMUNIZATION HX Immunizations Up to Date Yes History of Influenza Vaccine Yes Hx Pneumococcal Vaccination Yes Allergies/Adverse Reactions: Allergies Allergy/AdvReac Type Severity Reaction Status Date / Time hydromorphone HCl Allergy Intermediate Other Verified 07/14/17 18:13 [From Dilaudid] codeine [Codeine] Allergy Mild Itching Verified 07/14/17 18:13 latex Allergy Mild Other Verified 07/14/17 18:13 clidinium [Clidinium] Allergy Unknown Verified 07/14/17 18:13 escitalopram Allergy Unknown Verified 07/14/17 18:13 opoid AdvReac Severe Other Uncoded 07/14/17 18:13 Home Medications: HOME MEDICATIONS Nitroglycerin 0.4 mg SL [id number] PRN 01/25/16 [Last Taken 05/08/17] traMADol HCL [Ultram] 50 mg PO QID PRN 01/25/16 [Last Taken 05/08/17] Atorvastatin Calcium [Lipitor] 80 mg PO HS tablet 01/28/16 [Last Taken 05/08/17 ] Brimonidine Tartrate [Brimonidine 0.2% Ophthalmic Solution] 1 drop EACHEYE BID 06/14/16 [Last Taken 05/08/17] Gabapentin [Neurontin] 900 mg PO TID 06/14/16 [Last Taken 05/08/17] Levothyroxine Sodium [Synthroid] 88 mcg PO DAILY 06/14/16 [Last Taken 05/08/17] Oxybutynin Chloride [Ditropan] 5 mg PO TID 06/14/16 [Last Taken 05/08/17] Metoprolol Succinate [Toprol Xl] 50 mg PO DAILY 05/01/17 [Last Taken 05/08/17 18 :00] Insulin Glargine,Hum.rec.anlog [Lantus] 18 units SC HS 06/20/17 [Last Taken Unknown] Insulin Lispro [Humalog] 8 units SC TIDWM 06/20/17 [Last Taken Unknown] Lisinopril [Zestril] 2.5 mg PO DAILY 06/20/17 [Last Taken Unknown] Polyethylene Glycol 3350 [Miralax] 17 gm PO DAILY 06/20/17 [Last Taken Unknown] Sennosides/Docusate Sodium [Senna-S Tablet] 1 each PO TID 06/20/17 [Last Taken Unknown] Tobramycin/Dexamethasone [Tobramycin-Dexameth Ophth Susp] 5 ml OP QID 06/20/17 [ Last Taken Unknown] Aspirin 81 mg PO DAILY 07/14/17 [Last Taken Unknown] Brimonidine Tartrate [Alphagan P 0.1% Ophthalmic Solution] 5 ml OP DAILY [Last Taken Unknown] Carboxymethyl/Glycerin/Poly80 [Refresh Optive Advanced Drops] 10 ml OP DAILY 12/29 [Last Taken Unknown] Clopidogrel Bisulfate [Plavix] 75 mg PO DAILY 07/14/17 [Last Taken Unknown] Furosemide [Lasix] 40 mg PO DAILY 07/14/17 [Last Taken Unknown] Venlafaxine HCl 75 mg PO TID 07/14/17 [Last Taken Unknown] Exam - Exam Vital Signs: Vital Signs - Last Taken Temp 36.7 C 07/14/17 19:20 Pulse 91 07/14/17 19:20 Resp 24 H 07/14/17 19:20 BP 191/63 07/14/17 19:20 Pulse Ox 100 07/14/17 19:20 Constitutional: Present: Well nourished, No distress, Other - uncooperative, Elderly ENT Exam: Present: hearing grossly normal, other - tardive dyskinesia Eye Exam: bilateral eye: normal inspection Neck: Present: non-tender, full range of motion, normal inspection Back Exam: Present: normal inspection Breasts: Present: Exam deferred Respiratory: Present: chest non-tender, lungs clear, normal breath sounds, no respiratory distress Cardiovascular/Chest: Present: normal peripheral pulses, regular rate, rhythm, no chest tenderness Peripheral Pulses: dorsalis-pedis (R): 3+, dorsalis-pedis (L): 3+ Abdomen: Present: Normal bowel sounds, soft, nontender, nondistended /Rectal: Present: Exam deferred Extremity: Present: normal range of motion, non-tender, normal inspection, no pedal edema Skin Exam: Present: normal color, warm/dry Lymphatic: Present: no adenopathy Neurologic: Present: no motor/sensory deficits, alert Eye contact: Present: avoids eye contact Thoughts: Present: no apparent hallucination Diagnostic Studies: Laboratory Results WBC 6.8 K/mm3 (4.0-10.5) 07/14/17 16:07 RBC 4.51 M/mm3 (4.2-5.4) 07/14/17 16:07 Hgb 13.1 gm/dL (12.5-16.0) 07/14/17 16:07 Hct 38.5 % (37.0-47.0) 07/14/17 16:07 MCV 85.4 fl (78-100) 07/14/17 16:07 MCH 29.0 pg (27-31) 07/14/17 16:07 MCHC 34.0 g/dl (32-36) 07/14/17 16:07 RDW 12.9 % (11.5-14.0) 07/14/17 16:07 Plt Count 148 K/mm3 (150-450) L 07/14/17 16:07 MPV 10.7 fl (6.0-9.5) H 07/14/17 16:07 Immature Gran % (Auto) 0.30 % (0.001-0.429) 07/14/17 16:07 Immature Gran # (Auto) 0.02 K/mm3 (0.000-0.0310) 07/14/17 16:07 Neutrophils % 79.8 % (42-75.0) H 07/14/17 16:07 Lymphocytes % 15.1 % (20-51) L 07/14/17 16:07 Monocytes % 4.0 % (0.0-9) 07/14/17 16:07 Eosinophils % 0.1 % (0.0-3.0) 07/14/17 16:07 Basophils % 0.7 % (0.0-1.0) 07/14/17 16:07 Nucleated RBC % 0.0 k/mm3 (0-1) 07/14/17 16:07 Neutrophils # 5.4 K/mm3 (1.3-6.0) 07/14/17 16:07 Lymphocytes # 1.0 k/mm3 (1.5-3.5) L 07/14/17 16:07 Monocytes # 0.3 k/mm3 (0.0-1.0) 07/14/17 16:07 Eosinophils # 0.0 k/mm3 (0.0-0.7) 07/14/17 16:07 Absolute Basophils 0.1 k/mm3 (0.0-0.1) 07/14/17 16:07 Sodium 140 mmol/L (132-142) 07/14/17 16:07 Plasma Sodium 144 mmol/L (130-142) H 07/14/17 16:07 Potassium 4.2 mmol/L (3.4-4.6) 07/14/17 16:07 Chloride 105 mmol/L (97-106) 07/14/17 16:07 Carbon Dioxide 19.8 mmol/L (24-32.6) L 07/14/17 16:07 Anion Gap 19.4 mmol/L (6.8-13.8) H 07/14/17 16:07 BUN 17 mg/dL (3-23) D 07/14/17 16:07 Creatinine 1.28 mg/dL (0.4-1.4) 07/14/17 16:07 Est GFR (Non-Af Amer) 44 mL/min (60-130) L D 07/14/17 16:07 BUN/Creatinine Ratio 13.3 (9.0-21.6) 07/14/17 16:07 Random Glucose 321 mg/dL (70-110) H 07/14/17 16:07 Lactic Acid, Venous 1.9 mmol/L (0.4-1.9) 07/14/17 18:50 Calcium 8.4 mg/dL (7.9-10.9) 07/14/17 16:07 Calcium Adj for Albumin 9.1 mg/dL (8.4-10.2) 07/14/17 16:07 Total Bilirubin 0.5 mg/dL (0.0-1.1) 07/14/17 16:07 AST 14 U/L (0-48) 07/14/17 16:07 ALT 14 U/L (19-67) L 07/14/17 16:07 Alkaline Phosphatase 84 U/L (50-170) 07/14/17 16:07 Troponin I Less than 0.017 ng/ml (0.00-0.10) 07/14/17 16:07 C-Reactive Prot, Quant Less than 0.2 mg/dL (0.0-0.9) 07/14/17 16:07 Total Protein 6.1 gm/dL (6.2-8.2) L 07/14/17 16:07 Albumin 2.7 gm/dl (3.4-5.0) L 07/14/17 16:07 Procalcitonin Less than 0.05 ng/mL (0.05-0.50) L 07/14/17 16:07 Urine Color Yellow 07/14/17 16:02 Urine Appearance Clear 07/14/17 16:02 Urine pH 6.5 pH (5.0-7.0) 07/14/17 16:02 Ur Specific [place] 1.025 SP.GR. (1.005-1.010) 07/14/17 16:02 Urine Protein 100 mg/dL (NEGATIVE) H 07/14/17 16:02 Urine Glucose (UA) 100 mg/dL (NEGATIVE) H 07/14/17 16:02 Urine Ketones 15 mg/dL (NEGATIVE) 07/14/17 16:02 Urine Blood 150 /ul (NEGATIVE) H 07/14/17 16:02 Urine Nitrate Negative (NEGATIVE) 07/14/17 16:02 Urine Bilirubin Negative mg/dl (NEGATIVE) 07/14/17 16:02 Prot Sulfosalicylic Acd 4+ mg/dL (0) H 07/14/17 16:02 Urine Urobilinogen Normal EU/dl (NORMAL) 07/14/17 16:02 Ur Leukocyte Esterase 25 /ul (NEGATIVE) H 07/14/17 16:02 Urine RBC 10-25 /hpf (0-5) H 07/14/17 16:02 Urine WBC 5-10 /hpf (0-5) H 07/14/17 16:02 Ur Epithelial Cells None seen /hpf (0-5) 07/14/17 16:02 Urine Bacteria Trace (NONE) 07/14/17 16:02 Urine Culture Comments Culture to follow 07/14/17 16:02 Assessment/Plan - Narrative Narrative: Encephalopathy secondary to urosepsis On adm pt is confused with an infection seen on urinalysis Lactic acid 4.0---->1.9 CT head no acute abnormality, CXR no acute cardiopulmonary process. Continue with IVF and antibiotics Urine culture pending, pt was recently treated for UTI 06/20/17 Diabetes Accu-check AC+HS and sliding scale insulin May resume home dose of medications Consistent carb diet Hypertension On adm BP 191/63, however pt refuses to take her oral medication Continue to monitor BP, concern for possible hypertensive urgency as pt had been non-compliant with medication in the past. UTI- seen on urinalysis urine culture pending Continue with IV antibiotics. History of been non-compliance with treatment regimen pt was recently treated for UTI, there is a possibility she might have not completed the course of treatment after discharge. Code status: DNR GI ppx: pepcid DVT ppx:SCD and ambulate Time 35 minutes - Assessment/Plan (1) Encephalopathy acute Problem: Acute (2) UTI (urinary tract infection) Problem: Acute (3) Diabetes Problem: Chronic Qualifiers: Diabetes mellitus type: type 2 (4) HTN (hypertension) Problem: Chronic Qualifiers: Hypertension type: essential hypertension Qualified Code(s): I10 - Essential (primary) hypertension
[2017-07-14] MEDS: NORMAL SALINE 1,000 ML IV PRN (21:47)
[2017-07-15] MEDS ORDERED: NITROGLYCERIN 0.4 MG/TAB BTL SL PRN (02:14)
[2017-07-15] MEDS ORDERED: traMADol HCL 50 MG TABLET PO PRN (02:14)
[2017-07-15] MEDS ORDERED: hydrALAZINE HCL 20 MG/ML VIAL IV ONE (04:18)
[2017-07-15] MEDS: NORMAL SALINE 1,000 ML IV PRN ×3 (04:49→21:23)
[2017-07-15] MEDS ORDERED: hydrALAZINE HCL 20 MG/ML VIAL IV PRN (06:44)
[2017-07-15 06:45] LABS: Anion Gap 18.5 mmol/L (6.8-13.8); BUN/Creatinine Ratio 16.7 (9.0-21.6); Calcium * 8.5 mg/dL (7.9-10.9); Carbon Dioxide 16.1 mmol/L (24-32.6); Estimated Creat Clear 48.8; Potassium 4.6 mmol/L (3.4-4.6)
[2017-07-15] MEDS: GABAPENTIN 300 MG CAPSULE PO SCH ×3 (06:51→21:12)
[2017-07-15] MEDS ORDERED: INSULIN LISPRO 100 UNITS/ML VIAL SC SCH (07:30)
[2017-07-15] MEDS: VENLAFAXINE HCL 75 MG TABLET PO SCH ×4 (08:09→21:13)
[2017-07-15] MEDS: LEVOTHYROXINE SODIUM 88 MCG TABLET PO SCH (08:10)
[2017-07-15] MEDS: FAMOTIDINE 20 MG TABLET PO SCH (08:13)
[2017-07-15] MEDS: GENTAMICIN SULFATE 50 DROP BTL RIGHTEYE SCH ×4 (09:00→21:10)
[2017-07-15] MEDS ORDERED: ENALAPRILAT DIHYDRATE 2.5 MG/2 ML VIAL IV ONE (09:00)
[2017-07-15] MEDS ORDERED: BRIMONIDINE TARTRATE 50 DROP BTL OP SCH (09:00)
[2017-07-15] MEDS: TOBRAMYCIN SULFATE/DEXAMETH 25 DROP BTL OP SCH ×4 (09:00→21:12)
[2017-07-15] MEDS: LORazepam 2 MG/ML DISP.SYRIN IV PRN ×3 (09:04→21:39)
--- NOTE | 2017-07-15 10:56 | PN ---
Subjective - Date and Time Seen Date: 07/15/17 Time: 10:46 Subjective Narrative: Pt. very anxious as I'm seeing her, reports needing to through up, but can't give specifics as to what is wrong with her. She has history of dementia with behavioral issues in the past, but refuses to look at LTCF placement. she is not consolable, but does calm down when everyone leaves the room. Unable to get clear history or information from her. Objective - Review of Systems Generalized/Overall Review: Reports: No Symptoms Reported EENTM: Reports: Eye Pain, Blurred Vision Respiratory: Reports: No Symptoms Reported Cardiac: Reports: No Symptoms Reported Abdominal: Reports: No Symptoms Reported Genitourinary Symptoms: Reports: No Symptoms Reported Musculoskeletal Complaints: Reports: No Symptoms Reported Neurological: Reports: No Symptoms Reported Skin: Reports: No Symptoms Reported - Vitals Vitals: Last Vital Signs Temp 36.7 C 07/15/17 07:09 Pulse 88 07/15/17 08:58 Resp 18 07/15/17 07:09 BP 178/88 07/15/17 08:58 Pulse Ox 98 07/15/17 07:09 - Abnormal Lab Findings Abnormal Lab Findings: Abnormal Lab Results 07/15/17 Range/Units 05:44 Chloride 108 H (97-106) mmol/L Carbon Dioxide 16.1 L (24-32.6) mmol/L Anion Gap 18.5 H (6.8-13.8) mmol/L Random Glucose 288 H (70-110) mg/dL - EKG/Xray Findings EKG: other - EKG shows occ. PVS's. - Exam Constitutional: Present: Alert, Mild distress, Other - confused and anxious, Elderly ENT Exam: Present: hearing grossly normal, other - right eye is red with purulent discharge Respiratory: Present: lungs clear, normal breath sounds Cardiovascular/Chest: Present: regular rate, rhythm, no murmur Abdomen: Present: Normal bowel sounds, nontender, nondistended Extremity: Present: no calf tenderness Skin Exam: Present: normal color Appearance: Present: neat Eye contact: Present: increased rate of speech Thoughts: Present: paranoid Assessment/Plan - Problems/Diagnosis (1) Dementia Problem: Acute Qualifiers: Dementia type: unspecified type Dementia behavioral disturbance: with behavioral disturbance Qualified Code(s): F03.91 - Unspecified dementia with behavioral disturbance Narrative: may need placement though maybe she responds well to her at home, but is hard to redirect here. concern for her safety. (2) Acute UTI Problem: Acute Narrative: causing her to have encephalopathy with altered mental status. tx infection. (3) Altered mental status Problem: Acute Qualifiers: Altered mental status type: delirium Qualified Code(s): R41.0 - Disorientation, unspecified Narrative: complicated by underlying dementia with behavioural issues. (4) Diabetes type 2, uncontrolled Problem: Chronic Qualifiers: Diabetes mellitus complication status: with neurologic complications Diabetes mellitus complication detail: with unspecified neuropathy Diabetes mellitus termite exterminator helper insulin use: with termite exterminator helper use Qualified Code(s): E11.40 - Type 2 diabetes mellitus with diabetic neuropathy, unspecified; E11.65 - Type 2 diabetes mellitus with hyperglycemia; Z79.4 - [facility] (current) use of insulin Narrative: will continue lantus, increase as needed and add SSI while here. (5) HTN (hypertension) Problem: Chronic Qualifiers: Hypertension type: essential hypertension Qualified Code(s): I10 - Essential (primary) hypertension Narrative: refused meds last night. will do prn iv enalapril to control BP's as they are running high. (6) Encephalopathy acute Problem: Acute (7) Discharge planning issues Problem: Acute Narrative: anticipate her being her a minimum of 2 midnights. (8) Acute allergic conjunctivitis of right eye Problem: Acute
[2017-07-15] MEDS: CLOPIDOGREL BISULFATE 75 MG TABLET PO SCH (11:20)
[2017-07-15] MEDS: OXYBUTYNIN CHLORIDE 5 MG TABLET PO SCH ×3 (11:21→17:37)
[2017-07-15] MEDS: FUROSEMIDE 40 MG TABLET PO SCH (11:22)
[2017-07-15] MEDS: LISINOPRIL 2.5 MG TABLET PO SCH (11:22)
[2017-07-15] MEDS: METOPROLOL SUCCINATE 50 MG TABLET.SA PO SCH (11:23)
[2017-07-15] MEDS: SENNOSIDES/DOCUSATE SODIUM 1 TAB TABLET PO SCH ×3 (11:24→17:37)
[2017-07-15] MEDS: ASPIRIN 81 MG TAB.CHEW PO SCH (11:24)
[2017-07-15] MEDS: BRIMONIDINE TARTRATE 50 DROP BTL EACHEYE SCH ×2 (11:27→21:11)
[2017-07-15] MEDS: POLYVINYL ALCOHOL 150 DROP BTL EACHEYE SCH (11:49)
[2017-07-15] MEDS: INSULIN REGULAR, HUMAN 100 UNITS/ML VIAL SC SCH ×4 (11:56→21:11)
[2017-07-15] MEDS: POLYETHYLENE GLYCOL 3350 119 GM BTL PO SCH (14:29)
[2017-07-15] MEDS ORDERED: INSULIN GLARGINE,HUM.REC.ANLOG 100 UNITS/ML VIAL SC SCH ×2 (21:00)
[2017-07-15] MEDS ORDERED: ATORVASTATIN CALCIUM 40 MG TABLET PO SCH (21:00)
[2017-07-16] MEDS: GENTAMICIN SULFATE 50 DROP BTL RIGHTEYE SCH ×3 (00:19→09:35)
[2017-07-16] MEDS: GABAPENTIN 300 MG CAPSULE PO SCH (05:15)
[2017-07-16] MEDS: NORMAL SALINE 1,000 ML IV PRN (05:42)
[2017-07-16] MEDS ORDERED: FLUCONAZOLE 150 MG TABLET PO ONE (06:59)
[2017-07-16] MEDS: INSULIN REGULAR, HUMAN 100 UNITS/ML VIAL SC SCH (07:00)
[2017-07-16] MEDS: VENLAFAXINE HCL 75 MG TABLET PO SCH (07:01)
[2017-07-16] MEDS: LEVOTHYROXINE SODIUM 88 MCG TABLET PO SCH (07:02)
[2017-07-16] MEDS: POLYVINYL ALCOHOL 150 DROP BTL EACHEYE SCH (09:36)
[2017-07-16] MEDS: BRIMONIDINE TARTRATE 50 DROP BTL EACHEYE SCH (09:36)
[2017-07-16] MEDS: ASPIRIN 81 MG TAB.CHEW PO SCH (09:36)
[2017-07-16] MEDS: POLYETHYLENE GLYCOL 3350 119 GM BTL PO SCH (09:37)
[2017-07-16] MEDS: FUROSEMIDE 40 MG TABLET PO SCH (09:37)
[2017-07-16] MEDS: FAMOTIDINE 20 MG TABLET PO SCH (09:37)
[2017-07-16] MEDS: OXYBUTYNIN CHLORIDE 5 MG TABLET PO SCH (09:37)
[2017-07-16] MEDS: CLOPIDOGREL BISULFATE 75 MG TABLET PO SCH (09:38)
[2017-07-16] MEDS: METOPROLOL SUCCINATE 50 MG TABLET.SA PO SCH (09:38)
[2017-07-16] MEDS: LISINOPRIL 2.5 MG TABLET PO SCH (09:38)
[2017-07-16] MEDS: SENNOSIDES/DOCUSATE SODIUM 1 TAB TABLET PO SCH (09:38)
[2017-07-16] MEDS: TOBRAMYCIN SULFATE/DEXAMETH 25 DROP BTL OP SCH (09:39)
--- NOTE | 2017-07-16 10:32 | DS ---
(1) Dementia Problem: Acute Qualifiers: Dementia type: unspecified type Dementia behavioral disturbance: with behavioral disturbance Qualified Code(s): F03.91 - Unspecified dementia with behavioral disturbance (2) Acute UTI Problem: Acute (3) Altered mental status Problem: Acute Qualifiers: Altered mental status type: delirium Qualified Code(s): R41.0 - Disorientation, unspecified (4) Diabetes type 2, uncontrolled Problem: Chronic Qualifiers: Diabetes mellitus complication status: with neurologic complications Diabetes mellitus complication detail: with unspecified neuropathy Diabetes mellitus intermodal customer service insulin use: with intermodal customer service use Qualified Code(s): E11.40 - Type 2 diabetes mellitus with diabetic neuropathy, unspecified; E11.65 - Type 2 diabetes mellitus with hyperglycemia; Z79.4 - local company intermodal truck driver (current) use of insulin (5) HTN (hypertension) Problem: Chronic Qualifiers: Hypertension type: essential hypertension Qualified Code(s): I10 - Essential (primary) hypertension (6) Encephalopathy acute Problem: Acute (7) Discharge planning issues Problem: Acute (8) Acute allergic conjunctivitis of right eye Problem: Acute Description of Stay: Pt. admitted for UTI with sepsis, with elevated lactic acid that corrected rapidly via our sepsis protocol and getting pt. on IV abx rapidly. Urine culture did grow out yeast, but will have to treat this with a topical application at time of discharge as there were 2 serious adverse reactions with diflucan and current meds - plavix and effexor. will place her on bactrim DS bid x 7 days. Initially she had a great deal of confusion and emotional lability, with complete disorientation, but this resolved and she was back to baseline, with appropriate memory/recollection at time of discharge. initially I was concerned about return to home, but her function appears good enough to be safe at home and does not need LTCF placement as originally thought. DM2: because her glucose went into the 300's, I did increase her Lantus to 25 and put her on SSI, which did produce a 54 glucose this am, but she remained alert and it corrected with juice. Will have her resume her usual regimen at time of discharge. conjunctivitis right eye: gentamicin drops vulvavaginitis candidal: clotrimazole OTC x 7 days Procedures Performed: none Discharge Disposition: Home self care Disposition: Home self-care Condition: Good Discharge Activity: Activity as tolerated Discharge Diet: Consistent carbs Referrals: Medina,Aimee, DO [Staff Physician] - One Week Prescriptions (Any new or edited meds): Clotrimazole [Clotrimazole-7] 45 gm VG DAILY 7 Days #1 cream.appl Gentamicin Sulfate [Gentamicin 0.3% Ophthalmic Solution] 1 drop RIGHTEYE Q4H 5 Days #1 btl Sulfamethoxazole/Trimethoprim [Bactrim Ds] 1 tab PO BID #20 tab Complete Home Medications List: Complete Home Medication List: Nitroglycerin 0.4 mg SL [id number] PRN 01/25/16 traMADol HCL [Ultram] 50 mg PO QID PRN 01/25/16 Atorvastatin Calcium [Lipitor] 80 mg PO HS tablet 01/28/16 Brimonidine Tartrate [Brimonidine 0.2% Ophthalmic Solution] 1 drop EACHEYE BID 06/14/16 Gabapentin [Neurontin] 900 mg PO TID 06/14/16 Levothyroxine Sodium [Synthroid] 88 mcg PO DAILY 06/14/16 Oxybutynin Chloride [Ditropan] 5 mg PO TID 06/14/16 Metoprolol Succinate [Toprol Xl] 50 mg PO DAILY 05/01/17 Insulin Glargine,Hum.rec.anlog [Lantus] 18 units SC HS 06/20/17 Insulin Lispro [Humalog] 8 units SC TIDWM 06/20/17 Lisinopril [Zestril] 2.5 mg PO DAILY 06/20/17 Polyethylene Glycol 3350 [Miralax] 17 gm PO DAILY 06/20/17 Sennosides/Docusate Sodium [Senna-S Tablet] 1 each PO TID 06/20/17 Tobramycin/Dexamethasone [Tobramycin-Dexameth Ophth Susp] 5 ml OP QID 06/20/17 Aspirin 81 mg PO DAILY 07/14/17 Brimonidine Tartrate [Alphagan-P 0.1% Ophthalmic Solution] 5 ml OP DAILY Carboxymethyl/Glycerin/Poly80 [Refresh Optive Advanced Drops] 10 ml OP DAILY 12/29 Clopidogrel Bisulfate [Plavix] 75 mg PO DAILY 07/14/17 Furosemide [Lasix] 40 mg PO DAILY 07/14/17 Venlafaxine HCl 75 mg PO TID 07/14/17 Clotrimazole [Clotrimazole-7] 45 gm VG DAILY 7 Days #1 cream.appl 07/16/17 Gentamicin Sulfate [Gentamicin 0.3% Ophthalmic Solution] 1 drop RIGHTEYE Q4H 5 Days #1 btl 07/16/17 Sulfamethoxazole/Trimethoprim [Bactrim Ds] 1 tab PO BID #20 tab 07/16/17
[2017-07-16 11:11] VITALS: BP 141/62
[2017-07-16] MEDS ORDERED: INSULIN GLARGINE,HUM.REC.ANLOG 100 UNITS/ML VIAL SC SCH (21:00)
== END 2017-07-16 12:32 | disposition home or self-care (01) | DRG 689 ==
LOC: ER 15:55 → MS 18:01
PROVIDERS: ADMIT Family Medicine; ATTEND Internal Medicine
DX: N39.0 Urinary tract infection, site not specified (principal); G93.40 Encephalopathy, unspecified; F03.91 Unspecified dementia, unspecified severity, with behavioral disturbance; H10.11 Acute atopic conjunctivitis, right eye; E11.40 Type 2 diabetes mellitus with diabetic neuropathy, unspecified; E11.65 Type 2 diabetes mellitus with hyperglycemia; I10 Essential (primary) hypertension; Z79.4 Long term (current) use of insulin